=== PATIENT | female | born 1950 | race Caucasian/White ===

== ENCOUNTER → 2016-09-10 | Outpatient (CLI) | payer OTHER ==
[~2016-09-10] MED LIST: AMB5 PO; AMR2 PO; ARM1 PO; ATEN25TA PO; EFFSR75 PO; FRS/40 PO; GABA-113 PO; GLC500 PO; GLIM4TAB2 PO; LEVO150T PO; LISI-461 PO; MULT-506 PO; OSCD250 PO; POTA10CA28 PO; SIMV40TA2 PO
[2016-09-10 15:27] LABS: BASO % 0.2 %; BASO ABS # 0.02 K/uL (0-0.2); COMPLETE YES; EOS % 1.9 %; HEMATOCRIT 40.4 % (37-47); IG% 0.1 %; LYMPH % 19.5 %; LYMPH ABS # 1.64 K/uL (1.2-3.4); MEAN CORPUSCULAR HEMOGLOBIN 31.6 pg (25-34); MEAN CORPUSCULAR HGB CONC 35.1 g/dl (32-36); MEAN PLATELET VOLUME 8.9 fL (7.4-10.4); NEUT % 70.3 %; PLATELET COUNT 193 K/uL (130-400); RED BLOOD COUNT 4.49 M/uL (4.2-5.4); WHITE BLOOD COUNT 8.41 K/uL (4.8-10.8)
== END | disposition home or self-care (01) ==
LOC: C.LABSPEC 15:06
PROVIDERS: ATTEND Internal Medicine
DX: M11.872 Other specified crystal arthropathies, left ankle and foot (principal)

== ENCOUNTER → 2016-10-14 | Outpatient (CLI) | payer OTHER ==
[2016-10-14 14:45] LABS: BASO % 0.3 %; BASO ABS # 0.02 K/uL (0-0.2); COMPLETE YES; EOS % 2.2 %; HEMATOCRIT 41.4 % (37-47); IG% 0.5 %; LYMPH % 26.9 %; LYMPH ABS # 2.12 K/uL (1.2-3.4); MEAN CELL VOLUME 91.8 fL (80-100); MEAN CORPUSCULAR HEMOGLOBIN 31.5 pg (25-34); MEAN CORPUSCULAR HGB CONC 34.3 g/dl (32-36); MEAN PLATELET VOLUME 8.7 fL (7.4-10.4); MONO % 6.8 %; NEUT % 63.3 %; PLATELET COUNT 190 K/uL (130-400); RED BLOOD COUNT 4.51 M/uL (4.2-5.4); WHITE BLOOD COUNT 7.89 K/uL (4.8-10.8)
[2016-10-14 14:52] LABS: ALT/SGPT 26 U/L (12-78); AST/SGOT 15 U/L (15-37); BLOOD UREA NITROGEN 15 mg/dl (7-18); BUN/CREATININE RATIO 19.9 (10-20); CALCIUM 8.8 mg/dl (8.5-10.1); CARBON DIOXIDE 31 mmol/L (21-32); CHLORIDE 102 mmol/L (98-107); CHOLESTEROL 157 mg/dl (0-200); CREATININE 0.76 mg/dl (0.60-1.20); GLUCOSE 128 mg/dl (70-99); POTASSIUM 4.4 mmol/L (3.5-5.1); SODIUM 140 mmol/L (136-145)
[2016-10-14 15:00] LABS: ESTIMATED AVERAGE GLUCOSE 166 mg/dl; HA1C FLAG Normal (Normal)
[2016-10-14 15:03] LABS: ALB/GLOB RATIO 0.9 (0.9-2); ALKALINE PHOSPHATASE 60 U/L (45-117); CHOLESTEROL/HDL RATIO 2.7; HDL CHOLESTEROL 59 mg/dl; THYROID STIMULATING HORMONE 0.043 uIu/ml (0.300-4.500); TRIGLYCERIDES 160 mg/dl (0-150); VERY LOW DENSITY LIPOPROT CALC 32 mg/dl
[2016-10-14 15:20] LABS: THYROXINE (T4) 15.3 mcg/dl (4.5-10.9)
[2016-10-14 15:21] LABS: T3 TOTAL 1.08 ng/ml (0.60-1.81)
[2016-10-14 15:24] LABS: RATIO 8.9 mcg/mg (0-30.0)
== END | disposition home or self-care (01) ==
LOC: C.LABSPEC 14:33
PROVIDERS: ATTEND Internal Medicine
DX: M19.90 Unspecified osteoarthritis, unspecified site (principal); E03.9 Hypothyroidism, unspecified; I10 Essential (primary) hypertension; E11.9 Type 2 diabetes mellitus without complications; E78.5 Hyperlipidemia, unspecified; E55.9 Vitamin D deficiency, unspecified

== ENCOUNTER → 2016-10-22 | Outpatient (CLI) | payer OTHER ==
[~2016-10-22] MED LIST changes: +GADAVIST IV PRN
--- NOTE | 2016-10-22 15:31 | DIAGNOSTIC IMAGING REPORT ---
MRI OF THE BRAIN COMBO CLINICAL HISTORY: Meningioma. COMPARISON STUDY: CT of the brain dated 12/23/2014 and 02/10/2009. TECHNIQUE: MRI of the brain was performed utilizing various T1 and T2-weighted sequences in the axial, sagittal, and coronal planes. Contrast-enhanced sequences were acquired following the administration of 11 cc of Gadavist. FINDINGS: Brain parenchyma: There is a well-circumscribed homogeneously enhancing mass lesion centered in the right cavernous sinus measuring 3.0 x 3.9 x 2.7 cm. This extends along the greater wing of the right sphenoid and encases the right internal carotid artery. This also extends into the right sphenoid sinus. The appearance is typical for a meningioma, and this has likely not significantly changed from 12/23/2014 although direct comparison is difficult due to differences in modality. This mass approaches the right aspect of the optic chiasm and slightly deviates the pituitary infundibulum to the left. No additional enhancing lesions are identified. There is minimal patchy subcortical and periventricular microangiopathic disease. There is minimal surrounding edema within the medial right temporal lobe segment mass effect. No hemorrhage is seen. There is no restricted diffusion to suggest acute ischemia. No extra-axial fluid collection is seen. The cerebellar tonsils are normal in configuration. Ventricles, sulci, and cisterns: Normal in configuration. Pituitary and sella: Partially empty sella is incidentally noted. Intracranial vasculature: Normal flow voids are maintained at the skull base. Orbits: The bony orbits are grossly intact. Orbital contents are normal in appearance noting bilateral ocular lens implants. Sinuses and mastoids: There are large bilateral mastoid effusions. Nodular soft tissue is present within the right sphenoid sinus. The remaining paranasal sinuses are clear. Calvarium: Unremarkable. Cervical cord: Partially visualized cervical spinal cord is normal in morphology and signal intensity. IMPRESSION: 1. There is a well-circumscribed and homogeneously enhancing mass lesion centered in the right cavernous sinus as detailed above. This encases the right internal carotid artery and causes mild mass effect on the right temporal lobe. This lesion is typical in appearance for a large meningioma, and this is likely similar in appearance to the 12/23/2014 CT scan; however, direct comparison is difficult due to differences in modality. 2. No additional enhancing mass lesion is identified. 3. There is no hemorrhage, midline shift, or evidence of acute ischemia. Electronically signed by: Donell Mortensen M.D. 10/22/2016 3:30 PM Dictated Date/Time: 10/22/2016 2:24 PM
== END | disposition home or self-care (01) ==
LOC: C.MRI 11:59
PROVIDERS: ATTEND Internal Medicine
DX: C70.9 Malignant neoplasm of meninges, unspecified (principal)

== ENCOUNTER → 2017-03-29 | Outpatient (CLI) | payer OTHER ==
[~2017-03-29] MED LIST changes: -GADAVIST IV PRN
[2017-03-29 17:06] LABS: BASO % 0.5 %; BASO ABS # 0.03 K/uL (0-0.2); COMPLETE YES; EOS % 5.9 %; IG% 0.3 %; LYMPH % 27.7 %; LYMPH ABS # 1.82 K/uL (1.2-3.4); MEAN CELL VOLUME 94.7 fL (80-100); MEAN CORPUSCULAR HEMOGLOBIN 31.9 pg (25-34); MEAN CORPUSCULAR HGB CONC 33.7 g/dl (32-36); MONO % 8.2 %; NEUT % 57.4 %; PLATELET COUNT 208 K/uL (130-400); RED BLOOD COUNT 4.54 M/uL (4.2-5.4); WHITE BLOOD COUNT 6.57 K/uL (4.8-10.8)
[2017-03-29 17:17] LABS: BLOOD UREA NITROGEN 12 mg/dl (7-18); BUN/CREATININE RATIO 13.5 (10-20); CALCIUM 8.8 mg/dl (8.5-10.1); CARBON DIOXIDE 28 mmol/L (21-32); CHLORIDE 102 mmol/L (98-107); CREATININE 0.87 mg/dl (0.60-1.20); GLUCOSE 171 mg/dl (70-99); POTASSIUM 4.1 mmol/L (3.5-5.1); SODIUM 137 mmol/L (136-145)
[2017-03-29 17:29] LABS: CHOLESTEROL 136 mg/dl (0-200); CHOLESTEROL/HDL RATIO 2.9; HDL CHOLESTEROL 47 mg/dl; LDL CHOLESTEROL CALCULATED 53 mg/dl; THYROID STIMULATING HORMONE 0.692 uIu/ml (0.300-4.500); TRIGLYCERIDES 178 mg/dl (0-150); VERY LOW DENSITY LIPOPROT CALC 36 mg/dl
[2017-03-30 06:24] LABS: ESTIMATED AVERAGE GLUCOSE 163 mg/dl; HA1C FLAG Normal (Normal)
== END | disposition home or self-care (01) ==
LOC: C.LABSPEC 16:23
PROVIDERS: ATTEND Internal Medicine
DX: M19.90 Unspecified osteoarthritis, unspecified site (principal); I10 Essential (primary) hypertension; E78.5 Hyperlipidemia, unspecified; E03.9 Hypothyroidism, unspecified

== ENCOUNTER → 2017-08-02 | Outpatient (CLI) | payer OTHER ==
[2017-08-02 15:21] LABS: HEMOGLOBIN A1C 8.6 % (4.5-5.6)
[2017-08-02 17:01] LABS: BLOOD UREA NITROGEN 15 mg/dl (7-18); CALCIUM 8.8 mg/dl (8.5-10.1); CARBON DIOXIDE 32 mmol/L (21-32); CHOLESTEROL 162 mg/dl (0-200); CREATININE 0.82 mg/dl (0.60-1.20); GLUCOSE 152 mg/dl (70-99); SODIUM 137 mmol/L (136-145)
[2017-08-02 17:06] LABS: LDL CHOLESTEROL (DIRECT) 92 mg/dl
== END | disposition home or self-care (01) ==
LOC: C.LABSPEC 14:48
PROVIDERS: ATTEND Internal Medicine
DX: I10 Essential (primary) hypertension (principal); E78.5 Hyperlipidemia, unspecified; E11.9 Type 2 diabetes mellitus without complications

== ENCOUNTER → 2017-12-01 | Outpatient (CLI) | payer OTHER ==
[2017-12-01 17:13] LABS: BLOOD UREA NITROGEN 12 mg/dl (7-18); CALCIUM 8.8 mg/dl (8.5-10.1); CARBON DIOXIDE 28 mmol/L (21-32); CREATININE 0.88 mg/dl (0.60-1.20); GLUCOSE 212 mg/dl (70-99); POTASSIUM 4.2 mmol/L (3.5-5.1); SODIUM 137 mmol/L (136-145)
[2017-12-01 17:16] LABS: ALKALINE PHOSPHATASE 62 U/L (45-117); ALT/SGPT 32 U/L (12-78); AST/SGOT 36 U/L (15-37); CHOLESTEROL 218 mg/dl (0-200); LDL CHOLESTEROL (DIRECT) 156 mg/dl; TOTAL PROTEIN 7.7 gm/dl (6.4-8.2)
[2017-12-02 06:57] LABS: HEMOGLOBIN A1C 8.9 % (4.5-5.6)
== END | disposition home or self-care (01) ==
LOC: C.LABSPEC 16:37
PROVIDERS: ATTEND Internal Medicine
DX: E11.65 Type 2 diabetes mellitus with hyperglycemia (principal); I10 Essential (primary) hypertension; E66.01 Morbid (severe) obesity due to excess calories; E03.9 Hypothyroidism, unspecified

== ENCOUNTER 2019-05-02 16:30 | Inpatient (IN) ==
[~2019-05-02 16:30] MED LIST changes: -AMB5 PO; -AMR2 PO; -ARM1 PO; -ATEN25TA PO; +ATROPINE SULFATE 0.1 MG/ML 10ML SYR IV ONE; -EFFSR75 PO; -FRS/40 PO; -GABA-113 PO; -GLC500 PO; -GLIM4TAB2 PO; -LEVO150T PO; -LISI-461 PO; -MULT-506 PO; -OSCD250 PO; -POTA10CA28 PO; -SIMV40TA2 PO
[2019-05-02] MEDS ORDERED: ATROPINE SO4 1 MG/ML 1ML VIAL ONE (17:17)
[2019-05-02] MEDS ORDERED: DOPamine 400MG / 250ML D5W IV ONE (17:17)
[2019-05-02 17:19] LABS: Basophils # (auto) 0.01 K/uL (0-0.2); Basophils % (auto) 0.1 %; Eosinophils # (auto) 0.05 K/uL (0-0.5); Eosinophils % (auto) 0.6 %; Hematocrit (blood only) 40.1 % (37-47); Hemoglobin 13.8 g/dL (12.0-16.0); Immature Granulocytes # (auto) 0.02 K/uL (0.00-0.02); Immature Granulocytes % (auto) 0.2 %; Lymphocytes # (auto) 1.24 K/uL (1.2-3.4); Lymphocytes % (auto) 13.9 %; Mean Corpuscular Hemoglobin 33.1 pg (25-34); Mean Corpuscular Hgb Conc 34.4 g/dL (32-36); Mean Corpuscular Volume 96.2 fL (80-100); Mean Platelet Volume 9.1 fL (7.4-10.4); Monocytes # (auto) 0.49 K/uL (0.11-0.59); Monocytes % (auto) 5.5 %; Neutrophils # (auto) 7.09 K/uL (1.4-6.5); Neutrophils % (auto) 79.7 %; Platelet Count 198 K/uL (130-400); RDW Coefficient of Variation 13.4 % (11.5-14.5); Red Blood Count 4.17 M/uL (4.2-5.4)
[2019-05-02 17:24] LABS: iSTAT Creatinine 0.9 mg/dl (0.6-1.3); iSTAT Hemoglobin 13.3 g/dl (12.0-16.0); iSTAT Ionized Calcium 0.97 mmol/l (1.12-1.32)
[2019-05-02] MEDS ORDERED: RAPID SEQUENCE INDUCTION BAG ONE (17:25)
--- NOTE | 2019-05-02 17:30 | XRay Report ---
XR chest 1V portable CLINICAL HISTORY: 68 years-old Female presenting with Chest Pain. TECHNIQUE: Portable semiupright AP view of the chest was obtained. Pulmonary vascular prominence. COMPARISON: 12/23/2014. FINDINGS: Atherosclerosis of the aortic arch. Cardiac silhouette enlarged. Pulmonary vascular prominence. No fo cornelio opacity. No large effusion or pneumothorax. Osseous structures normal. . External leads project o ernst the right upper quadrant and thorax. IMPRESSION: 1. Cardiomegaly with mild volume overload. No advanced congestive change. No. Pulmonary edema. Electronically signed by: Garry Guillen M.D. 05/02/2019 5:29 PM
[2019-05-02] MEDS ORDERED: CALCIUM GLUCONATE 10% 10 ML VIAL IV ONE (17:32)
[2019-05-02] MEDS ORDERED: HEPARIN (PORCINE) 1000 UNIT/ML 10 ML (CATH LAB USE ONLY) ONE (17:34)
[2019-05-02] MEDS ORDERED: NiCARDipine HCL INJ 2.5 MG/ML 10 ML AMP ONE (17:34)
[2019-05-02] MEDS ORDERED: MIDAZOLAM HCL 1 MG/ML 2ML VIAL ONE (17:34)
[2019-05-02] MEDS ORDERED: fentaNYL citrate 100 MCG/2 ML VIAL ONE (17:34)
[2019-05-02] MEDS ORDERED: NITROGLYCERIN/D5W 100MCG/ML 20ML SYR ONE (17:35)
[2019-05-02 17:37] LABS: BUN Creatinine Ratio 15.3 (10-20); Blood Urea Nitrogen 15 mg/dl (7-18); Calcium 8.7 mg/dl (8.5-10.1); Carbon Dioxide 25 mmol/L (21-32); Chloride 104 mmol/L (98-107); Creatinine Clr Calc Pharmacy 62.2 ml/min; Est GFR (African American) 68.7; Est GFR (Non-African American) 59.3; Glucose 236 mg/dl (70-99); Lipase 106 U/L (73-393); Magnesium 1.6 mg/dl (1.8-2.4); Potassium 4.7 mmol/L (3.5-5.1); Sodium 138 mmol/L (136-145)
[2019-05-02] MEDS ORDERED: ONDANSETRON INJ 2 MG/ML 2 ML VIAL ONE (17:39)
[2019-05-02 17:41] LABS: Troponin I < 0.015 ng/ml (0-0.045)
[2019-05-02] MEDS ORDERED: ICU PROTOCOL FOR HYPERGLYCEMIA PRN ×2 (17:52→20:34)
--- NOTE | 2019-05-02 18:38 | Pre Anesthesia Assessment ---
Date of Service May 02, 2019 Pre Sedation Assessment Vital Signs Temp Pulse Pulse Resp BP BP Pulse Ox 05/02/19 17:20 32 L 22 133/52 L 95 05/02/19 16:44 97.3 F L 31 L 22 119/50 L 93 Cardiovascular RRR, no murmur, no edema Respiratory normal respiratory effort, lungs clear to auscultation Pre-Sedation Airway Assessment Smoking Status: Never smoker Hx Sleep Apnea: No Hx Difficult Intubation: No Short, Thick Neck: No Thyromental Distance: < 3.5 Finger Breadths Oral Cavity: + WNL Mallampati Class: III ASA: ASA3 Procedure Planning Contraindications for Sedation: none Current Medications Reviewed: Yes Notes The planned sedation has been discussed with the patient. Informed Consent was obtained. I have identified the patient, determined the appropriateness of sedation and have assessed the patient immediately prior to the procedure. All medicine(s) and interventions are by my order.
--- NOTE | 2019-05-02 18:38 | Post Anesthesia Assessment ---
Date of Service May 02, 2019 Post Sedation Assessment Vital Signs Temp Pulse Pulse Resp BP BP Pulse Ox 05/02/19 17:20 32 L 22 133/52 L 95 05/02/19 16:44 97.3 F L 31 L 22 119/50 L 93 Recovery Score Activity: Moves 4 extremities Respiration: Deep Breath/Cough Circulation: +/-20% PreAnes Value Consciousness: Fully Awake Oxygen Saturation: O2 needed for >90% Discharge Sedation Level of Care: Fast Track Phase II Post Sedation Plan On clinical assessment, the patient appears to have tolerated the sedation without complications. Patient is recovering as anticipated. Patient will continue to be monitored by nursing and may be discharged when sedation discharge criteria are met per below protocol. Upon Completions of procedure and additional 15 minutes continue every 5 minute vital signs and the P.A.R. score; then discharge to a Phase I or Fast Track to Phase II per the following guidelines: * Discharge Patient to appropriate Phase II area if PAR is 8 or greater or return to pre- procedure baseline. The post - procedure orders will be as directed. * If PAR score is less than 8 or not return to pre-procedure baseline then patient will follow Phase I monitoring till PAR is reached for Phase II. The Phase I may be done in procedure room or may call to secure a Phase I area. * If naloxone or flumazenil are used for reversal, hold in Phase I for continued monitoring from when last reversal dose was given for a minimum of 60 minutes or longer pending the nurse and/or physician discretion of patient condition before discharge to Phase II. Please call the Sedation Physician to re-evaluate and complete post-note for discharge to Phase II area. Do NOT discharge from procedure sedation or Phase 1 until post- sedation evaluation note is complete by procedure /sedation MD Sedation Discharge Instructions to be given to the patient at discharge to home.
--- NOTE | 2019-05-02 18:47 | Cardiac Catheterization ---
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 Cardiac Status Clinical evaluation leading to the procedure CAD Presenation: Sx unlikely to be ischemic Anginal Classification: No Symptoms Heart Failure: No Cardiogenic Shock within 24 Hours: No Cardiac Arrest within 24 Hours: No Imaging Studies Past 6 Months: No Stress Studies Past 6 Months: No Diagnostic Physicians Name: Boris Lantigua MD Status: Urgent Closure Device Percutaneous Entry Location: RT internal jugular Closure Device: None-Manual Hold Recommendations: Medical Therapy and/or Counseling and Management Recommendatons (EP evaluation tomorrow for permanent pacemaker) Intraprocedure Events Significant Disection: No Perforation: No Cardiac Cath Procedure Full Procedure Date May 02, 2019 Pre-Procedure Diagnosis Pre-Procedure Diagnosis: Cardiothoracic Symptom (Complete heart block) AUC Score AUC Score: 7 Post-Procedure Diagnosis Post-Procedure Diagnosis: Cardiothoracic Finding (Complete heart block) Procedure(s) Performed Procedure(s) Performed: Temporary Pacemaker and Procedure (Right radial arterial line) Lcsw Boris Lantigua MD Online Facilitator(s) Omar Estimated Blood Loss Estimated Blood Loss: 5 Medication(s) Medication(s): Fentanyl and Versed Summary of Findings Indication: Complete heart block with hemdynamic instability Procedure: - Moderate sedation and local anesthesia with lidocaine - Right IJ access with 6Fr sheath under ultrasound guidance. - 6Fr temporary pacing wire navigated into RV under fluoroscopy - Appropriate pacing confirmed down to output <1 mA - Right radial artery 20ga arterial line placed. - Dopamine weaned off - Final pacemaker settings: VVI 60bpm, output 5 mA Summary: 1. Successful placement of temporary transvenous pacemaker via right internal jugular vein. 2. Successful placement of right radial A-line. Recommendations: - EP evaluation for permanent pacemaker tomorrow. Hemodynamics Rest Ao:: 133/64/87 Final Ao: -- LV: -- Recommendations Recommendations: Medical Therapy and/or Counseling and Management Recommendatons (EP evaluation tomorrow for permanent pacemaker) Specimens Specimens: None Radiation Exposure (mGy) 35 Contrast (mls) -- Fluids (cc crystalloids) Fluids (cc crystalloids): 54 Drains Drains: none Anesthesia moderate Procedural Complication(s) None Disposition ICU I attest to the content of the Intraoperative Record and any orders documented therein. Any exceptions are noted below.
[2019-05-02] MEDS ORDERED: DOCUSATE SODIUM 100 MG CAP PO PRN (19:58)
--- NOTE | 2019-05-02 20:14 | Critical Care Consultation ---
Date of Consultation May 02, 2019 Assessment & Plan (1) Admitted to intensive care unit: Reason Critically Ill: 68-year-old female with idioventricular rhythm progressing to complete heart block requiring emergent placement of RIGHT-sided internal jugular transvenous pacemaker requiring close hemodynamic monitoring status post intervention. NEURO - * CAM ICU: NEGATIVE * Depression: Continue home medications CARDIAC/VASCULAR - * Complete heart block: * Currently with capture utilizing transvenous pacemaker. * Monitor closely for any dislodgment or changes in rhythm. * Further evaluation with possible need for permanent pacemaker placement. * Agree with assessment of Lyme study. * Monitor on telemetry. RESPIRATORY - * Saturating well on room air. GI/NUTRITION - * N.p.o. after midnight with possible planned procedure tomorrow. RENAL/LYTES - * No significant electrolyte derangements. - * No concerns at this time. ENDO - * DMII * BSGs per unit protocol. ISS --> gtt per unit policy. * Hypothyroidism: * Will check TSH/Free T4 levels, however w/ the absence of other worrisome s/s, would be unlikely contributor. HEME - * Stable H&H ID - * No concerns for infection at this time. LINES/IV ACCESS - * PIVs x2 * RIGHT IJ Transvenous Pacemaker DVT PROPHYLAXIS - * Per cardiology * SCDs I have personally spent 35 minutes of critical care time in the direct management of this patient. This is a life/limb threatening event. This includes time spent evaluating patient, direct bedside care, chart review, placing orders, interpretation of diagnostic studies, discussion with consultants, patient, and family members, as well as other required patient management activities. This time is exclusive of all separately billable procedures, and teaching time and separate from and in addition to any other critical care service time. Thank you for allowing us to participate in the care of this patient. Please refer to my attending physician's documentation for any further recommendations. (2) Heart block AV complete: (3) Diabetes: (4) Hypertension: (5) Hypercholesteremia: (6) Breast cancer: (7) Benign brain tumor: (8) Hypothyroid: (9) Depression: Supervising Physician Co-Signing Physician Notes I have reviewed the documentation of Angie Foreman we discussed the patient via telephone. Agree with documentation. History of Present Illness Attending Physician: Shantell Yoder DO History of Present Illness Patient is a 68-year-old female with a significant past medical history of hypertension, hyperlipidemia, breast cancer, and benign brain tumor who presented to the emergency department earlier today with lightheadedness, fatigue, and feeling "off". She woke up today and reported feeling the symptoms. She presented to her orthopedic appointment and had cortisone injections in the bilateral knees. After this, she had worsening lightheadedness and diaphoresis. She was brought immediately to the emergency department where she was found to have a heart rate in the 30s. She was started on a dopamine drip and subsequently taken to the catheterization lab where she underwent successful placement of RIGHT internal jugular transvenous pacer placement. Procedure was uneventful. She was transferred to the ICU for continued management. Upon evaluation in the ICU, the patient is awake, alert, and oriented. She reports feeling much better at this time. She endorses no further lightheadedness, dizziness, or diaphoresis. Prior to the event, she denies any chest pain, palpitations, or pleuritic pain. Currently, she offers no complaints at this time. Allergies Allergy/AdvReac Type Severity Reaction Status Date / Time No Known Allergies Allergy NKA Verified 12/23/14 23:07 Home Medications Home Medications Medication Instructions Recorded Confirmed Type furosemide 40 mg PO DAILY 05/02/19 05/02/19 History gabapentin 300 mg PO TID 05/02/19 05/03/19 History glimepiride 2 mg PO QPM 05/02/19 05/02/19 History glimepiride 4 mg PO QAM 05/02/19 05/02/19 History levothyroxine 150 mcg PO DAILY 05/02/19 05/02/19 History lisinopril 10 mg PO DAILY 05/02/19 05/02/19 History metformin 1,000 mg PO QPM 05/02/19 05/02/19 History metformin 500 mg PO QAM 05/02/19 05/02/19 History potassium chloride 10 meq PO BID 05/02/19 05/02/19 History simvastatin 40 mg PO HS 05/02/19 05/02/19 History venlafaxine 75 mg PO DAILY 05/02/19 05/02/19 History zolpidem 10 mg PO HS 05/02/19 05/02/19 History nystatin 5 ml PO ACHS 7 Days #150 ml 05/04/19 Rx Patient History Medical History Diabetes (Acute) Hypertension (Chronic) Hypercholesteremia (Chronic) Breast cancer (Resolved) s/p lumpectomy Benign brain tumor (Chronic) meningioma Hypothyroid Surgical History History of cholecystectomy (Resolved) History of carpal tunnel surgery History of dilation and curettage History of lumpectomy History of parathyroid surgery Family History Father Pacemaker Social History Preferred Language: [place] Communication Ability: Effective Technician Automatic Required: No Beliefs That Will Affect Care: None marital status: Current Living Situation: Spouse Feels Safe at Home: Yes Smoking Status: Never smoker Second Hand Exposure: No ; Hx Alcohol Use: No Hx Substance Use: No Review of Systems Review of Systems: A complete 10 point review of systems was reviewed with the patient with pertinent positives and negatives as per history of present illness. All else were negative. Physical Exam Physical Exam: VITAL SIGNS - Vital signs and nursing notes were reviewed. GENERAL - 68-year-old female appearing her stated age who is in no acute distress. Communicates well with provider and answers questions appropriately. HEAD - NC/AT. EYES - PERRL with EOMI bilaterally. Sclera anicteric. Palpebral conjunctiva pink and moist with no injection noted. EARS - No deformities of external structures noted on gross examination bilaterally. NOSE - Midline and without cyanosis. No epistaxis or purulent drainage noted. MOUTH/OROPHARYNX - Without perioral cyanosis. Buccal mucosa pink and moist. NECK - Neck with FROM. Supple to palpation. RIGHT IJ transvenous pacer in place. Dressing clean, dry, and intact. LUNGS - Chest wall symmetric without accessory muscle use, intercostals retractions, or central cyanosis. Normal vesicular breath sounds CTA B/L. No wheezes, rales, or rhonchi appreciated. CARDIAC - RRR with S1/S2. No murmur, rubs, or gallops appreciated. No reproducible tenderness to palpation appreciated over the anterior chest wall. ABDOMEN - Abdominal contour obese without pulsations or visible masses. BS normoactive all four quadrants. No tenderness, palpable masses, hepatosplenomegaly, or ascites noted. EXTREMITIES - No clubbing or peripheral cyanosis. No pretibial edema present. +3/5 radial and dorsalis pedis pulses palpated throughout. +5/5 strength noted in UE/LE bilaterally. NEUROLOGIC - Cranial nerves II through XII grossly intact. Sensory intact to light touch throughout. PSYCH - A&Ox3 and cooperates fully with examiner. Pt is very pleasant and interacts well with examiner. Results & Data Vital Signs (Past 12 Hours) Vital Signs Temp Pulse Pulse Resp BP BP Pulse Ox 05/02/19 19:50 84 31 H 92 05/02/19 19:40 86 18 92 05/02/19 19:30 86 18 91 05/02/19 19:20 86 23 92 05/02/19 19:10 89 94 05/02/19 19:00 36.8 C 87 95 05/02/19 18:50 87 93 05/02/19 17:20 32 L 22 133/52 L 95 05/02/19 16:44 36.3 C L 31 L 22 119/50 L 93 PG Care Time/CCT Total # of Minutes Spent Total Time Spent with Patient: Total time spent is greater than 50% in coordination of care (as documented) at patient's floor/unit and/or counseling patient: Critical Care Time: Yes Total Critical Care Time: 35 (1) Diabetes Diabetes mellitus complication status: without complication Diabetes mellitus skilled nursing insulin use: without health information systems technician use Diabetes mellitus type: type 2 Qualified Code(s): E11.9 - Type 2 diabetes mellitus without complications (2) Depression Active/Remission status: remission status unspecified Depression Type: major depressive disorder Major depression recurrence: recurrent Qualified Code(s): F33.9 - Major depressive disorder, recurrent, unspecified (3) Hypothyroid Hypothyroidism type: unspecified Qualified Code(s): E03.9 - Hypothyroidism, unspecified (4) Hypertension Hypertension type: essential hypertension Qualified Code(s): I10 - Essential (primary) hypertension
--- NOTE | 2019-05-02 20:19 | Emergency Department Note ---
Entered by Sabiha Sánchez acting as a scribe for Oscar Bush MD ED Provider Note CHIEF COMPLAINT: [] HISTORY OF PRESENT ILLNESS: The patient is a [] year old [] who presents to the Emergency Room with complaints of [] Pt denies LOC, headache, fevers, chills, diaphoresis, visual changes, neck pain, chest pain, breathing difficulties, nausea, vomiting, abdominal pain, back pain, melena, hematochezia, urinary symptoms, numbness, weakness, lymphadenopathy, rash, or other complaints. REVIEW OF SYSTEMS: See HPI for pertinent positives and negatives. A total of ten systems were revi ewed and were otherwise negative. PMHx/PSHx: [] SOCIAL HISTORY: Patient lives at home. PHYSICAL EXAM: GENERAL: Awake, alert, well-appearing, in no distress HENT: Normocephalic, atraumatic. Oropharynx unremarkable. EYES: PERRL. Normal conjunctiva. Sclera non-icteric. NECK: Inspection normal. Non-tender. Supple. No nuchal rigidity. FROM. No masses. RESPIRATORY: Clear to auscultation. No wheezes. No rales. Normal respiratory effort. CARDIAC: Normal rate. Normal rhythm. No murmurs. No rubs. Extremities warm and well perfused. Pulses equal. No JVD. GI: Soft, non-distended. No tenderness to palpation. No rebound or guarding. No masses. RECTAL: Deferred. MUSCULOSKELETAL: Atraumatic. Chest examination reveals no tenderness. The back is symmetrical on inspection without obvious abnormality. There is no CVA tenderness to palpation. No joint edema. LOWER EXTREMITIES: Calves are equal size bilaterally and non-tender. No edema. No discoloration. NEURO: Normal sensorium. No sensory or motor deficits noted. SKIN: No rash or jaundice noted. EMERGENCY DEPARTMENT COURSE: 1649: Past medical records reviewed. The patient was evaluated in room B12B, and a complete history and physical examination were performed. MEDICAL DECISION MAKING: [] IMPRESSION: [] PLAN: [] The scribe's documentation has been prepared under my direction and personally reviewed by me in its entirety. I confirm that the note above accurately reflects all work, treatment, procedures, and medical decision making performed by me. Past Med/Surg History Medical History Diabetes (Acute) Hypertension (Chronic) Hypercholesteremia (Chronic) Breast cancer (Resolved) Benign brain tumor (Chronic) Surgical History History of cholecystectomy (Resolved) Discharge Plan Visit Data Chief Complaint: Shortness of Breath/Dyspnea Stated Complaint: HARD BREATHING ED Provider: Oscar Bush Prescriptions Prescriptions: No Action Anastrozole (Arimidex *) 1 MG tablet 1 mg PO DAILY Qty: 0 RF: 0 Calcium/Vitamin D (Os-[place] 250 With D *) tablet 0.5 tab PO BID Qty: 0 RF: 0 Glimepiride (Amaryl *) 4 MG tablet 2 mg PO QPM Qty: 0 RF: 0 Lisinopril (Zestril) 10 MG tablet 10 mg PO QPM Qty: 0 RF: 0 Metformin HCL (Glucophage *) 1,000 MG tablet 1,000 mg PO dinner time Qty: 0 RF: 0 Multivitamin tablet 1 tab PO DAILY Qty: 0 RF: 0 Simvastatin (Zocor) 40 MG tablet 40 mg PO QPM Qty: 0 RF: 0 Gabapentin (Neurontin) 300 MG capsule 300 mg PO TID Qty: 0 RF: 0 Furosemide (Lasix) 40 MG tablet 40 mg PO DAILY Qty: 0 RF: 0 Metformin HCL (Glucophage *) 1,000 MG tablet 500 mg PO AM Qty: 0 RF: 0 Potassium Chloride (Micro-K Ext Rel) 10 MEQ CONTR REL CAP 10 meq PO BID Qty: 0 RF: 0 Venlafaxine Ext Rel (Effexor Extended Rel *) 75 MG CONTR REL CAP 75 mg PO DAILY Qty: 0 RF: 0 Zolpidem Tartrate (Ambien *) 5 MG tablet 10 mg PO HS Qty: 0 RF: 0 GLIMEPIRIDE 4 MG tablet 4 mg PO QAM Qty: 0 RF: 0 LEVOTHYROXINE SODIUM (SYNTHROID) 150 MCG tablet 150 mcg PO DAILY Qty: 0 RF: 0 ATENOLOL (TENORMIN) 25 MG tablet 0.5 tab PO DAILY 30 Days Qty: 30 RF: 5
--- NOTE | 2019-05-02 20:41 | History & Physical Report ---
Date of Service May 02, 2019 Assessment & Plan (1) Heart block AV complete: Patient presented in what appears to be AV disassociation, complete heart block with rate in the 30's variable blood pressure requiring Atropine and Dopamine infusion. S/p placement of temporary pacemaker by Dr. Lantigua. Presently seems to be in NSR without pacer assistance. Blood pressure is stable. Patient is asymptomatic. Uncertain etiology. Patient is on Atenolol 12.5mg at home. She has thyroid disease. No known tick exposure. Her father had a pacemaker placed in his late 60's, uncertain of the details. -Admit to MICU -Temporary pacer in place - VVI, rate of 60, 5mA -Hold Atenolol -Check TSH -Check Lyme serology -Optimize electrolytes - will replete Mg with 2gm, repeat level in AM. Repeat ionized calcium level in AM and replete if still low after Mg supplementation. -NPO after midnight tonight -Plan for permanent pacemaker placement in AM Present on Admission?: Yes (2) Hypertension: Blood pressure presently stable at 138/60 -Holding Atenolol for now -Hold Lisinopril for now, may resume tomorrow -Continue to monitor Present on Admission?: Yes (3) Hypercholesteremia: Chronic. Stable -Continue Simvastatin Present on Admission?: Yes (4) Diabetes: DMII fairly well controlled on oral agents, Metformin and Glimepiride. AIC = 7.7 in October 2018 -Hold Metformin and Glimepiride while inpatient -ICU insulin protocol -Continue Gabapentin -Repeat AIC -CC diet tonight, NPO after midnight Present on Admission?: Yes (5) Hypothyroid: Chronic. -Check TSH -Continue Synthroid Present on Admission?: Yes (6) Depression: Chronic. Stable -Continue Venlafaxine F/E/N - Heplock. Monitor electrolytes and replete as needed. Mg x 2 gm, repeat Mg and Ca levels in AM, continue Zolpidem as needed for insomnia Ppx - SCDs Code - Full per discussion with patient Disposition - MICU History of Present Illness Chief Complaint: SOB, diaphoresis Primary Care Provider: Hubert Cobos MD Ivett Chan is a pleasant 68yo C female with history of HTN, HLP, DM and Hypothyroidism presenting with symptomatic bradycardia, found to be in complete heart block. Patient states that around 13:00 today she began to feel "loopy" with slight shortness of breath, dizziness and diaphoresis. She was able to go to her appointment for her knee injection. Symptoms persisted through the afternoon so the patient came to the ER. Upon arrival she was found to be in complete heart block, rate of 31 bpm, variable blood pressures. Dr. Lantigua from Cardiology was consulted and the patient was taken for placement of a temporary pacemaker. Patient was administered 1mg of atropine and was started on a dopamine infusion which has since been discontinued. She had a temporary pacemaker placed through right internal jugular as well as placement of a right arterial line. Settings of VVI, 60bpm, 5mA. Procedure was well tolerated with no complications identified. The patient was transferred to the MICU for overnight, plans for permanent pacemaker placement in AM. Patient with no complaints at present. Denies ever having CP, palpitations, or syncope. Denies abdominal pain, nausea, vomiting, diarrhea or constipation. No additional complaints at this time. Appears to be in NSR at 86 bpm. No additional complaints at this time. Allergies Allergy/AdvReac Type Severity Reaction Status Date / Time No Known Allergies Allergy NKA Verified 12/23/14 23:07 Home Medications Home Medications Medication Instructions Recorded Confirmed Type atenolol 12.5 mg PO DAILY 05/02/19 05/02/19 History furosemide 40 mg PO DAILY 05/02/19 05/02/19 History gabapentin 300 mg PO UD 05/02/19 05/02/19 History glimepiride 2 mg PO QPM 05/02/19 05/02/19 History glimepiride 4 mg PO QAM 05/02/19 05/02/19 History levothyroxine 150 mcg PO DAILY 05/02/19 05/02/19 History lisinopril 10 mg PO DAILY 05/02/19 05/02/19 History metformin 1,000 mg PO QPM 05/02/19 05/02/19 History metformin 500 mg PO QAM 05/02/19 05/02/19 History potassium chloride 10 meq PO BID 05/02/19 05/02/19 History simvastatin 40 mg PO HS 05/02/19 05/02/19 History venlafaxine 75 mg PO DAILY 05/02/19 05/02/19 History zolpidem 10 mg PO HS 05/02/19 05/02/19 History Past Med/Surg History Medical History Diabetes (Acute) Hypertension (Chronic) Hypercholesteremia (Chronic) Breast cancer (Resolved) s/p lumpectomy Benign brain tumor (Chronic) meningioma Hypothyroid Surgical History History of cholecystectomy (Resolved) History of carpal tunnel surgery History of dilation and curettage History of lumpectomy History of parathyroid surgery Family History Father Pacemaker Social History Preferred Language: Malay Communication Ability: Effective 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 Beliefs That Will Affect Care: None Current Living Situation: Spouse Other Information That Helps Us Care for You: No Feels Safe at Home: Yes Safety Concerns: Feels Safe At This Time Smoking Status: Never smoker Do You Dip or Chew Tobacco: No ; Second Hand Exposure: No ; Tobacco Cessation Education Requested by Patient: No Hx Alcohol Use: No Hx Substance Use: No Review of Systems Review of Systems: All systems reviewed & are unremarkable except as noted in HPI & below Physical Exam Physical Exam: General: patient resting comfortably, NAD, non-toxic in appearance, AA&O x 4 Skin: warm, dry, intact, no rashes or lesions HEENT: NC/AT, PERRL, EOMI, anicteric sclera, conjunctiva without injection, external ear normal to inspection and nontender, nares patent, moist mucus membranes, dentition intact, no oropharyngeal lesions, neck supple, trachea midline, no LAD, no thyromegaly, no JVD, right IJ in place with pacer wire present. No bleeding, dressing intact Heart: +S1/S2, regular, no m/r/g Lungs: equal air entry bilaterally, no rales/rhonchi/wheezes Abd: +BS, soft, NT/ND, no masses/organomegaly/ascites Ext: warm, 2+ pulses in UE/LE bilaterally, no clubbing/cyanosis or edema, right radial arterial line in place, no bleeding/hematoma, dressing intact Neuro: nonfocal, patient AA&O x 4, speech intact, no facial droop, moving all extremities on command with equal strength 5/5 Results & Data Vital Signs (Past 12 Hours) Vital Signs Temp Pulse Pulse Resp BP BP Pulse Ox 05/02/19 19:50 84 31 H 92 10/09/19 19:40 86 18 92 05/02/19 19:30 86 18 91 05/02/19 19:20 86 23 92 05/02/19 19:10 89 94 05/02/19 19:00 36.8 C 87 95 05/02/19 18:50 87 93 05/02/19 17:20 32 L 22 133/52 L 95 05/02/19 16:44 36.3 C L 31 L 22 119/50 L 93 Laboratory Results Lab Results 05/02/19 05/02/19 05/02/19 Range/Units 17:10 17:10 17:10 WBC 8.90 (4.8-10.8) K/uL RBC 4.17 L (4.2-5.4) M/uL Hgb 13.8 (12.0-16.0) g/dL POC Hgb 13.3 (12.0-16.0) g/dl Hct 40.1 (37-47) % POC Hct 39 (37-47) % MCV 96.2 (80-100) fL MCH 33.1 (25-34) pg MCHC 34.4 (32-36) g/dL RDW Std Deviation 47.0 H (36.4-46.3) fL RDW Coeff of Edy 13.4 (11.5-14.5) % Plt Count 198 (130-400) K/uL MPV 9.1 (7.4-10.4) fL Immature Gran % (Auto) 0.2 % Neut % (Auto) 79.7 % Lymph % (Auto) 13.9 % [place] % (Auto) 5.5 % Eos % (Auto) 0.6 % Baso % (Auto) 0.1 % Immature Gran # (Auto) 0.02 (0.00-0.02) K/uL Neut # (Auto) 7.09 H (1.4-6.5) K/uL Lymph # (Auto) 1.24 (1.2-3.4) K/uL [place] # (Auto) 0.49 (0.11-0.59) K/uL Eos # (Auto) 0.05 (0-0.5) K/uL Baso # (Auto) 0.01 (0-0.2) K/uL POC Sodium 138 (135-144) mEq/L Sodium 138 (136-145) mmol/L POC Potassium 5.0 (3.3-5.0) mEq/L Potassium 4.7 (3.5-5.1) mmol/L POC Chloride 101 (101-112) mEq/L Chloride 104 (98-107) mmol/L Carbon Dioxide 25 (21-32) mmol/L POC Total CO2 29 (24-31) mEq/l Anion Gap 9.0 (3-11) POC Anion Gap 15.0 L (16-25) mmol/L POC BUN 17 (7-18) mg/dl BUN 15 (7-18) mg/dl Creatinine 0.98 (0.6-1.2) mg/dl POC Creatinine 0.9 (0.6-1.3) mg/dl Est Cr Clr Drug Dosing 62.2 ml/min Est GFR ( Amer) 68.7 Est GFR (Non-Af Amer) 59.3 BUN/Creatinine Ratio 15.3 (10-20) Glucose 236 H (70-99) mg/dl POC Glucose (70-99) POC Glucose (other) 245 H (70-99) mg/dl Calcium 8.7 (8.5-10.1) mg/dl POC Ioniz Calcium Berna 0.97 L (1.12-1.32) mmol/l Magnesium 1.6 L (1.8-2.4) mg/dl POC Troponin I (0-0.045) ng/ml Troponin I < 0.015 (0-0.045) ng/ml Lipase 106 (73-393) U/L 05/02/19 05/02/19 Range/Units 17:16 17:37 WBC (4.8-10.8) K/uL RBC (4.2-5.4) M/uL Hgb (12.0-16.0) g/dL POC Hgb (12.0-16.0) g/dl Hct (37-47) % POC Hct (37-47) % MCV (80-100) fL MCH (25-34) pg MCHC (32-36) g/dL RDW Std Deviation (36.4-46.3) fL RDW Coeff of Edy (11.5-14.5) % Plt Count (130-400) K/uL MPV (7.4-10.4) fL Immature Gran % (Auto) % Neut % (Auto) % Lymph % (Auto) % [place] % (Auto) % Eos % (Auto) % Baso % (Auto) % Immature Gran # (Auto) (0.00-0.02) K/uL Neut # (Auto) (1.4-6.5) K/uL Lymph # (Auto) (1.2-3.4) K/uL [place] # (Auto) (0.11-0.59) K/uL Eos # (Auto) (0-0.5) K/uL Baso # (Auto) (0-0.2) K/uL POC Sodium (135-144) mEq/L Sodium (136-145) mmol/L POC Potassium (3.3-5.0) mEq/L Potassium (3.5-5.1) mmol/L POC Chloride (101-112) mEq/L Chloride (98-107) mmol/L Carbon Dioxide (21-32) mmol/L POC Total CO2 (24-31) mEq/l Anion Gap (3-11) POC Anion Gap (16-25) mmol/L POC BUN (7-18) mg/dl BUN (7-18) mg/dl Creatinine (0.6-1.2) mg/dl POC Creatinine (0.6-1.3) mg/dl Est Cr Clr Drug Dosing ml/min Est GFR ( Amer) Est GFR (Non-Af Amer) BUN/Creatinine Ratio (10-20) Glucose (70-99) mg/dl POC Glucose 222 H (70-99) POC Glucose (other) (70-99) mg/dl Calcium (8.5-10.1) mg/dl POC Ioniz Calcium Berna (1.12-1.32) mmol/l Magnesium (1.8-2.4) mg/dl POC Troponin I < 0.03 (0-0.045) ng/ml Troponin I (0-0.045) ng/ml Lipase (73-393) U/L Diagnostic Findings XR chest 1V portable CLINICAL HISTORY: 68 years-old Female presenting with Chest Pain. TECHNIQUE: Portable semiupright AP view of the chest was obtained. Pulmonary vascular prominence. COMPARISON: 12/23/2014. FINDINGS: Atherosclerosis of the aortic arch. Cardiac silhouette enlarged. Pulmonary vascular prominence. No focal opacity. No large effusion or pneumothorax. Osseous structures normal. . External leads project over the right upper quadrant and thorax. IMPRESSION: 1. Cardiomegaly with mild volume overload. No advanced congestive change. No. Pulmonary edema. Electronically signed by: Garry Guillen M.D. 05/02/2019 5:29 PM Dictated: 05/02/19 172 Transcribed: 05/02/191725 ECG Additional Comments: The study reveals complete heart block, rate of 30bpm, KTJ=285, YPn=637, no acute ischemic changes Code Status & VTE Plan Code Status FULL CODE VTE Prophylaxis Plan VTE Prophylaxis will be ordered: Yes Critical Care Time Critical Care Time: Yes Total Critical Care Time: 40 PG Care Time/CCT Total # of Minutes Spent Total Time Spent with Patient: Total time spent is greater than 50% in coordination of care (as documented) at patient's floor/unit and/or counseling patient: Critical Care Time: Yes Total Critical Care Time: 40 (1) Hypertension Hypertension type: essential hypertension Qualified Code(s): I10 - Essential (primary) hypertension (2) Diabetes Diabetes mellitus type: type 2 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
[2019-05-02] MEDS ORDERED: GLIMEPIRIDE 2 MG TAB PO SCH (21:00)
[2019-05-02] MEDS: MAGNESIUM SULFATE / D5W 1 GM/100 ML BAG IV SCH ×2 (21:27→22:34)
[2019-05-02] MEDS: SIMVASTATIN 40 MG TAB PO SCH (21:28)
--- NOTE | 2019-05-02 22:26 | Emergency Department Note ---
Entered by Cara Toledo acting as a scribe for History of Present Illness General Chief complaint: Shortness of Breath/Dyspnea Stated complaint: HARD BREATHING Time Seen by Provider: 05/02/19 17:03 Source: patient History of Present Illness Provider complaint: nausea Onset (ago): hour(s) 3 Pain Consistency: + other (episode) Quality: + other (nausea) Associated symptoms: + diaphoresis, + shortness of breath (mild) and + other (dizzy, "loopy", diarrhea, never seen healthcare insurance sales agent); no chest pain and no syncope Treatments prior to arrival: none The patient is a 68 year old female who presents to the ED with complaints of an episode of nausea that started 3 hours ago. The patient states that she felt fine this morning, until she got to her appointment to get bilateral knee shots. The patient stated that she became nauseated, dizzy and loopy just before her shots, but decided to get the shots anyway. The patient states that her doctor recommended her to come to the ED but she went home instead. The patient states that when she got home, she started having diarrhea and diaphoresis. The patient states that she decided to come to the ED after this. The patient states that she is mildly short of breath. The patient denies chest pain and feelings of syncope. The patient notes that she has never seen a healthcare insurance sales agent. The patient denies taking any medication prior to arrival. Home Medications Home Medications Medication Instructions Recorded Confirmed Type atenolol 12.5 mg PO DAILY 05/02/19 05/02/19 History furosemide 40 mg PO DAILY 05/02/19 05/02/19 History gabapentin 300 mg PO UD 05/02/19 05/02/19 History glimepiride 2 mg PO QPM 05/02/19 05/02/19 History glimepiride 4 mg PO QAM 05/02/19 05/02/19 History levothyroxine 150 mcg PO DAILY 05/02/19 05/02/19 History lisinopril 10 mg PO DAILY 05/02/19 05/02/19 History metformin 1,000 mg PO QPM 05/02/19 05/02/19 History metformin 500 mg PO QAM 05/02/19 05/02/19 History potassium chloride 10 meq PO BID 05/02/19 05/02/19 History simvastatin 40 mg PO HS 05/02/19 05/02/19 History venlafaxine 75 mg PO DAILY 05/02/19 05/02/19 History zolpidem 10 mg PO HS 05/02/19 05/02/19 History Allergies Allergy/AdvReac Type Severity Reaction Status Date / Time No Known Allergies Allergy NKA Verified 12/23/14 23:07 Past Med/Surg History Medical History Diabetes (Acute) Hypertension (Chronic) Hypercholesteremia (Chronic) Breast cancer (Resolved) s/p lumpectomy Benign brain tumor (Chronic) meningioma Hypothyroid Surgical History History of cholecystectomy (Resolved) History of carpal tunnel surgery History of dilation and curettage History of lumpectomy History of parathyroid surgery Family History Father Pacemaker Social History Preferred Language: Persian Communication Ability: Effective 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 and A total of 10 systems reviewed and were otherwise negative Physical Exam Vital Signs Vital Signs - 24 hr 05/02/19 16:44 05/02/19 17:14 05/02/19 17:20 Temperature 36.3 C L Temperature Source Oral Sepsis Recent Fever Within 48 Hours No Sepsis New/Unexplained Change in Mental Status No Sepsis Action Taken by Nursing No Action Required Oxygen Flow Rate - Titration Pulse Oximetry Post Tiitration Pulse Rate 31 L Pulse Rate [Apical] 32 L Respiratory Rate 22 22 Respiratory Effort / Characteristics Non-Labored Spontaneous Respiratory Depth Normal Respiratory Pattern Regular Blood Pressure 119/50 L Blood Pressure [Right Calf] 133/52 L Blood Pressure Mean 73 Blood Pressure Mean [Right Calf] 79 Blood Pressure Position Sitting Pulse Oximetry 93 95 Oxygen Delivery Method Room Air Nasal Cannula Oxygen Flow Rate 4 Fraction of Inspired Oxygen 05/02/19 17:27 05/02/19 17:45 Temperature Temperature Source Sepsis Recent Fever Within 48 Hours Sepsis New/Unexplained Change in Mental Status Sepsis Action Taken by Nursing Oxygen Flow Rate - Titration 3 Pulse Oximetry Post Tiitration 92 Pulse Rate Pulse Rate [Apical] Respiratory Rate Respiratory Effort / Characteristics Respiratory Depth Respiratory Pattern Blood Pressure Blood Pressure [Right Calf] Blood Pressure Mean Blood Pressure Mean [Right Calf] Blood Pressure Position Pulse Oximetry Oxygen Delivery Method Room Air Nasal Cannula Nasal Cannula Oxygen Flow Rate 4 Fraction of Inspired Oxygen 89 GENERAL: Distressed. Vomiting. EYES: Conjunctivae and EOM are normal. Pupils are equal, round, and reactive to light. Right eye exhibits no discharge. Left eye exhibits no discharge. No scleral icterus. NECK: Supple. CV: Bradycardic rate, regular rhythm, normal heart sounds and intact distal pulses. 1+ bilateral lower extremity pitting edema. Palpable radial pulses bue. PULM/CHEST: Effort normal and breath sounds normal. No respiratory distress. No stridor. She has no wheezes. She has no rales. Chest Wall: She exhibits no tenderness. ABD: The abdomen is soft. Nontender. MUSC/SKEL: Normal range of motion. There is no peripheral edema, tenderness or deformity. LYMPH: No cervical adenopathy. NEURO: Motor and sensation grossly intact. SKIN: Skin is warm and dry. She is not diaphoretic. PSYCH: She has a normal mood and affect. Her behavior is normal. Judgment and thought content normal. Course 165: Past medical records reviewed. The patient was evaluated in room B12. On the quality assurance monitor final it appeared that the patient was in a bradycardic rhythm. Patient was moved to the resuscitation bay and B1. EKG was performed which showed a complete heart block. Repeat EKG showed complete heart block. Blood pressure was very difficult to obtain. Automatic readings were unobtainable. A manual blood pressure was 92 over palpation. I discussed the patient's case with Dr. Lantigua and he recommends calling out a heart alert so the patient can be evaluated for a temporary pacemaker. Pads were applied to the patient's anterior chest. He recommends giving atropine and dopamine. 1724: S/P atropine 0.5 mg IV push and dopamine 5 mcg/min, patient's manual blood pressure is 112/palp and her automated blood pressure is 153/52 on right lower extremity. Given she is responding to the medications we will be holding off on transcutaneous pacing as of now. Patient continues to maintain her mental status well and reports no chest pain or difficulty breathing. 1729: Dr. Lantigua is at bedside evaluating patient. 1731: The patient's ISTAT shows potassium of 5. We are giving the patient Calcium gluconate 1 g IV push. 1748: Dr. Lantigua- Cardiology, [facility] will evaluate take the patient for a transvenous pacemaker to be placed. Consultations Consultation #1: I discussed the patient's case with Dr. Lantigua and he recommends calling out a heart alert. He recommends giving atropine and dopamine . Time: 17:13 Consultation #2: Dr. Lantigua- Cardiology, [facility] will evaluate the patient for further management. Time: 17:48 Administered Medications Magnesium Sulfate/Dextrose (Magnesium Sulfate / D5w) 1 gm in 100 mls @ 100 mls/hr IV Q1H SUNITHA Stop: 05/02/19 22:29 Last Admin: 05/02/19 21:27 Dose: 100 mls/hr Documented by: [id number] Simvastatin (Zocor) 40 mg PO HS SUNITHA Stop: 06/01/19 20:59 Last Admin: 05/02/19 21:28 Dose: 40 mg Documented by: [id number] Discontinued Medications Atropine Sulfate (Atropine Sulfate 1mg/Ml) Confirm Administered Dose 1 mg .ROUTE .STK-MED ONE Stop: 05/02/19 17:18 Last Admin: 05/02/19 17:18 Dose: 0.5 mg Documented by: [id number] Calcium Gluconate (Calcium Gluconate 10%) Confirm Administered Dose 1,000 mg IV .STK-MED ONE Stop: 05/02/19 17:33 Last Admin: 05/02/19 17:36 Dose: 1,000 mg Documented by: [id number] Dopamine HCl/Dextrose (Dopamine / D5w) Confirm Administered Dose 400 mg IV .STK- MED ONE Stop: 05/02/19 17:18 Last Admin: 05/02/19 17:22 Dose: 5 mcg.per.kg Documented by: [id number] Fentanyl Citrate (Fentanyl Citrate) Confirm Administered Dose 100 mcg .ROUTE .STK-MED ONE Stop: 05/02/19 17:35 Last Increment: 05/02/19 18:32 Dose: 25 mcg Documented by: [id number] Heparin Sodium (Porcine) (Heparin Iv Bolus (Handle Lathe Operator Use Only)) Confirm Administered Dose 10,000 units .ROUTE .STK-MED ONE Stop: 05/02/19 17:35 Last Admin: 05/02/19 19:11 Dose: Not Given Documented by: [id number] Heparin Sodium/Sodium Chloride (Heparin/Nss 1000 Unit/500ml Flush Bag) Confirm Administered Dose 3,000 units IV .STK-MED ONE Stop: 05/02/19 17:36 Last Admin: 05/02/19 19:11 Dose: Not Given Documented by: [id number] Midazolam HCl (Versed) Confirm Administered Dose 2 mg .ROUTE .STK-MED ONE Stop: 05/02/19 17:35 Last Increment: 05/02/19 18:32 Dose: 1 mg Documented by: [id number] Miscellaneous () Confirm Administered Dose 1 ea .ROUTE .STK-MED ONE Stop: 05/02/19 17:26 Last Admin: 05/02/19 18:00 Dose: Not Given Documented by: [id number] Nicardipine HCl (Cardene) Confirm Administered Dose 25 mg .ROUTE .STK-MED ONE Stop: 05/02/19 17:35 Last Admin: 05/02/19 19:11 Dose: Not Given Documented by: [id number] Nitroglycerin/Dextrose (Nitroglycerin/D5w 100 Mcg/Ml 20ml Syringe) Confirm A dministered Dose 2,000 mcg .ROUTE .STK-MED ONE Stop: 05/02/19 17:36 Last Admin: 05/02/19 19:11 Dose: Not Given Documented by: [id number] Ondansetron HCl (Zofran) Confirm Administered Dose 4 mg .ROUTE .STK-MED ONE Stop: 05/02/19 17:40 Last Admin: 05/02/19 17:42 Dose: 4 mg Documented by: [id number] Medical Decision Making Medical Records Attestation: I reviewed the patient's medical records. Home Medications Current Medication List: was personally reviewed by ok Laboratory Data Attestation: I reviewed the patient's lab results. Result diagrams: 05/02/19 17:10 05/02/19 17:10 Lab Results 05/02/19 05/02/19 05/02/19 Range/Units 17:10 17:10 17:10 WBC 8.90 (4.8-10.8) K/uL RBC 4.17 L (4.2-5.4) M/uL Hgb 13.8 (12.0-16.0) g/dL POC Hgb 13.3 (12.0-16.0) g/dl Hct 40.1 (37-47) % POC Hct 39 (37-47) % MCV 96.2 (80-100) fL MCH 33.1 (25-34) pg MCHC 34.4 (32-36) g/dL RDW Std Deviation 47.0 H (36.4-46.3) fL RDW Coeff of Edy 13.4 (11.5-14.5) % Plt Count 198 (130-400) K/uL MPV 9.1 (7.4-10.4) fL Immature Gran % (Auto) 0.2 % Neut % (Auto) 79.7 % Lymph % (Auto) 13.9 % Butts % (Auto) 5.5 % Eos % (Auto) 0.6 % Baso % (Auto) 0.1 % Immature Gran # (Auto) 0.02 (0.00-0.02) K/uL Neut # (Auto) 7.09 H (1.4-6.5) K/uL Lymph # (Auto) 1.24 (1.2-3.4) K/uL Butts # (Auto) 0.49 (0.11-0.59) K/uL Eos # (Auto) 0.05 (0-0.5) K/uL Baso # (Auto) 0.01 (0-0.2) K/uL POC Sodium 138 (135-144) mEq/L Sodium 138 (136-145) mmol/L POC Potassium 5.0 (3.3-5.0) mEq/L Potassium 4.7 (3.5-5.1) mmol/L POC Chloride 101 (101-112) mEq/L Chloride 104 (98-107) mmol/L Carbon Dioxide 25 (21-32) mmol/L POC Total CO2 29 (24-31) mEq/l Anion Gap 9.0 (3-11) POC Anion Gap 15.0 L (16-25) mmol/L POC BUN 17 (7-18) mg/dl BUN 15 (7-18) mg/dl Creatinine 0.98 (0.6-1.2) mg/dl POC Creatinine 0.9 (0.6-1.3) mg/dl Est Cr Clr Drug Dosing 62.2 ml/min Est GFR ( Amer) 68.7 Est GFR (Non-Af Amer) 59.3 BUN/Creatinine Ratio 15.3 (10-20) Glucose 236 H (70-99) mg/dl POC Glucose (70-99) POC Glucose (other) 245 H (70-99) mg/dl Calcium 8.7 (8.5-10.1) mg/dl POC Ioniz Calcium Berna 0.97 L (1.12-1.32) mmol/l Magnesium 1.6 L (1.8-2.4) mg/dl POC Troponin I (0-0.045) ng/ml Troponin I < 0.015 (0-0.045) ng/ml Lipase 106 (73-393) U/L 05/02/19 05/02/19 Range/Units 17:16 17:37 WBC (4.8-10.8) K/uL RBC (4.2-5.4) M/uL Hgb (12.0-16.0) g/dL POC Hgb (12.0-16.0) g/dl Hct (37-47) % POC Hct (37-47) % MCV (80-100) fL MCH (25-34) pg MCHC (32-36) g/dL RDW Std Deviation (36.4-46.3) fL RDW Coeff of Edy (11.5-14.5) % Plt Count (130-400) K/uL MPV (7.4-10.4) fL Immature Gran % (Auto) % Neut % (Auto) % Lymph % (Auto) % Butts % (Auto) % Eos % (Auto) % Baso % (Auto) % Immature Gran # (Auto) (0.00-0.02) K/uL Neut # (Auto) (1.4-6.5) K/uL Lymph # (Auto) (1.2-3.4) K/uL Butts # (Auto) (0.11-0.59) K/uL Eos # (Auto) (0-0.5) K/uL Baso # (Auto) (0-0.2) K/uL POC Sodium (135-144) mEq/L Sodium (136-145) mmol/L POC Potassium (3.3-5.0) mEq/L Potassium (3.5-5.1) mmol/L POC Chloride (101-112) mEq/L Chloride (98-107) mmol/L Carbon Dioxide (21-32) mmol/L POC Total CO2 (24-31) mEq/l Anion Gap (3-11) POC Anion Gap (16-25) mmol/L POC BUN (7-18) mg/dl BUN (7-18) mg/dl Creatinine (0.6-1.2) mg/dl POC Creatinine (0.6-1.3) mg/dl Est Cr Clr Drug Dosing ml/min Est GFR ( Amer) Est GFR (Non-Af Amer) BUN/Creatinine Ratio (10-20) Glucose (70-99) mg/dl POC Glucose 222 H (70-99) POC Glucose (other) (70-99) mg/dl Calcium (8.5-10.1) mg/dl POC Ioniz Calcium Berna (1.12-1.32) mmol/l Magnesium (1.8-2.4) mg/dl POC Troponin I < 0.03 (0-0.045) ng/ml Troponin I (0-0.045) ng/ml Lipase (73-393) U/L Imaging Data Radiologist's Impression: Radiology results as stated below per my review and the radiologist's interpretation: XR chest 1V portable CLINICAL HISTORY: 68 years-old Female presenting with Chest Pain. TECHNIQUE: Portable semiupright AP view of the chest was obtained. Pulmonary vascular prominence. COMPARISON: 12/23/2014. FINDINGS: Atherosclerosis of the aortic arch. Cardiac silhouette enlarged. Pulmonary vascular prominence. No focal opacity. No large effusion or pneumothorax. Osseous structures normal. . External leads project over the right upper quadrant and thorax. IMPRESSION: 1. Cardiomegaly with mild volume overload. No advanced congestive change. No. Pulmonary edema. Electronically signed by: Garry Guillen M.D. 05/02/2019 5:29 PM ECG Data Attestation: I personally reviewed and interpreted this ECG as follows: Indication: bradycardia Rate (beats per minute): 30 Rhythm: other (N/A) Findings: + other (QRS, QTC within normal limits) and + complete heart block; no ST depression and no ST elevation Additional Comments: SECOND EKG Rate: 30 Rhythm: N/A Findings: Complete heart block, QRS 126, QTC 513, no ST elevation, no ST depression Blood Pressure Blood Pressure Findings: Low blood pressure Blood Pressure Disposition: further management by hospitalist MANDI Narrative [id number]: Past medical records reviewed. The patient was evaluated in room B12. On the quality assurance monitor final it appeared that the patient was in a bradycardic rhythm. Patient was moved to the resuscitation bay and B1. EKG was performed which showed a complete heart block. Repeat EKG showed complete heart block. Blood pressure was very difficult to obtain. Automatic readings were unobtainable. A manual blood pressure was 92 over palpation. I discussed the patient's case with Dr. Lantigua and he recommends calling out a heart alert so the patient can be evaluated for a temporary pacemaker. Pads were applied to the patient's anterior chest. He recommends giving atropine and dopamine. 1724: S/P atropine 0.5 mg IV push and dopamine 5 mcg/min, patient's manual blood pressure is 112/palp and her automated blood pressure is 153/52 on right lower extremity. Given she is responding to the medications we will be holding off on transcutaneous pacing as of now. Patient continues to maintain her mental status well and reports no chest pain or difficulty breathing. 1729: Dr. Lantigua is at bedside evaluating patient. 1731: The patient's ISTAT shows potassium of 5. We are giving the patient Calcium gluconate 1 g IV push. 1748: Dr. Lantigua- Cardiology, [facility] [place] will evaluate take the patient for a transvenous pacemaker to be placed. Impression & Plan Heart block AV complete Critical Care Time Critical Care Time: Yes Total Critical Care Time: 50 I have personally spent 50 minutes of critical care time in the direct management of this patient. This includes bedside care, interpretation of di agnostic studies, and testing, discussion with consultants, patient, and family members, and other required patient management activities. This 50 minutes is in excess of all separately billable procedures. Discharge Plan Visit Data *Final* Discharge Date/Time: 05/02/19 17:45 Chief Complaint: Shortness of Breath/Dyspnea Stated Complaint: HARD BREATHING ED Provider: Ruben Shaw Discharge Problem: Heart block AV complete Patient Disposition: Admitted As Inpatient Discharge Instructions Interventions: ED Discharge Assessment Last Done: 05/02/19 17:45 The scribe's documentation has been prepared under my direction and personally reviewed by me in its entirety. I confirm that the note above accurately reflects all work, treatment, procedures, and medical decision making performed by me.
[2019-05-02] MEDS: ZOLPIDEM TARTRATE 10 MG TAB PO SCH (22:34)
[2019-05-03 04:37] LABS: Basophils # (auto) 0.02 K/uL (0-0.2); Basophils % (auto) 0.2 %; Eosinophils # (auto) 0.01 K/uL (0-0.5); Eosinophils % (auto) 0.1 %; Hematocrit (blood only) 35.9 % (37-47); Hemoglobin 12.4 g/dL (12.0-16.0); Immature Granulocytes # (auto) 0.03 K/uL (0.00-0.02); Immature Granulocytes % (auto) 0.4 %; Lymphocytes # (auto) 1.11 K/uL (1.2-3.4); Lymphocytes % (auto) 13.3 %; Mean Corpuscular Hemoglobin 32.5 pg (25-34); Mean Corpuscular Hgb Conc 34.5 g/dL (32-36); Mean Corpuscular Volume 94.2 fL (80-100); Mean Platelet Volume 8.8 fL (7.4-10.4); Monocytes # (auto) 0.41 K/uL (0.11-0.59); Monocytes % (auto) 4.9 %; Neutrophils # (auto) 6.76 K/uL (1.4-6.5); Neutrophils % (auto) 81.1 %; Platelet Count 177 K/uL (130-400); RDW Coefficient of Variation 13.2 % (11.5-14.5); RDW Standard Deviation 45.2 fL (36.4-46.3); Red Blood Count 3.81 M/uL (4.2-5.4); White Blood Count 8.34 K/uL (4.8-10.8)
[2019-05-03 05:01] LABS: Calcium 8.4 mg/dl (8.5-10.1); Creatinine Clr Calc Pharmacy 84.1 ml/min; Est GFR (African American) 98.1; Est GFR (Non-African American) 84.6; Potassium 4.3 mmol/L (3.5-5.1)
[2019-05-03 05:12] LABS: Phosphorus 4.1 mg/dl (2.5-4.9); T4 Free Thyroxine 1.13 ng/dl (0.8-1.6); Thyroid Stimulating Hormone 0.175 uIu/ml (0.300-4.500)
[2019-05-03 05:28] LABS: Lyme Ab IgM w/WB Rflx Negative (Negative)
[2019-05-03 05:29] LABS: Lyme Ab IgG w/WB Rflx Negative (Negative)
[2019-05-03 06:00] LABS: Estimated Average Glucose 146 mg/dl; Hemoglobin A1C 6.7 % (4.5-5.6)
[2019-05-03] MEDS: LEVOTHYROXINE SODIUM 150 MCG TABLET PO SCH (06:03)
[2019-05-03] MEDS ORDERED: ICU MODERATE HYPERGLYCEMIA PROTOCOL ONE (06:31)
[2019-05-03] MEDS ORDERED: DEXTROSE 50% 50 ML SYRINGE IV PRN (06:45)
[2019-05-03] MEDS ORDERED: GLUCOSE 40% GEL 15 GM TUBE PO PRN (06:45)
[2019-05-03] MEDS ORDERED: GLUCAGON FOR INJ 1 MG VIAL SQ PRN (06:45)
[2019-05-03] MEDS ORDERED: INSULIN GLARGINE SOLOSTAR 100 UNITS/ML 3 ML PEN SC ONE (06:45)
[2019-05-03] MEDS ORDERED: CARBOHYDRATES FOR HYPOGLYCEMIA PO PRN (06:45)
[2019-05-03] MEDS ORDERED: GLUCOSE 10 TABS/TUBE PO PRN (06:45)
[2019-05-03] MEDS ORDERED: PHARMACY GLYCEMIC MGMT CONSULT PRN (07:24)
[2019-05-03] MEDS: INSULIN ASPART 100 UNITS/ML 3 ML PEN SC SCH ×3 (07:44→20:30)
--- NOTE | 2019-05-03 07:55 | Critical Care Progress Note ---
Date of Service May 03, 2019 Assessment & Plan (1) Admitted to intensive care unit: Reason Critically Ill: 68-year-old female with idioventricular rhythm progressing to complete heart block requiring emergent placement of RIGHT-sided internal jugular transvenous pacemaker requiring close hemodynamic monitoring status post intervention. Plan for perm pacemaker today. NEURO - CAM ICU: NEGATIVE Depression: Continue home medications CARDIAC/VASCULAR - Complete heart block: Currently with capture utilizing transvenous pacemaker. Monitor closely for any dislodgment or changes in rhythm. Plan for permanent pacemaker placement today in OR. Lyme studies pending Monitor on telemetry. RESPIRATORY - Saturating well on room air. GI/NUTRITION - N.p.o. for planned procedure today RENAL/LYTES - No significant electrolyte derangements. - No concerns at this time. ENDO - DMII- BSGs per unit protocol. ISS --> gtt per unit policy. Hypothyroidism- TSH low .175/Free T4 WNL 1.13, however w/ the absence of other worrisome s/s, would be unlikely contributor. HEME - Stable H&H ID - No concerns for infection at this time. LINES/IV ACCESS -PIVs x2, RIGHT IJ Transvenous Pacemaker DVT PROPHYLAXIS -Will defer to cardiology, SCDs FULL CODE DISPO: Stable for downgrade out of ICU s/p pacemaker insertion. Supervising Physician Co-Signing Physician Notes Dr. Hernadez was resident physician during care of patient. I separately evaluated patient for cano portions of the history and the exam. I was present during the critical portion of medical decision making, and I discussed the case with the resident. I generally agree with the findings and plan. Patient was discussed in multidisciplinary rounds. Patient has temporary pacemaker placed, going for formal pacemaker today, at that time she would be stable for downgrade out of the ICU. Lyme negative. Subjective 68 yo F found in bed this AM in NAD. No reported overnight events. Ok to proceed with pacemaker sx today. No other acute concerns or complaints. Review of Systems Review of Systems: All systems reviewed & are unremarkable except as noted in HPI & below Physical Exam Constitutional: + obese Eyes: PERRL, conjunctivae normal, anicteric sclerae ENMT: external ear and nose normal, oropharynx normal Neck: temporary R IJ pacer Incision C/D/I Respiratory: normal respiratory effort, lungs clear to auscultation Cardiovascular: RRR, no murmur, no edema Gastrointestinal (Abdomen): normal bowel sounds, soft, nontender, no hepatosplenomegaly Skin: no rashes, warm and dry Psychiatric: A+Ox3, euthymic affect Results & Data Vital Signs (Past 12 Hours) Vital Signs Temp Pulse Pulse Resp BP BP Pulse Ox 05/03/19 06:00 68 22 120/51 L 96 05/03/19 05:00 69 19 115/50 L 97 05/03/19 04:30 68 23 91 05/03/19 04:00 36.9 C 70 14 90 05/03/19 03:30 69 16 93 05/03/19 03:17 69 17 119/59 L 94 05/03/19 03:00 70 16 94 05/03/19 02:50 72 16 95 05/03/19 02:00 72 24 92 05/03/19 01:30 74 16 95 05/03/19 01:00 72 17 95 05/03/19 00:30 76 23 88 L 05/03/19 00:00 76 17 89 L 05/02/19 23:50 75 05/02/19 23:32 36.9 C 76 20 111/63 90 05/02/19 23:30 76 18 90 05/02/19 23:00 77 32 H 91 05/02/19 22:30 78 21 91 05/02/19 22:10 79 22 90 05/02/19 22:00 80 21 91 05/02/19 21:50 80 21 91 05/02/19 21:41 82 23 132/64 91 05/02/19 21:40 81 14 92 05/02/19 21:30 80 21 91 05/02/19 21:20 83 22 91 05/02/19 21:00 84 24 92 05/02/19 20:30 83 22 92 05/02/19 20:00 84 24 92 Laboratory Results Laboratory Results - last 24 hr 05/02/19 05/02/19 05/02/19 17:10 17:10 17:10 WBC 8.90 RBC 4.17 L Hgb 13.8 POC Hgb 13.3 Hct 40.1 POC Hct 39 MCV 96.2 MCH 33.1 MCHC 34.4 RDW Std Deviation 47.0 H RDW Coeff of Edy 13.4 Plt Count 198 MPV 9.1 Immature Gran % (Auto) 0.2 Neut % (Auto) 79.7 Lymph % (Auto) 13.9 Park % (Auto) 5.5 Eos % (Auto) 0.6 Baso % (Auto) 0.1 Immature Gran # (Auto) 0.02 Neut # (Auto) 7.09 H Lymph # (Auto) 1.24 Park # (Auto) 0.49 Eos # (Auto) 0.05 Baso # (Auto) 0.01 POC Sodium 138 Sodium 138 POC Potassium 5.0 Potassium 4.7 POC Chloride 101 Chloride 104 Carbon Dioxide 25 POC Total CO2 29 Anion Gap 9.0 POC Anion Gap 15.0 L POC BUN 17 BUN 15 Creatinine 0.98 POC Creatinine 0.9 Est Cr Clr Drug Dosing 62.2 Est GFR ( Amer) 68.7 Est GFR (Non-Af Amer) 59.3 BUN/Creatinine Ratio 15.3 Glucose 236 H POC Glucose POC Glucose (other) 245 H Estimat Average Glucose Hemoglobin A1c Calcium 8.7 POC Ioniz Calcium Berna 0.97 L Ionized Calcium Phosphorus Magnesium 1.6 L POC Troponin I Troponin I < 0.015 Lipase 106 TSH Free T4 Nasal Screen MRSA (PCR) Lyme Disease IgG Ab Lyme Disease IgM Ab Hepatitis C Ab Screen 05/02/19 05/02/19 05/02/19 17:16 17:37 19:00 WBC RBC Hgb POC Hgb Hct POC Hct MCV MCH MCHC RDW Std Deviation RDW Coeff of Edy Plt Count MPV Immature Gran % (Auto) Neut % (Auto) Lymph % (Auto) Park % (Auto) Eos % (Auto) Baso % (Auto) Immature Gran # (Auto) Neut # (Auto) Lymph # (Auto) Park # (Auto) Eos # (Auto) Baso # (Auto) POC Sodium Sodium POC Potassium Potassium POC Chloride Chloride Carbon Dioxide POC Total CO2 Anion Gap POC Anion Gap POC BUN BUN Creatinine POC Creatinine Est Cr Clr Drug Dosing Est GFR ( Amer) Est GFR (Non-Af Amer) BUN/Creatinine Ratio Glucose POC Glucose 222 H POC Glucose (other) Estimat Average Glucose Hemoglobin A1c Calcium POC Ioniz Calcium Berna Ionized Calcium Phosphorus Magnesium POC Troponin I < 0.03 Troponin I Lipase TSH Free T4 Nasal Screen MRSA (PCR) Negative Lyme Disease IgG Ab Lyme Disease IgM Ab Hepatitis C Ab Screen 05/02/19 05/03/19 05/03/19 20:29 03:52 03:52 WBC 8.34 RBC 3.81 L Hgb 12.4 POC Hgb Hct 35.9 L POC Hct MCV 94.2 MCH 32.5 MCHC 34.5 RDW Std Deviation 45.2 RDW Coeff of Edy 13.2 Plt Count 177 MPV 8.8 Immature Gran % (Auto) 0.4 Neut % (Auto) 81.1 Lymph % (Auto) 13.3 Park % (Auto) 4.9 Eos % (Auto) 0.1 Baso % (Auto) 0.2 Immature Gran # (Auto) 0.03 H Neut # (Auto) 6.76 H Lymph # (Auto) 1.11 L Park # (Auto) 0.41 Eos # (Auto) 0.01 Baso # (Auto) 0.02 POC Sodium Sodium POC Potassium Potassium POC Chloride Chloride Carbon Dioxide POC Total CO2 Anion Gap POC Anion Gap POC BUN BUN Creatinine POC Creatinine Est Cr Clr Drug Dosing Est GFR ( Amer) Est GFR (Non-Af Amer) BUN/Creatinine Ratio Glucose POC Glucose 183 H POC Glucose (other) Estimat Average Glucose 146 Hemoglobin A1c 6.7 H Calcium POC Ioniz Calcium Berna Ionized Calcium Phosphorus Magnesium POC Troponin I Troponin I Lipase TSH Free T4 Nasal Screen MRSA (PCR) Lyme Disease IgG Ab Lyme Disease IgM Ab Hepatitis C Ab Screen 05/03/19 05/03/19 05/03/19 03:52 03:52 03:52 WBC RBC Hgb POC Hgb Hct POC Hct MCV MCH MCHC RDW Std Deviation RDW Coeff of Edy Plt Count MPV Immature Gran % (Auto) Neut % (Auto) Lymph % (Auto) Park % (Auto) Eos % (Auto) Baso % (Auto) Immature Gran # (Auto) Neut # (Auto) Lymph # (Auto) Park # (Auto) Eos # (Auto) Baso # (Auto) POC Sodium Sodium 138 POC Potassium Potassium 4.3 POC Chloride Chloride 103 Carbon Dioxide 29 POC Total CO2 Anion Gap 6.0 POC Anion Gap POC BUN BUN 17 Creatinine 0.73 POC Creatinine Est Cr Clr Drug Dosing 84.1 Est GFR ( Amer) 98.1 Est GFR (Non-Af Amer) 84.6 BUN/Creatinine Ratio 23.0 H Glucose 154 H POC Glucose POC Glucose (other) Estimat Average Glucose Hemoglobin A1c Calcium 8.4 L POC Ioniz Calcium Berna Ionized Calcium Phosphorus 4.1 Magnesium 2.0 POC Troponin I Troponin I Lipase TSH 0.175 L Free T4 1.13 Nasal Screen MRSA (PCR) Lyme Disease IgG Ab Negative Lyme Disease IgM Ab Negative Hepatitis C Ab Screen Neg 05/03/19 05/03/19 03:52 06:04 WBC RBC Hgb POC Hgb Hct POC Hct MCV MCH MCHC RDW Std Deviation RDW Coeff of Edy Plt Count MPV Immature Gran % (Auto) Neut % (Auto) Lymph % (Auto) Park % (Auto) Eos % (Auto) Baso % (Auto) Immature Gran # (Auto) Neut # (Auto) Lymph # (Auto) Park # (Auto) Eos # (Auto) Baso # (Auto) POC Sodium Sodium POC Potassium Potassium POC Chloride Chloride Carbon Dioxide POC Total CO2 Anion Gap POC Anion Gap POC BUN BUN Creatinine POC Creatinine Est Cr Clr Drug Dosing Est GFR ( Amer) Est GFR (Non-Af Amer) BUN/Creatinine Ratio Glucose POC Glucose 162 H POC Glucose (other) Estimat Average Glucose Hemoglobin A1c Calcium POC Ioniz Calcium Berna Ionized Calcium 1.08 L Phosphorus Magnesium POC Troponin I Troponin I Lipase TSH Free T4 Nasal Screen MRSA (PCR) Lyme Disease IgG Ab Lyme Disease IgM Ab Hepatitis C Ab Screen Medications Administered Current Inpatient Medications Acetaminophen (Tylenol) 650 mg PO Q4H PRN PRN Reason: Mild pain (rating 1,2,3) Stop: 06/02/19 11:19 Dextrose (Dextrose 50%) 25 - 50 ml IV UD PRN; Protocol PRN Reason: Hypoglycemia Protocol Stop: 06/02/19 06:44 Docusate Sodium (Colace) 100 mg PO BID PRN PRN Reason: Constipation Stop: 06/01/19 19:57 Gabapentin (Neurontin) 300 mg PO TID [facility] Stop: 06/02/19 08:59 Last Admin: 05/03/19 09:29 Dose: 300 mg Documented by: Glucagon (Glucagen) 1 mg SQ UD PRN; Protocol PRN Reason: Hypoglycemia Protocol Stop: 06/02/19 06:44 Glucose (Glucose 40%) 15 - 30 gm PO UD PRN; Protocol PRN Reason: Hypoglycemia Protocol Stop: 06/02/19 06:44 Glucose (Dex4 Glucose) 4 - 8 tabs PO UD PRN; Protocol PRN Reason: Hypoglycemia Protocol Stop: 06/02/19 06:44 Cefazolin Sodium (Ancef 1000mg) 1,000 mg in 7.5 mls @ 2.5 mls/min IV Q8H [facility]; Protocol Stop: 05/04/19 18:29 Insulin Aspart (Novolog Flexpen) 0 units SC Q6 [facility] Stop: 06/02/19 06:44 Last Admin: 05/03/19 07:44 Dose: Not Given Documented by: Insulin Glargine (Lantus Solostar Pen) 20 units SC BID [facility] Stop: 06/03/19 08:59 Levothyroxine Sodium (Synthroid) 150 mcg PO DAILYBB [facility] Stop: 06/02/19 06:29 Last Admin: 05/03/19 06:03 Dose: 150 mcg Documented by: Miscellaneous (Carbohydrates For Hypoglycemia) 15 - 30 gm PO UD PRN PRN Reason: Hypoglycemia Treatment Stop: 06/02/19 06:44 Miscellaneous Information (Consult Glycemic Management Pharmacy) 1 ea N/A UD PRN PRN Reason: Consult Stop: 06/02/19 07:23 Oxycodone HCl (Roxicodone Immediate Rel) 5 mg PO Q6 PRN PRN Reason: Pain Stop: 05/17/19 11:19 Simvastatin (Zocor) 40 mg PO HS [facility] Stop: 06/01/19 20:59 Last Admin: 05/02/19 21:28 Dose: 40 mg Documented by: Venlafaxine HCl (Effexor Extended Release) 75 mg PO DAILY [facility] Stop: 06/02/19 08:59 Last Admin: 05/03/19 08:47 Dose: 75 mg Documented by: Zolpidem Tartrate (Ambien) 10 mg PO HS [facility] Stop: 06/01/19 20:59 Last Admin: 05/02/19 22:34 Dose: 10 mg Documented by: PG Care Time/CCT Total # of Minutes Spent Total Time Spent with Patient: Total time spent is greater than 50% in coordination of care (as documented) at patient's floor/unit and/or counseling patient: Resident Activity Tracking Resident Involvement: Resident Care Provided Care Provided: Adult Hospital Medicine
[2019-05-03] MEDS: VENLAFAXINE HCL XR 75 MG CAPXR PO SCH (08:47)
[2019-05-03] MEDS ORDERED: PERFLUTREN LIPID MICROSPHERE (DEFINITY) IV ONE (08:47)
[2019-05-03] MEDS ORDERED: INSULIN GLARGINE SOLOSTAR 100 UNITS/ML 3 ML PEN SC SCH (09:00)
[2019-05-03] MEDS: GABAPENTIN 300 MG CAP PO SCH ×3 (09:29→20:29)
--- NOTE | 2019-05-03 09:50 | Pre Anesthesia Assessment ---
Date of Service May 03, 2019 Pre Sedation Assessment Vital Signs Temp Pulse Pulse Resp BP BP BP 05/03/19 09:00 69 68 16 05/03/19 08:45 69 19 05/03/19 08:30 68 20 05/03/19 08:15 67 18 05/03/19 08:00 37.0 C 67 68 26 H 120/55 L 05/03/19 07:45 68 18 05/03/19 07:30 70 17 05/03/19 07:15 70 18 05/03/19 07:00 67 23 05/03/19 06:00 68 22 120/51 L 05/03/19 05:00 69 19 115/50 L 05/03/19 04:30 68 23 05/03/19 04:00 36.9 C 70 14 05/03/19 03:30 69 16 05/03/19 03:17 69 17 119/59 L 05/03/19 03:00 70 16 05/03/19 02:50 72 16 05/03/19 02:00 72 24 05/03/19 01:30 74 16 05/03/19 01:00 72 17 05/03/19 00:30 76 23 05/03/19 00:00 76 17 05/02/19 23:50 75 05/02/19 23:32 36.9 C 76 20 111/63 05/02/19 23:30 76 18 05/02/19 23:00 77 32 H 05/02/19 22:30 78 21 05/02/19 22:10 79 22 05/02/19 22:00 80 21 05/02/19 21:50 80 21 05/02/19 21:41 82 23 132/64 05/02/19 21:40 81 14 05/02/19 21:30 80 21 05/02/19 21:20 83 22 05/02/19 21:00 84 24 05/02/19 20:30 83 22 05/02/19 20:00 84 24 05/02/19 19:50 84 31 H 05/02/19 19:40 86 18 05/02/19 19:30 36.7 C 86 95 H 18 138/60 05/02/19 19:20 86 23 05/02/19 19:10 89 05/02/19 19:00 36.8 C 87 05/02/19 18:50 87 05/02/19 17:20 32 L 22 133/52 L 05/02/19 16:44 36.3 C L 31 L 22 119/50 L Pulse Ox 05/03/19 09:00 95 05/03/19 08:45 95 05/03/19 08:30 95 05/03/19 08:15 95 05/03/19 08:00 94 05/03/19 07:45 95 05/03/19 07:30 95 05/03/19 07:15 95 05/03/19 07:00 95 05/03/19 06:00 96 05/03/19 05:00 97 05/03/19 04:30 91 05/03/19 04:00 90 05/03/19 03:30 93 05/03/19 03:17 94 05/03/19 03:00 94 05/03/19 02:50 95 05/03/19 02:00 92 05/03/19 01:30 95 05/03/19 01:00 95 05/03/19 00:30 88 L 05/03/19 00:00 89 L 05/02/19 23:50 05/02/19 23:32 90 05/02/19 23:30 90 05/02/19 23:00 91 05/02/19 22:30 91 05/02/19 22:10 90 05/02/19 22:00 91 05/02/19 21:50 91 05/02/19 21:41 91 05/02/19 21:40 92 05/02/19 21:30 91 05/02/19 21:20 91 05/02/19 21:00 92 05/02/19 20:30 92 05/02/19 20:00 92 05/02/19 19:50 92 05/02/19 19:40 92 05/02/19 19:30 91 05/02/19 19:20 92 05/02/19 19:10 94 05/02/19 19:00 95 05/02/19 18:50 93 05/02/19 17:20 95 05/02/19 16:44 93 Cardiovascular + regular rate Respiratory + respiratory effort normal Pre-Sedation Airway Assessment Smoking Status: Never smoker Hx Sleep Apnea: No Hx Difficult Intubation: No Short, Thick Neck: No Thyromental Distance: < 3.5 Finger Breadths Oral Cavity: + WNL Mallampati Class: III ASA: ASA3 Procedure Planning Contraindications for Sedation: none Current Medications Reviewed: Yes Notes The planned sedation has been discussed with the patient. Informed Consent was obtained. I have identified the patient, determined the appropriateness of sedation and have assessed the patient immediately prior to the procedure. All medicine(s) and interventions are by my order.
[2019-05-03] MEDS ORDERED: LIDOCAINE HCL 1% 20 ML VIAL ONE (09:54)
[2019-05-03] MEDS ORDERED: BUPIVACAINE 0.25% 30 ML VIAL ONE (09:54)
[2019-05-03] MEDS ORDERED: BACITRACIN INJ 50,000 UNIT VIAL ONE (09:54)
[2019-05-03] MEDS ORDERED: CEFAZOLIN 250 MG/ML 1 GM VIAL ONE (09:56)
[2019-05-03] MEDS ORDERED: MIDAZOLAM HCL 5 MG/ML 1 ML VIAL ONE (09:56)
[2019-05-03] MEDS ORDERED: fentaNYL citrate 100 MCG/2 ML VIAL ONE (09:56)
--- NOTE | 2019-05-03 10:13 | Cardiology Consultation ---
Date of Consultation May 03, 2019 Assessment & Plan (1) Heart block AV complete: The patient presented with complete heart block. Her baseline EKG also revealed a right bundle branch block. This was suggest an element of occult conduction system disease more likely to be infra-Hisian then related to the AV node. Curiously, her conduction returned shortly after placement of her transvenous pacemaker. She is not appear to have been exposed to Lyme disease. She is on a very low-dose of beta-benjamín which is unlikely to cause the conduction disturbances noted. She is not appear to have any other proximate cause for this difficulty and it is likely related to progressive conduction disease. Despite being a diabetic and having other risk factors for coronary disease, she has preserved LV systolic function and there was no objective evidence of ischemia involved in yesterday's events. In the absence of a reversible cause I did suggest implantation of a permanent pacemaker. I did describe the risks benefits and alternatives. Unfortunately, this likely represents some instability in her conduction system and with the absence of a pacemaker she is likely have recurrent symptoms. She was agreeable will plan on proceeding today. (2) Valvular heart disease: She has mild aortic insufficiency. This can be monitored over time. Preserved LV systolic function and chamber dimensions. History of Present Illness Reason for Consultation: Heart block Requesting Physician: Joseline Attending Physician: Tuan Trevizo History of Present Illness The patient is a 60-year-old woman without a known history of cardiac disease who presented to the [facility] with symptoms of profound dizziness and weakness. Patient states the symptoms started fairly acutely around 1:00 p.m. yesterday. She presented to have her knees injected at her orthopedic surgeon's office and began experience the aforementioned symptoms. These symptoms were not necessarily positional. She was also notably short of breath and had an element of exercise intolerance. She stated she felt weird in did have some difficulty characterizing this further. She did not endorse symptoms of presyncope. She has no symptoms of chest discomfort. She is not aware of palpitations. Upon presentation to our [facility] she was discovered to have bradycardia and evidence of complete heart block. Due to her symptoms and some hemodynamic instability she did undergo implantation of a temporary transvenous pacemaker. This morning she is feeling better. She states that her breathing is fine. She is no longer dizzy. She has no sense of palpitation or chest pain. In general she is a sedentary individual who is limited primarily by orthopedic disease. However, she is able ambulate around large department stores and go to appointments without other symptoms such as exertional dyspnea or any symptoms of chest discomfort. She does not endorse common symptoms of dizziness or lightheadedness. She cannot recall ever having another syncopal episode. Allergies Allergy/AdvReac Type Severity Reaction Status Date / Time No Known Allergies Allergy NKA Verified 12/23/14 23:07 Home Medications Home Medications Medication Instructions Recorded Confirmed Type atenolol 12.5 mg PO DAILY 05/02/19 05/02/19 History furosemide 40 mg PO DAILY 05/02/19 05/02/19 History gabapentin 300 mg PO TID 05/02/19 05/03/19 History glimepiride 2 mg PO QPM 05/02/19 05/02/19 History glimepiride 4 mg PO QAM 05/02/19 05/02/19 History levothyroxine 150 mcg PO DAILY 05/02/19 05/02/19 History lisinopril 10 mg PO DAILY 05/02/19 05/02/19 History metformin 1,000 mg PO QPM 05/02/19 05/02/19 History metformin 500 mg PO QAM 05/02/19 05/02/19 History potassium chloride 10 meq PO BID 05/02/19 05/02/19 History simvastatin 40 mg PO HS 05/02/19 05/02/19 History venlafaxine 75 mg PO DAILY 05/02/19 05/02/19 History zolpidem 10 mg PO HS 05/02/19 05/02/19 History Patient History Medical History Diabetes (Acute) Hypertension (Chronic) Hypercholesteremia (Chronic) Breast cancer (Resolved) s/p lumpectomy Benign brain tumor (Chronic) meningioma Hypothyroid Surgical History History of cholecystectomy (Resolved) History of carpal tunnel surgery History of dilation and curettage History of lumpectomy History of parathyroid surgery Family History Father Pacemaker Social History Preferred Language: [place] Communication Ability: Effective Oxyacetylene Welder Required: No Beliefs That Will Affect Care: None Current Living Situation: Spouse Other Information That Helps Us Care for You: No Feels Safe at Home: Yes Safety Concerns: Feels Safe At This Time Smoking Status: Never smoker Do You Dip or Chew Tobacco: No ; Second Hand Exposure: No ; Tobacco Cessation Education Requested by Patient: No Hx Alcohol Use: No Hx Substance Use: No Review of Systems Review of Systems: All systems reviewed & are unremarkable except as noted in HPI & below No recent constitutional symptoms such as fevers or chills. No upper respiratory illnesses. No unusual rashes. Some continued discomfort in her back and knees. She does sleep in a recliner due to back discomfort. She has not endorse orthopnea or paroxysmal nocturnal dyspnea. She denies any swelling in her lower extremities. Physical Exam Physical Exam: She is alert and oriented x3. Mood affect appear normal. She answered all questions appropriately. HEENT: Sclerae are anicteric. Pupils are equal and reactive to light and accommodation. Extraocular movements were intact. Neuro: Cranial nerves intact Neck: Examination of the submandibular region did not reveal any significant lymphadenopathy. Carotids are palpable bilaterally and free of bruits on auscultation. There was no evidence of jugular venous distention. The thyroid was not enlarged. Transvenous pacemaker placed in the right internal jugular vein. Lungs: Lungs are clear to auscultation bilaterally. There are no rales wheezes or rhonchi. She has normal respiratory effort without use of accessory muscles. There is normal pulmonary excursion. Cardiac: The rhythm was regular. S1 and S2 were normal. There are no murmurs on examination. The PMI was not markedly displaced on palpation. Abdomen: The abdomen was soft and nontender. Extremities: Patient has bilateral radial pulses that are equal in intensity. There is no evidence cyanosis or clubbing. There was no evidence of significant peripheral edema bilaterally. Skin: There are no rashes noted on examination today. Results & Data Vital Signs (Past 12 Hours) Vital Signs Temp Pulse Pulse Resp BP BP Pulse Ox 05/03/19 09:00 69 68 16 95 05/03/19 08:45 69 19 95 05/03/19 08:30 68 20 95 05/03/19 08:15 67 18 95 05/03/19 08:00 37.0 C 67 68 26 H 120/55 L 94 05/03/19 07:45 68 18 95 05/03/19 07:30 70 17 95 05/03/19 07:15 70 18 95 05/03/19 07:00 67 23 95 05/03/19 06:00 68 22 120/51 L 96 05/03/19 05:00 69 19 115/50 L 97 05/03/19 04:30 68 23 91 05/03/19 04:00 36.9 C 70 14 90 05/03/19 03:30 69 16 93 05/03/19 03:17 69 17 119/59 L 94 05/03/19 03:00 70 16 94 05/03/19 02:50 72 16 95 05/03/19 02:00 72 24 92 05/03/19 01:30 74 16 95 05/03/19 01:00 72 17 95 05/03/19 00:30 76 23 88 L 05/03/19 00:00 76 17 89 L 05/02/19 23:50 75 05/02/19 23:32 36.9 C 76 20 111/63 90 05/02/19 23:30 76 18 90 05/02/19 23:00 77 32 H 91 05/02/19 22:30 78 21 91 05/02/19 22:10 79 22 90 Laboratory Results Abnormal Lab Results 05/02/19 05/02/19 05/02/19 17:10 17:10 17:10 WBC 8.90 RBC 4.17 L Hgb 13.8 POC Hgb 13.3 Hct 40.1 POC Hct 39 MCV 96.2 MCH 33.1 MCHC 34.4 RDW Std Deviation 47.0 H RDW Coeff of Edy 13.4 Plt Count 198 MPV 9.1 Immature Gran % (Auto) 0.2 Neut % (Auto) 79.7 Lymph % (Auto) 13.9 Cotton % (Auto) 5.5 Eos % (Auto) 0.6 Baso % (Auto) 0.1 Immature Gran # (Auto) 0.02 Neut # (Auto) 7.09 H Lymph # (Auto) 1.24 Cotton # (Auto) 0.49 Eos # (Auto) 0.05 Baso # (Auto) 0.01 POC Sodium 138 Sodium 138 POC Potassium 5.0 Potassium 4.7 POC Chloride 101 Chloride 104 Carbon Dioxide 25 POC Total CO2 29 Anion Gap 9.0 POC Anion Gap 15.0 L POC BUN 17 BUN 15 Creatinine 0.98 POC Creatinine 0.9 Est Cr Clr Drug Dosing 62.2 Est GFR ( Amer) 68.7 Est GFR (Non-Af Amer) 59.3 BUN/Creatinine Ratio 15.3 Glucose 236 H POC Glucose POC Glucose (other) 245 H Estimat Average Glucose Hemoglobin A1c Calcium 8.7 POC Ioniz Calcium Berna 0.97 L Ionized Calcium Phosphorus Magnesium 1.6 L POC Troponin I Troponin I < 0.015 Lipase 106 TSH Free T4 Nasal Screen MRSA (PCR) Lyme Disease IgG Ab Lyme Disease IgM Ab Hepatitis C Ab Screen 05/02/19 05/02/19 05/02/19 17:16 17:37 19:00 WBC RBC Hgb POC Hgb Hct POC Hct MCV MCH MCHC RDW Std Deviation RDW Coeff of Edy Plt Count MPV Immature Gran % (Auto) Neut % (Auto) Lymph % (Auto) Cotton % (Auto) Eos % (Auto) Baso % (Auto) Immature Gran # (Auto) Neut # (Auto) Lymph # (Auto) Cotton # (Auto) Eos # (Auto) Baso # (Auto) POC Sodium Sodium POC Potassium Potassium POC Chloride Chloride Carbon Dioxide POC Total CO2 Anion Gap POC Anion Gap POC BUN BUN Creatinine POC Creatinine Est Cr Clr Drug Dosing Est GFR ( Amer) Est GFR (Non-Af Amer) BUN/Creatinine Ratio Glucose POC Glucose 222 H POC Glucose (other) Estimat Average Glucose Hemoglobin A1c Calcium POC Ioniz Calcium Berna Ionized Calcium Phosphorus Magnesium POC Troponin I < 0.03 Troponin I Lipase TSH Free T4 Nasal Screen MRSA (PCR) Negative Lyme Disease IgG Ab Lyme Disease IgM Ab Hepatitis C Ab Screen 05/02/19 05/03/19 05/03/19 20:29 03:52 03:52 WBC 8.34 RBC 3.81 L Hgb 12.4 POC Hgb Hct 35.9 L POC Hct MCV 94.2 MCH 32.5 MCHC 34.5 RDW Std Deviation 45.2 RDW Coeff of Edy 13.2 Plt Count 177 MPV 8.8 Immature Gran % (Auto) 0.4 Neut % (Auto) 81.1 Lymph % (Auto) 13.3 Cotton % (Auto) 4.9 Eos % (Auto) 0.1 Baso % (Auto) 0.2 Immature Gran # (Auto) 0.03 H Neut # (Auto) 6.76 H Lymph # (Auto) 1.11 L Cotton # (Auto) 0.41 Eos # (Auto) 0.01 Baso # (Auto) 0.02 POC Sodium Sodium POC Potassium Potassium POC Chloride Chloride Carbon Dioxide POC Total CO2 Anion Gap POC Anion Gap POC BUN BUN Creatinine POC Creatinine Est Cr Clr Drug Dosing Est GFR ( Amer) Est GFR (Non-Af Amer) BUN/Creatinine Ratio Glucose POC Glucose 183 H POC Glucose (other) Estimat Average Glucose 146 Hemoglobin A1c 6.7 H Calcium POC Ioniz Calcium Berna Ionized Calcium Phosphorus Magnesium POC Troponin I Troponin I Lipase TSH Free T4 Nasal Screen MRSA (PCR) Lyme Disease IgG Ab Lyme Disease IgM Ab Hepatitis C Ab Screen 05/03/19 05/03/19 05/03/19 03:52 03:52 03:52 WBC RBC Hgb POC Hgb Hct POC Hct MCV MCH MCHC RDW Std Deviation RDW Coeff of Edy Plt Count MPV Immature Gran % (Auto) Neut % (Auto) Lymph % (Auto) Cotton % (Auto) Eos % (Auto) Baso % (Auto) Immature Gran # (Auto) Neut # (Auto) Lymph # (Auto) Cotton # (Auto) Eos # (Auto) Baso # (Auto) POC Sodium Sodium 138 POC Potassium Potassium 4.3 POC Chloride Chloride 103 Carbon Dioxide 29 POC Total CO2 Anion Gap 6.0 POC Anion Gap POC BUN BUN 17 Creatinine 0.73 POC Creatinine Est Cr Clr Drug Dosing 84.1 Est GFR ( Amer) 98.1 Est GFR (Non-Af Amer) 84.6 BUN/Creatinine Ratio 23.0 H Glucose 154 H POC Glucose POC Glucose (other) Estimat Average Glucose Hemoglobin A1c Calcium 8.4 L POC Ioniz Calcium Berna Ionized Calcium Phosphorus 4.1 Magnesium 2.0 POC Troponin I Troponin I Lipase TSH 0.175 L Free T4 1.13 Nasal Screen MRSA (PCR) Lyme Disease IgG Ab Negative Lyme Disease IgM Ab Negative Hepatitis C Ab Screen Neg 05/03/19 05/03/19 03:52 06:04 WBC RBC Hgb POC Hgb Hct POC Hct MCV MCH MCHC RDW Std Deviation RDW Coeff of Edy Plt Count MPV Immature Gran % (Auto) Neut % (Auto) Lymph % (Auto) Cotton % (Auto) Eos % (Auto) Baso % (Auto) Immature Gran # (Auto) Neut # (Auto) Lymph # (Auto) Cotton # (Auto) Eos # (Auto) Baso # (Auto) POC Sodium Sodium POC Potassium Potassium POC Chloride Chloride Carbon Dioxide POC Total CO2 Anion Gap POC Anion Gap POC BUN BUN Creatinine POC Creatinine Est Cr Clr Drug Dosing Est GFR ( Amer) Est GFR (Non-Af Amer) BUN/Creatinine Ratio Glucose POC Glucose 162 H POC Glucose (other) Estimat Average Glucose Hemoglobin A1c Calcium POC Ioniz Calcium Berna Ionized Calcium 1.08 L Phosphorus Magnesium POC Troponin I Troponin I Lipase TSH Free T4 Nasal Screen MRSA (PCR) Lyme Disease IgG Ab Lyme Disease IgM Ab Hepatitis C Ab Screen Diagnostic Findings Chest x-ray obtained at the time of admission not really significant cardiopulmonary disease. Echocardiogram performed today revealed preserved LV systolic function with mild aortic regurgitation. Stage I diastolic dysfunction ECG Additional Comments: EKG obtained at time admission revealed normal sinus rhythm with complete heart block and right bundle branch block PG Care Time/CCT Total # of Minutes Spent Total Time Spent with Patient: Total time spent is greater than 50% in coordination of care (as documented) at patient's floor/unit and/or counseling patient:
[2019-05-03] MEDS ORDERED: ACETAMINOPHEN 325 MG TAB PO PRN (11:20)
[2019-05-03] MEDS ORDERED: OXYCODONE HCL IR 5 MG TAB (IMMEDIATE RELEASE) PO PRN (11:20)
--- NOTE | 2019-05-03 11:20 | Procedure Note ---
Procedure Note Date of Service May 03, 2019 Note Procedure performed: Implantation of dual-chamber permanent pacemaker Staff drive in waiter/waitress: Boris Rodriguez MD Indication: The patient is a 60-year-old woman who presented to our facility with complete heart block and symptomatic bradycardia. She is advised to consider undergoing a permanent pacemaker due to symptomatic nonreversible AV node dysfunction. A dual-chamber device was selected she is currently in sinus rhythm and wished to maintain AV synchrony. Procedure in detail: The patient was informed of the risks benefits and alternatives to the intended procedure and she wished to proceed. She was taken to the electrophysiology suite in a fasting state. A preoperative antibiotic had been administered. The patient was monitored electrocardiographically throughout today's procedure and conscious sedation was administered per protocol. The left upper pectoral area is prepped and draped in usual sterile fashion. This area was anesthetized using subcutaneous administration of a xylocaine solution. An incision was made at this site and carried down to the prepectoralis fascia using sharp dissection. Electrocautery was also employed for dissection as well as for hemostasis. A device pocket was fashioned tissues above the pectoralis muscle. Subsequent to this maneuver the left axillary vein was accessed using modified Seldinger technique. Sheaths were placed over guidewires at this site and used to fa cilitate passage of the pacing leads to the respective chambers under fluoroscopic guidance. This included right atrial and right ventricular leads. Adequate sensing and threshold parameters were obtained prior to Active fixation of the leads to the endocardial surface. The proximal portion leads were then sutured the prepectoral fascia using nonabsorbable suture. The device pocket was irrigated with antibiotic solution. The leads were then attached to the device. The device and leads were then placed in the pocket and pocket was closed in 3 layers of absorbable suture. Steri-Strips and sterile dressing were applied. The device was tested noninvasively prior to conclusion the procedure. The patient tolerated procedure well there no immediate complications. Equipment used: New pulse generator: Model [employer]. Model number: [id number] serial number [id number] Right atrial lead: Model [employer]. Model number: 5076 serial number [id number] Right ventricular lead: Model [employer]. Model number: [id number] serial number [id number] Measured data: Right atrial lead: P waves measure 3.4 mV. Pacing threshold 0.5 V 0.4 ms with a pacing impedance of 437 ohms Right ventricular lead: R waves measured 6 mV. Pacing threshold 0.5 V 0.4 ms with a pacing impedance of 684 ohms Impression: Successful implantation of dual-chamber permanent pacemaker Coding
--- NOTE | 2019-05-03 11:23 | Post Anesthesia Assessment ---
Date of Service May 03, 2019 Post Sedation Assessment Vital Signs Temp Pulse Pulse Resp BP BP BP 05/03/19 10:00 71 18 05/03/19 09:45 66 17 05/03/19 09:30 66 25 H 05/03/19 09:15 67 25 H 05/03/19 09:00 69 68 16 05/03/19 08:45 69 19 05/03/19 08:30 68 20 05/03/19 08:15 67 18 05/03/19 08:00 37.0 C 67 68 26 H 120/55 L 05/03/19 07:45 68 18 05/03/19 07:30 70 17 05/03/19 07:15 70 18 05/03/19 07:00 67 23 05/03/19 06:00 68 22 120/51 L 05/03/19 05:00 69 19 115/50 L 05/03/19 04:30 68 23 05/03/19 04:00 36.9 C 70 14 05/03/19 03:30 69 16 05/03/19 03:17 69 17 119/59 L 05/03/19 03:00 70 16 05/03/19 02:50 72 16 05/03/19 02:00 72 24 05/03/19 01:30 74 16 05/03/19 01:00 72 17 05/03/19 00:30 76 23 05/03/19 00:00 76 17 05/02/19 23:50 75 05/02/19 23:32 36.9 C 76 20 111/63 05/02/19 23:30 76 18 05/02/19 23:00 77 32 H 05/02/19 22:30 78 21 05/02/19 22:10 79 22 05/02/19 22:00 80 21 05/02/19 21:50 80 21 05/02/19 21:41 82 23 132/64 05/02/19 21:40 81 14 05/02/19 21:30 80 21 05/02/19 21:20 83 22 05/02/19 21:00 84 24 05/02/19 20:30 83 22 05/02/19 20:00 84 24 05/02/19 19:50 84 31 H 05/02/19 19:40 86 18 05/02/19 19:30 36.7 C 86 95 H 18 138/60 05/02/19 19:20 86 23 05/02/19 19:10 89 05/02/19 19:00 36.8 C 87 05/02/19 18:50 87 05/02/19 17:20 32 L 22 133/52 L 05/02/19 16:44 36.3 C L 31 L 22 119/50 L Pulse Ox 05/03/19 10:00 96 05/03/19 09:45 95 05/03/19 09:30 95 05/03/19 09:15 95 05/03/19 09:00 95 05/03/19 08:45 95 05/03/19 08:30 95 05/03/19 08:15 95 05/03/19 08:00 94 05/03/19 07:45 95 05/03/19 07:30 95 05/03/19 07:15 95 05/03/19 07:00 95 05/03/19 06:00 96 05/03/19 05:00 97 05/03/19 04:30 91 05/03/19 04:00 90 05/03/19 03:30 93 05/03/19 03:17 94 05/03/19 03:00 94 05/03/19 02:50 95 05/03/19 02:00 92 05/03/19 01:30 95 05/03/19 01:00 95 05/03/19 00:30 88 L 05/03/19 00:00 89 L 05/02/19 23:50 05/02/19 23:32 90 05/02/19 23:30 90 05/02/19 23:00 91 05/02/19 22:30 91 05/02/19 22:10 90 05/02/19 22:00 91 05/02/19 21:50 91 05/02/19 21:41 91 05/02/19 21:40 92 05/02/19 21:30 91 05/02/19 21:20 91 05/02/19 21:00 92 05/02/19 20:30 92 05/02/19 20:00 92 05/02/19 19:50 92 05/02/19 19:40 92 05/02/19 19:30 91 05/02/19 19:20 92 05/02/19 19:10 94 05/02/19 19:00 95 05/02/19 18:50 93 05/02/19 17:20 95 05/02/19 16:44 93 Recovery Score Activity: Moves 4 extremities Respiration: Deep Breath/Cough Circulation: +/-20% PreAnes Value Consciousness: Fully Awake Oxygen Saturation: > 92% On Room Air Post Sedation Plan On clinical assessment, the patient appears to have tolerated the sedation without complications. Patient is recovering as anticipated. Patient will continue to be monitored by nursing and may be discharged when sedation discharge criteria are met per below protocol. Upon Completions of procedure and additional 15 minutes continue every 5 minute vital signs and the P.A.R. score; then discharge to a Phase I or Fast Track to Phase II per the following guidelines: * Discharge Patient to appropriate Phase II area if PAR is 8 or greater or return to pre- procedure baseline. The post - procedure orders will be as directed. * If PAR score is less than 8 or not return to pre-procedure baseline then patient will follow Phase I monitoring till PAR is reached for Phase II. The Phase I may be done in procedure room or may call to secure a Phase I area. * If naloxone or flumazenil are used for reversal, hold in Phase I for continued monitoring from when last reversal dose was given for a minimum of 60 minutes or longer pending the nurse and/or physician discretion of patient condition before discharge to Phase II. Please call the Sedation Physician to re-evaluate and complete post-note for discharge to Phase II area. Do NOT discharge from procedure sedation or Phase 1 until post- sedation evaluation note is complete by procedure /sedation MD Sedation Discharge Instructions to be given to the patient at discharge to home.
--- NOTE | 2019-05-03 15:47 | Pharmacy Report ---
Pharmacy Glycemic Short Note 2 - Date of Service May 03, 2019 - Glycemic Short BSG Results (Last 24 hours): 05/02/19 05/02/19 05/02/19 17:10 17:10 17:16 Glucose 236 H POC Glucose 222 H POC Glucose (other) 245 H 05/02/19 05/03/19 05/03/19 20:29 03:52 06:04 Glucose 154 H POC Glucose 183 H 162 H POC Glucose (other) 05/03/19 11:52 Glucose POC Glucose 130 H POC Glucose (other) OUTPATIENT ANTIDIABETIC REGIMEN: * Glimepiride 4mg AM + 2mg PM * Metformin 500mg AM + 1000mg PM * A1c = 6.7% 05/03/19 ASSESSMENT: * Type 2 diabetic admitted w/ symptomatic bradycardia found to have CHB * Pt was given Lantus + Novolog per ICU protocol, weight-based dose using "moderate stress" level. She received the full 24 hr dose of Lantus this AM * Will continue the Novolog CF and CR as ordered * Will need to watch for falling BSGs this afternoon if NPO status maintained post-op. Will resume Lantus tomorrow AM in split dose PLAN FOR INPATIENT GLYCEMIC CONTROL: * Hold outpatient oral diabetes medications (metformin + glimepiride) * Basal insulin * Lantus 15 units SQ BID * Bolus insulin * NovoLog per scale ACHS or Q6hrs while NPO * Goal Range: Low 110 mg/dL - High 140 mg/dL * Correction Factor: 20 mg/dL/unit * Nutritional / Prandial insulin per carb ratio of 1 unit per 7 grams CHO consumed PLAN FOR DISCHARGE: * given A1c result less than 7%, would recommend continuing outpt regimen on discharge
[2019-05-03] MEDS ORDERED: INSULIN ASPART 100 UNITS/ML 3 ML PEN SC ONE (18:00)
[2019-05-03] MEDS: CEFAZOLIN 2000MG 2,000 MG/15 ML SYR IV SCH (18:06)
--- NOTE | 2019-05-03 19:45 | Hospitalist Progress Note ---
Date of Service May 03, 2019 Assessment & Plan (1) Heart block AV complete: s/p permanent pacemaker placement today by Dr Rodriguez. no apparent immediate post-op complications. NSR on monitor during my visit. cxr in AM per Dr Rodriguez. left arm precautions. ok to d/c ICU statu -- move to telemetry unit. Lymes noted to be negative. echo with preserved EF. TSH largely normal. (ie - no severe hypothyroidism) (2) Hypertension: Multiple meds on hold. BPs stable w/o such. Likely resume meds tomorrow. (3) Hypercholesteremia: Continue Simvastatin (4) Diabetes: Hold Metformin and Glimepiride while inpatient Pharmacy glycemic team managing Control adequate (5) Hypothyroid: TSH minimally depressed but would not change dose for now cont synthroid repeat TSH as outpt in 4-6 weeks to ensure stability (6) Depression: Chronic. Stable Continue Venlafaxine (7) Morbid obesity with BMI of 50.0-59.9, adult: BMI 50 (8) Chronic low back pain: cont gabapentin ok to mobilize and get OOB to chair tonight PT eval in am to ensure stable from physical standpoint to d/c home family updated d/c ICU status -- move to tele Subjective saw patient in ICU before transfer to [facility] tele. resting comfortably. numerous family at bedside. only complaint is back pain- this is chronic for "years"- takes gabapentin for such. NO CHANGE in the location, character or intensity of her chronic pain. no cp, no dyspnea. usually does not use O2 at home. had pacer placed today - since returning to ICU she has been in NSR w/o pacing. temporary pacer has been d/c and a-line also has been removed. Review of Systems Constitutional: no fatigue and no anorexia Respiratory: no cough and no dyspnea Cardiovascular: no chest pain Gastrointestinal: no abdominal pain Physical Exam Constitutional: + morbidly obese; no acute distress and no altered mental status ENMT: external ear and nose normal, oropharynx normal Respiratory: normal respiratory effort, lungs clear to auscultation Cardiovascular: Rate/Rhythm: regular rate and regular rhythm Heart Sounds: normal S1 and normal S2; no murmur Vessels: posterior tibial pulses present and dorsalis pedis pulses present; no JVD Extremities: no edema Chest (Breasts): Additional Comments: pacer site left upper chest clean; dressing intact Gastrointestinal (Abdomen): normal bowel sounds, soft, nontender, no hepatosplenomegaly Psychiatric: A+Ox3, euthymic affect Results & Data Vital Signs (Past 12 Hours) Vital Signs Temp Pulse Pulse Resp BP Pulse Ox 05/03/19 18:04 74 05/03/19 17:00 75 20 97 05/03/19 16:00 73 21 98 05/03/19 15:40 73 18 96 05/03/19 15:30 72 14 98 05/03/19 15:20 69 15 97 05/03/19 15:10 72 21 96 05/03/19 15:00 70 23 97 05/03/19 14:50 70 16 97 05/03/19 14:40 72 19 94 05/03/19 14:30 71 16 95 05/03/19 14:20 75 22 95 05/03/19 14:10 74 17 96 05/03/19 14:00 70 16 97 05/03/19 13:50 68 16 96 05/03/19 13:40 69 15 97 05/03/19 13:30 70 14 96 05/03/19 13:20 72 23 96 05/03/19 13:10 67 17 95 05/03/19 13:00 67 14 97 05/03/19 12:50 66 13 97 05/03/19 12:40 65 17 96 05/03/19 12:30 66 17 97 05/03/19 12:00 36.9 C 05/03/19 11:20 36.9 C 05/03/19 10:00 71 18 96 05/03/19 09:45 66 17 95 05/03/19 09:30 66 25 H 95 05/03/19 09:15 67 25 H 95 05/03/19 09:00 69 68 16 95 05/03/19 08:45 69 19 95 05/03/19 08:30 68 20 95 05/03/19 08:15 67 18 95 05/03/19 08:00 37.0 C 67 68 26 H 120/55 L 94 05/03/19 07:45 68 18 95 Laboratory Results Laboratory Results - last 24 hr 05/02/19 05/02/19 05/03/19 19:00 20:29 03:52 WBC RBC Hgb Hct MCV MCH MCHC RDW Std Deviation RDW Coeff of Edy Plt Count MPV Immature Gran % (Auto) Neut % (Auto) Lymph % (Auto) [place] % (Auto) Eos % (Auto) Baso % (Auto) Immature Gran # (Auto) Neut # (Auto) Lymph # (Auto) [place] # (Auto) Eos # (Auto) Baso # (Auto) Sodium Potassium Chloride Carbon Dioxide Anion Gap BUN Creatinine Est Cr Clr Drug Dosing Est GFR ( Amer) Est GFR (Non-Af Amer) BUN/Creatinine Ratio Glucose POC Glucose 183 H Estimat Average Glucose 146 Hemoglobin A1c 6.7 H Calcium Ionized Calcium Phosphorus Magnesium TSH Free T4 Nasal Screen MRSA (PCR) Negative Lyme Disease IgG Ab Lyme Disease IgM Ab Hepatitis C Ab Screen 05/03/19 05/03/19 05/03/19 03:52 03:52 03:52 WBC 8.34 RBC 3.81 L Hgb 12.4 Hct 35.9 L MCV 94.2 MCH 32.5 MCHC 34.5 RDW Std Deviation 45.2 RDW Coeff of Edy 13.2 Plt Count 177 MPV 8.8 Immature Gran % (Auto) 0.4 Neut % (Auto) 81.1 Lymph % (Auto) 13.3 [place] % (Auto) 4.9 Eos % (Auto) 0.1 Baso % (Auto) 0.2 Immature Gran # (Auto) 0.03 H Neut # (Auto) 6.76 H Lymph # (Auto) 1.11 L [place] # (Auto) 0.41 Eos # (Auto) 0.01 Baso # (Auto) 0.02 Sodium 138 Potassium 4.3 Chloride 103 Carbon Dioxide 29 Anion Gap 6.0 BUN 17 Creatinine 0.73 Est Cr Clr Drug Dosing 84.1 Est GFR ( Amer) 98.1 Est GFR (Non-Af Amer) 84.6 BUN/Creatinine Ratio 23.0 H Glucose 154 H POC Glucose Estimat Average Glucose Hemoglobin A1c Calcium 8.4 L Ionized Calcium Phosphorus 4.1 Magnesium 2.0 TSH 0.175 L Free T4 1.13 Nasal Screen MRSA (PCR) Lyme Disease IgG Ab Negative Lyme Disease IgM Ab Negative Hepatitis C Ab Screen 05/03/19 05/03/19 05/03/19 03:52 03:52 06:04 WBC RBC Hgb Hct MCV MCH MCHC RDW Std Deviation RDW Coeff of Edy Plt Count MPV Immature Gran % (Auto) Neut % (Auto) Lymph % (Auto) [place] % (Auto) Eos % (Auto) Baso % (Auto) Immature Gran # (Auto) Neut # (Auto) Lymph # (Auto) [place] # (Auto) Eos # (Auto) Baso # (Auto) Sodium Potassium Chloride Carbon Dioxide Anion Gap BUN Creatinine Est Cr Clr Drug Dosing Est GFR ( Amer) Est GFR (Non-Af Amer) BUN/Creatinine Ratio Glucose POC Glucose 162 H Estimat Average Glucose Hemoglobin A1c Calcium Ionized Calcium 1.08 L Phosphorus Magnesium TSH Free T4 Nasal Screen MRSA (PCR) Lyme Disease IgG Ab Lyme Disease IgM Ab Hepatitis C Ab Screen Neg 05/03/19 05/03/19 05/03/19 11:52 17:03 17:46 WBC RBC Hgb Hct MCV MCH MCHC RDW Std Deviation RDW Coeff of Edy Plt Count MPV Immature Gran % (Auto) Neut % (Auto) Lymph % (Auto) [place] % (Auto) Eos % (Auto) Baso % (Auto) Immature Gran # (Auto) Neut # (Auto) Lymph # (Auto) [place] # (Auto) Eos # (Auto) Baso # (Auto) Sodium Potassium Chloride Carbon Dioxide Anion Gap BUN Creatinine Est Cr Clr Drug Dosing Est GFR ( Amer) Est GFR (Non-Af Amer) BUN/Creatinine Ratio Glucose POC Glucose 130 H 127 H 162 H Estimat Average Glucose Hemoglobin A1c Calcium Ionized Calcium Phosphorus Magnesium TSH Free T4 Nasal Screen MRSA (PCR) Lyme Disease IgG Ab Lyme Disease IgM Ab Hepatitis C Ab Screen PG Care Time/CCT Total # of Minutes Spent Total Time Spent with Patient: Total time spent is greater than 50% in coordination of care (as documented) at patient's floor/unit and/or counseling patient: (1) Diabetes Diabetes mellitus complication status: without complication 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: without penitentiary use Diabetes mellitus type: type 2 Qualified Code(s): E11.9 - Type 2 diabetes mellitus without complications (2) Depression Active/Remission status: remission status unspecified Depression Type: major depressive disorder Major depression recurrence: recurrent Qualified Code(s): F33.9 - Major depressive disorder, recurrent, unspecified (3) Hypothyroid Hypothyroidism type: unspecified Qualified Code(s): E03.9 - Hypothyroidism, unspecified (4) Hypertension Hypertension type: essential hypertension Qualified Code(s): I10 - Essential (primary) hypertension (5) Chronic low back pain Back pain laterality: unspecified Sciatica presence: unspecified whether sciatica present Qualified Code(s): M54.5 - Low back pain; G89.29 - Other chronic pain
[2019-05-03] MEDS: SIMVASTATIN 40 MG TAB PO SCH (20:29)
[2019-05-03] MEDS: ZOLPIDEM TARTRATE 10 MG TAB PO SCH (22:47)
[2019-05-04] MEDS: CEFAZOLIN 2000MG 2,000 MG/15 ML SYR IV SCH ×2 (03:22→10:32)
[2019-05-04] MEDS: LEVOTHYROXINE SODIUM 150 MCG TABLET PO SCH (06:17)
--- NOTE | 2019-05-04 07:43 | XRay Report ---
XR chest 2V PA/lateral CLINICAL HISTORY: 68 years-old Female presenting with EXACT TIME ORDERED Evaluate for pneumothorax an iwona cannon TECHNIQUE: PA and lateral views of the chest were obtained. COMPARISON: 05/02/2019. FINDINGS: Interval placement of a left subclavian pacer with leads to the right atrium and right ventricular ap ex. Atherosclerosis of the aortic arch. Cardiac silhouette mildly enlarged. Decreased pulmonary vascu lar prominence. Lungs are mildly hyperinflated though the appearance may be due to slight exaggeratio n of normal thoracic kyphosis. No focal opacity. No pleural effusion or pneumothorax. Degenerative ch anges of the thoracic spine. Upper abdomen normal. IMPRESSION: 1. Appropriately positioned left subclavian 2-lead pacer. No pneumothorax. Electronically signed by: Garry Guillen M.D. 05/04/2019 7:41 AM
[2019-05-04] MEDS: VENLAFAXINE HCL XR 75 MG CAPXR PO SCH (08:46)
[2019-05-04] MEDS: GABAPENTIN 300 MG CAP PO SCH (08:47)
[2019-05-04] MEDS: INSULIN ASPART 100 UNITS/ML 3 ML PEN SC SCH ×2 (08:49→11:54)
[2019-05-04] MEDS ORDERED: INSULIN GLARGINE SOLOSTAR 100 UNITS/ML 3 ML PEN SC SCH ×2 (09:00)
--- NOTE | 2019-05-04 10:24 | Cardiology Progress Note ---
Date of Service May 04, 2019 Assessment & Plan (1) Heart block AV complete: The etiology of her heart block was unclear. Likely related to age related degeneration. She underwent successful implantation of a dual-chamber permanent pacemaker yesterday. No evident complication. She can certainly be discharged home from our standpoint. She should keep the wound dry and a Steri- Strip intact for period of 1 week. She has refrain from lifting left arm above the shoulder behind the neck for 6 weeks. I will arrange for her to have follow-up in our clinic next week for wound evaluation. (2) Valvular heart disease: She has mild aortic insufficiency. This can be monitored over time. Preserved LV systolic function and chamber dimensions. Subjective This morning patient clearly feeling well. She does report some moderate discomfort at the device implant site in left upper pectoral area. No other complaints. Review of Systems Review of Systems: Per HPI Physical Exam Physical Exam: Examination the device implant site reveals only mild ecchymosis. No drainage. No hematoma. Erythema associated with the adhesive. Results & Data Vital Signs (Past 12 Hours) Vital Signs Temp Pulse Resp BP Pulse Ox 05/04/19 09:42 70 05/04/19 07:08 36.6 C 68 20 130/75 92 05/04/19 03:50 36.7 C 75 22 151/82 H 96 05/04/19 00:00 71 Laboratory Results Abnormal Lab Results 05/03/19 05/03/19 05/03/19 11:52 17:03 17:46 POC Glucose 130 H 127 H 162 H 05/03/19 05/04/19 20:37 07:48 POC Glucose 84 152 H Diagnostic Findings Chest x-ray demonstrates good lead position without evidence of pneumothorax I performed a complete device interrogation which reveals good sensing threshold parameters on both leads. Normal device function.
[2019-05-04 10:25] LABS: BUN Creatinine Ratio 23.4 (10-20); Calcium 8.6 mg/dl (8.5-10.1); Creatinine Clr Calc Pharmacy 69.6 ml/min; Est GFR (African American) 79.3; Est GFR (Non-African American) 68.5; Potassium 3.9 mmol/L (3.5-5.1)
--- NOTE | 2019-05-04 11:54 | Discharge Summary ---
Date of Service date of admission - May 02, 2019 date of discharge - May 04, 2019 Admission HPI Per Admitting Provider Ivett Chan is a pleasant 68yo C female with history of HTN, Hyperlipidemia, DM, chronic low back pain, morbid obesity, and Hypothyroidism presenting with symptomatic bradycardia. At time of ER presentation was found to be in complete heart block. Patient states that around 13:00 today she began to feel "loopy" with slight shortness of breath, dizziness and diaphoresis. She was able to go to her appointment for her knee injection. Symptoms persisted through the afternoon so the patient came to the ER. Upon arrival she was found to be in complete heart block, rate of 31 bpm, variable blood pressures. Dr. Lantigua from Cardiology was consulted and the patient was taken for placement of a temporary pacemaker. Patient was administered 1mg of atropine and was started on a dopamine infusion which has since been discontinued. She had a temporary pacemaker placed through right internal jugular as well as placement of a right arterial line. Settings of VVI, 60bpm, 5mA. Procedure was well tolerated with no complications identified. The patient was transferred to the MICU for overnight, plans for permanent pacemaker placement in AM. Patient with no complaints at present. Denies ever having CP, palpitations, or syncope. Denies abdominal pain, nausea, vomiting, diarrhea or constipation. No additional complaints at this time. Appears to be in NSR at 86 bpm. No additional complaints at this time. Principal Diagnosis complete heart block s/p permanent pacemaker placement Discharge Exam Constitutional + morbidly obese; no acute distress and no altered mental status ENMT Mouth: + tongue abnormality (?thrush) Respiratory normal respiratory effort, lungs clear to auscultation Cardiovascular Rate/Rhythm: regular rate and regular rhythm Heart Sounds: normal S1 and normal S2; no murmur Vessels: posterior tibial pulses present and dorsalis pedis pulses present; no JVD Extremities: no edema Chest (Breasts) Additional Comments: pacemaker site clean upper chest Gastrointestinal (Abdomen) normal bowel sounds, soft, nontender, no hepatosplenomegaly Musculoskeletal Spine: + lumbar spinal tenderness and + paraspinal tenderness Psychiatric A+Ox3, euthymic affect Discharge Data Allergies Allergy/AdvReac Type Severity Reaction Status Date / Time No Known Allergies Allergy NKA Verified 12/23/14 23:07 Consultations 1. critical care 2. [facility] Cardiology - Boris Lantigua MD / Boris Rodriguez MD 3. PT Procedures Performed Operation Date: 05/02/19 17:30 Actual Procedures p Temporary Transcutaneous Pacing - Boris Lantigua MD s Central Venous Cath Placement - Boris Lantigua MD s Fluoro Central Venous Access - Boris Lantigua MD s Ultrasound Vascular Access - Boris Lantigua MD Operation Date: 05/03/19 10:00 Actual Procedures p Permanent Pacemaker placement with A/V Leads (Dual) - Boris Rodriguez MD Arterial line, right wrist Ordered Studies echocardiogram: * normal EF * normal valve function * grade 1 diastolic dysfunction Hospital Course (1) Heart block AV complete: Dr Boris Lantigua from cardiology emergently placed a temporary pacemaker for her complete AV block at time of admission. Following such she was admitted to the ICU. She then underwent permanent pacemaker placement by Dr Boris Rodriguez on the following hospital day. There were no apparent post-op complications. Post-op cxr was normal. Lymes was noted to be negative. Echo with preserved EF. TSH largely normal. (ie - no severe hypothyroidism) Pacemaker was checked on day of discharge and was functioning normally. She will have a pacemaker check within 1 week of discharge. Discharge instructions were given regarding incision care, restrictions of activity, etc. (2) Hypertension: Meds were temporarily held in the presence of her AV block. These were resumed at discharge with the exception of her beta benjamín. (3) Hypercholesteremia: Continue Simvastatin (4) Diabetes: Metformin and Glimepiride were held while inpatient Pharmacy glycemic team managed her DM Control was quite adequate She will resume her normal PO meds at discharge (5) Hypothyroid: TSH minimally depressed but would not change dose for now cont synthroid repeat TSH as outpt in 4-6 weeks to ensure stability (6) Depression: Chronic. Stable Continue Venlafaxine (7) Morbid obesity with BMI of 50.0-59.9, adult: BMI 50 (8) Chronic low back pain: cont gabapentin in light of her previous breast cancer history I recommended she d/w her PCP about possibly obtaining additional imaging to ensure no new pathology within the back (9) Candidiasis of mouth and esophagus: nystatin QID x 7 days Total Time Total Time Spent Total Time Spent (In Minutes): 35 Total Time Includes: Examination of the Patient, Discharge Planning, Medication Reconciliation and Communication With Other Providers Discharge Plan Discharge Items Patient Disposition: Home - Self-Care Reason For Visit: COMPLETE HEART BLOCK Discharge Diagnosis: complete heart block with placement of permanent pacemaker Goals: 1. improve dizziness 2. treat the heart block 3. place pacemaker Activity: Per Instructions section Non-emergency contact: Primary Care Provider and Bushel Worker Call non-emergency contact if: you have any medication questions, your symptoms worsen, your pain is not controlled, your pain is worsening, you have a fever, your wound has increased redness, your wound has increased drainage and your wound pain has increased Follow-up/Referrals: Daren Rodriguez MD [Physician] - (see Dr Rodriguez within 1 week for pacer check ) Hubert Cobos MD [Primary Care Provider] - 05/09/19 11:30 am (An appointment has been made at your PCP's office on your behalf. Please call the office with any questions or concerns. ) Diet: Carb Consistent or DM2 and Heart Healthy Addtl Attending Provider Instructions: You were admitted with a diagnosis of complete heart block. You needed a temporary pacemaker and then ultimately a permanent pacemaker was implanted by Dr Boris Rodriguez. The device was checked on 05/04/19 and is working well. The incision is clean and acceptable. Lyme disease testing was normal while hospitalized (this was checked to rule out lyme disease as advanced lyme's can cause heart block). 1. ACTIVITY RECOMMENDATIONS following your pacemaker placement: * Do not raise your LEFT arm over your head, behind your neck, or behind your back for 6 weeks. SPECIAL CARE INSTRUCTIONS: * If bleeding occurs, apply direct pressure to area for 5 minutes. * Call your doctor if you have severe pain, fever, drainage or bleeding at site. * Keep dressing on and dry for 48 hours then remove. * Keep any scheduled doctor's appointment. * Implant Card - hand held device with website information given. SKIN IRRITATION: * You may experience some redness and/or swelling in the area where radiation was administered. If any skin irritation occurs, please contact your family physician. Steri Strips: * Please leave steri strips intact. Do not remove. * OK to shower, but do NOT let the pacemaker site get wet at any time. Keep covered, clean and dry during showers. NO TUB BATHS/immersion or swimming until cleared by Dr Rodriguez. 2. Other recommendations - * your TSH (thyroid level) was slightly off when checked this admission. Continue your same dose of thyroid medication but please have Dr Vasiliy Galan repeat the level in 4-6 weeks. * have Dr Vasiliy Galan perhaps recheck some x-rays or CAT scans of your back since your back troubles continue; it has been many years since your last set of x- rays/MRIs/etc * hold your atenolol for now but resume all prior medications * nystatin swish and spit 5cc before meals and at bedtime for 7 days Follow-up - see separate section Return to [facility] if - * your pacemaker incision is red, draining fluid, painful, etc * you have fevers over 100.5 degrees * you have shortness of breath or chest pain * any other concerns Pending Studies at Discharge: No Stand-Alone Forms: My [facility] Medications and DC Order Prescriptions: New nystatin 100,000 unit/mL suspension 5 ml PO ACHS 7 Days Qty: 150 RF: 0 Continued furosemide 40 mg tablet 40 mg PO DAILY RF: 0 potassium chloride 10 mEq capsule, extended release 10 meq PO BID RF: 0 venlafaxine 75 mg capsule,extended release 24hr 75 mg PO DAILY RF: 0 simvastatin 40 mg tablet 40 mg PO HS RF: 0 metformin 1,000 mg tablet 500 mg PO QAM RF: 0 metformin 1,000 mg tablet 1,000 mg PO QPM RF: 0 lisinopril 10 mg tablet 10 mg PO DAILY RF: 0 glimepiride 4 mg tablet 4 mg PO QAM RF: 0 glimepiride 4 mg tablet 2 mg PO QPM RF: 0 levothyroxine 150 mcg tablet 150 mcg PO DAILY RF: 0 gabapentin 300 mg capsule 300 mg PO TID RF: 0 zolpidem 10 mg tablet 10 mg PO HS RF: 0 Discontinued atenolol 25 mg tablet 12.5 mg PO DAILY RF: 0 Discharge Orders: Discharge Order (Routine); Ordered 05/04/19 Ordered By: Tuan Trevizo Admission Data Admit Date/Time: 05/02/19 17:52 Attending Provider: Tuan Trevizo Admit Provider: Daren Lantigua Primary Care Provider: Hubert Cobos Other Providers: Davian Hinton Other Interventions: Discharge Summary Assessment (RN) Last Done: 05/04/19 12:40 DC Date/Time DO NOT enter until pt leaves facility: 05/04/19 13:05
== END 2019-05-04 13:05 | disposition home or self-care (01) | DRG 243 ==
LOC: ED 16:30 → 1E 17:45 → OR 17:45 → 1E 17:52 → SUATTDRO 17:52 → 2S 05-03 18:04
PROC: CLB.TTP (2019-05-02 17:30)

== ENCOUNTER 2021-06-15 10:37 | Inpatient (IN) ==
--- NOTE | 2021-06-15 10:53 | Emergency Department Note ---
Impression & Plan Acute renal failure, Acute alteration in mental status, Acute hyperkalemia, Weakness, Pulmonary edema, Falls frequently ED Provider Note NAME: RENETTA MYOER AGE: 70 SEX: F : 1950 ARRIVES VIA: Ambulance INFORMANT: Patient, the patient's family members ED PROVIDER(S): Elver Conde DO CHIEF COMPLAINT: Fever HPI: The patient is a 70-year-old female who presented to the emergency department by ambulance for an evaluation of altered mental status. The patient has been experiencing febrile symptoms over the course the last week plus. She has been noted to have decreased mental status decreased p.o. intake and his gen eralized weakness. She presented by ambulance. Her daughter is a nurse and is very concerned because her mother's breathing status has slowly worsened especially over the last 48 hours. She was found to have significant hypoxia in the 70s prior to arrival. She was also noted to have abnormal lung sounds. She was placed on submental oxygen with only minimal improvement of her symptoms. She has no reported nausea or vomiting. She has had no abdominal pain. She denies having any back pain or chest pain. She has had easy bruising on her skin as well as her daughter is noticed that her skin is pale compared to baseline. She was not seen by her primary care physician recently for the sym ptoms. She received an IV fluid bolus prior to arrival. ROS: See above HPI for pertinent positives & negatives. A total of 10 systems reviewed and were otherwise negative. PAST MEDICAL HISTORY: See Below PAST SURGICAL HISTORY: See Below FAMILY HISTORY: See Below SOCIAL HISTORY: See Below HOME MEDICATIONS: See Below ALLERGIES: See Below VITALS: See Below PHYSICAL EXAMINATION: GENERAL: The patient is awake to verbal commands. She is slow to answer questions. He does follow commands appropriately. EYES: The conjunctivae are clear. The pupils are round and reactive. EARS, NOSE, MOUTH AND THROAT: The nose is without any evidence of any deformity. Mucous membranes are dry. NECK: The neck is nontender and supple. RESPIRATORY: Diminished breath sounds are noted throughout. There were rales at both lung cisse. There is no significant tachypnea or conversational dyspnea. CARDIOVASCULAR: Regular rate and rhythm noted to auscultation. Systolic murmur was suggested. GASTROINTESTINAL: The abdomen is soft. Abdomen is nontender. MUSCULOSKELETAL/EXTREMITIES: There is no evidence of gross deformity full range of motion is noted in the hips and shoulders. SKIN: Skin is warm and dry. Pedal edema was noted bilaterally. There was areas of bruising over both upper and lower extremities. NEUROLOGIC: Patient is awake to verbal commands. She appears to be oriented to person place as well as situation. She recognizes her family members. MEDICAL DECISION MAKING: The patient is a 70-year-old female who presented to the emergency department for an evaluation of generalized weakness difficulty breathing and frequent falls. The patient's had a change in her mental status and her medical condition has been worsening slowly over the course the last few months. She was seen after a fall. She had radiographic studies and laboratory studies as well. I discussed the patient's laboratory and radiographic studies with her today. She received multiple small fluid boluses in the emergency department. She had signs of pulmonary edema on chest x-ray but this could be secondary to renal failure. Her potassium was high but she had no EKG changes. This could also be because the patient has a pacemaker. I discussed the patient's laboratory and radiographic studies with her and her family. She was also treated with antibiotics. She is Covid tested positive however this could be coincidental because she does not have any specific Covid symptoms at this time. This is difficult to ascertain as her mental status is not at baseline. I discussed her condition with the on-call [facility] hospitalist. They have agreed to evaluate the patient in the emergency department for further management and disposition. The patient's mental status did not change significantly. On radiographic studies she was found to have the possibility of diffuse metastatic disease. This would be a new diagnosis. The family was made aware. Triage Nursing notes reviewed. Prior medical records reviewed Vital Signs: reviewed and remarkable for hypotension. Differential diagnosis: Reactive airway disease, pneumonia, pneumothorax, COPD, CHF, infections, cardiac ischemia, pulmonary embolism, musculoskeletal, gastrointestinal, as well as other pathologies. ER treatment provided: See below Diagnostics interpreted by me: ECG: EKG was obtained in the emergency department. My interpretation is ventric ular paced rhythm at 86 bpm. [place] atrial beats were noted. There were no pra[place] beats noted with the ventricle. This was compared to a tracing from May 022018. Paced rhythm has replaced complete heart block. Cardiac Monitoring: An order was placed for continuous cardiac monitoring. The monitor shows a rate of 81 bpm with paced rhythm. Laboratory studies: As stated above and show below. Imaging studies: See below Consultation(s): I discussed this case with Dr. Hameed who is on-call for the [facility] hospitalist group. 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 Beliefs That Will Affect Care: None marital status: Current Living Situation: Spouse Feels Safe at Home: Yes Assistive Devices: Oxygen - Continuous Allergies Allergies Allergy/AdvReac Type Severity Reaction Status Date / Time No Known Drug Allergies Allergy Verified 09/23/20 11:42 meloxicam [From Mobic] AdvReac Confusion, Verified 06/15/21 14:04 fevers, sweats Home Meds Home Medications Medication Instructions Recorded Confirmed furosemide 40 mg tablet 40 mg PO DAILY 05/02/19 06/15/21 gabapentin 300 mg capsule 300 mg PO TID 05/02/19 06/15/21 glimepiride 4 mg tablet 4 mg PO QAM 05/02/19 06/15/21 levothyroxine 150 mcg tablet 150 mcg PO DAILY 05/02/19 06/15/21 lisinopril 10 mg tablet 10 mg PO DAILY 05/02/19 06/15/21 metformin 1,000 mg tablet 1,000 mg PO QPM 05/02/19 06/15/21 potassium chloride 10 mEq 10 meq PO BID 05/02/19 06/15/21 capsule,extended release simvastatin 40 mg tablet 40 mg PO HS 05/02/19 06/15/21 venlafaxine 75 mg capsule,extended 75 mg PO DAILY 05/02/19 06/15/21 release 24 hr zolpidem 10 mg tablet 10 mg PO HS 05/02/19 06/15/21 Previous Rx's Medication Instructions Recorded celecoxib 200 mg capsule (Celebrex) 200 mg PO DAILY PRN #10 cap 10/21/20 Results & Data (ED) Vital Signs Vital Signs - 24 hr 06/15/21 10:44 06/15/21 10:47 06/15/21 11:27 Temperature 37.7 C H Temperature Source Oral Pulse Rate 84 81 Pulse Rate [Apical] Pulse Rhythm Regular Regular Pulse Rhythm [Apical] Pulse Strength Normal Pulse Strength [Apical] Respiratory Rate 28 H 28 H Respiratory Effort / Characteristics Non-Labored Spontaneous Non-Labored Spontaneous Respiratory Depth Shallow Respiratory Pattern Tachypnea Blood Pressure 99/54 L Blood Pressure [Left Arm] Blood Pressure Mean 69 Blood Pressure Mean [Left Arm] Blood Pressure Position Sitting Blood Pressure Position [Left Arm] Pulse Oximetry 96 96 99 Oxygen Delivery Method Nasal Cannula Nasal Cannula Nasal Cannula Oxygen Flow Rate 2 2 2 Sepsis Recent Fever Within 48 Hours Yes Sepsis New/Unexplained Change in Mental Status Yes Sepsis Action Taken by Nursing Physician Notified 06/15/21 12:31 06/15/21 12:54 06/15/21 13:00 Temperature 37.7 C H Temperature Source Oral Pulse Rate Pulse Rate [Apical] 81 81 80 Pulse Rhythm Pulse Rhythm [Apical] Regular Regular Regular Pulse Strength Pulse Strength [Apical] Normal Normal Normal Respiratory Rate 28 H 28 H 26 H Respiratory Effort / Characteristics Non-Labored Spontaneous Non-Labored Spontaneous Non-Labored Spontaneous Respiratory Depth Normal Normal Normal Respiratory Pattern Regular Tachypnea Tachypnea Blood Pressure Blood Pressure [Left Arm] 101/48 L 100/48 L 104/49 L Blood Pressure Mean Blood Pressure Mean [Left Arm] 65 65 67 Blood Pressure Position Blood Pressure Position [Left Arm] Lying Lying Lying Pulse Oximetry 94 93 100 Oxygen Delivery Method Nasal Cannula Nasal Cannula Nasal Cannula Oxygen Flow Rate 2.5 2.5 2.5 Sepsis Recent Fever Within 48 Hours Sepsis New/Unexplained Change in Mental Status Sepsis Action Taken by Nursing 06/15/21 13:15 06/15/21 13:30 06/15/21 13:55 Temperature Temperature Source Pulse Rate Pulse Rate [Apical] 80 Pulse Rhythm Pulse Rhythm [Apical] Regular Pulse Strength Pulse Strength [Apical] Normal Respiratory Rate 26 H 24 Respiratory Effort / Characteristics Non-Labored Spontaneous Non-Labored Spontaneous Respiratory Depth Normal Respiratory Pattern Tachypnea Blood Pressure Blood Pressure [Left Arm] 100/50 L Blood Pressure Mean Blood Pressure Mean [Left Arm] 66 Blood Pressure Position Blood Pressure Position [Left Arm] Lying Pulse Oximetry 99 96 95 Oxygen Delivery Method Nasal Cannula Nasal Cannula Nasal Cannula Oxygen Flow Rate 2.5 2.5 2.5 Sepsis Recent Fever Within 48 Hours Sepsis New/Unexplained Change in Mental Status Sepsis Action Taken by Nursing 06/15/21 13:58 Temperature 37.3 C Temperature Source Oral Pulse Rate Pulse Rate [Apical] 81 Pulse Rhythm Pulse Rhythm [Apical] Regular Pulse Strength Pulse Strength [Apical] Normal Respiratory Rate 26 H Respiratory Effort / Characteristics Non-Labored Spontaneous Respiratory Depth Normal Respiratory Pattern Regular Blood Pressure Blood Pressure [Left Arm] 101/48 L Blood Pressure Mean Blood Pressure Mean [Left Arm] 65 Blood Pressure Position Blood Pressure Position [Left Arm] Sitting Pulse Oximetry 95 Oxygen Delivery Method Nasal Cannula Oxygen Flow Rate 2.5 Sepsis Recent Fever Within 48 Hours Sepsis New/Unexplained Change in Mental Status Sepsis Action Taken by [facility] Medications Current Medication List: was personally reviewed by me Laboratory Data Attestation: I reviewed the patient's lab results. Result diagrams: 06/15/21 11:10 06/15/21 11:10 Lab Results 06/15/21 06/15/21 06/15/21 Range/Units 10:56 11:10 11:10 WBC 4.26 L (4.8-10.8) K/uL RBC 3.32 L (4.2-5.4) M/uL Hgb 10.8 L (12.0-16.0) g/dL Hct 33.4 L (37-47) % MCV 100.6 H (80-100) fL MCH 32.5 (25-34) pg MCHC 32.3 (32-36) g/dL RDW Std Deviation 50.7 H (36.4-46.3) fL RDW Coeff of Edy 13.6 (11.5-14.5) % Plt Count 175 (130-400) K/uL MPV 8.8 (7.4-10.4) fL Immature Gran % (Auto) 0.2 % Neut % (Auto) 50.2 % Lymph % (Auto) 27.2 % [place] % (Auto) 21.4 % Eos % (Auto) 0.5 % Baso % (Auto) 0.5 % Neut # (Auto) 2.14 (1.4-6.5) K/uL Lymph # (Auto) 1.16 L (1.2-3.4) K/uL [place] # (Auto) 0.91 H (0.11-0.59) K/uL Eos # (Auto) 0.02 (0-0.5) K/uL Baso # (Auto) 0.02 (0-0.2) K/uL Immature Gran # (Auto) 0.01 (0.00-0.02) K/uL PT 11.8 (9.0-12.0) Seconds INR 1.2 H (0.9-1.1) APTT 30.0 (21.0-31.0) Seconds PTT Ratio 1.1 VBG pH (7.36-7.41) VBG pCO2 (38-50) mmHg VBG pO2 mmHg VBG HCO3 mmol/L VBG O2 Saturation % VBG Base Excess mEq/L Barometric Pressure mm/Hg Sodium (136-145) mmol/L Potassium (3.5-5.1) mmol/L Chloride (98-107) mmol/L Carbon Dioxide (21-32) mmol/L Anion Gap (3-11) BUN (7-18) mg/dl Creatinine (0.6-1.2) mg/dl Est Cr Clr Drug Dosing ml/min Est GFR ( Amer) ml/min Est GFR (Non-Af Amer) ml/min BUN/Creatinine Ratio (10-20) Glucose (70-99) mg/dl Lactate (0.4-2.0) mmol/L Calcium (8.5-10.1) mg/dl Magnesium (1.8-2.4) mg/dl Total Bilirubin (0.2-1) mg/dl AST (15-37) U/L ALT (12-78) U/L Alkaline Phosphatase (45-117) U/L Total Creatine Kinase (26-192) U/L CK-MB (CK-2) (0.5-3.6) ng/ml CK/CKMB % Calc Troponin I (0-0.045) ng/ml NT-Pro-B Natriuret Pep (0-900) pg/ml Total Protein (6.4-8.2) gm/dl Albumin (3.4-5.0) gm/dl Globulin (2.5-4.0) gm/dl Albumin/Globulin Ratio (0.9-2) Procalcitonin (0-0.5) ng/ml Urine Color Yellow Urine Appearance Clear (Clear) Urine pH 5.0 (4.5-7.5) Ur Specific [place] 1.016 (1.000-1.030) Urine Protein 1+ H (Negative) Urine Glucose (UA) Negative (Negative) Urine Ketones Negative (Negative) Urine Blood Negative (Negative) Urine Nitrite Negative (Negative) Urine Bilirubin Negative (Negative) Urine Urobilinogen Negative (Negative) Ur Leukocyte Esterase Negative (Negative) Urine WBC (Auto) 1-5 (0-5) /hpf Urine RBC (Auto) 5-10 H (0-4) /hpf U Hyaline Cast (Auto) 1-5 (0-5) /lpf U Epithel Cells (Auto) 10-20 H (0-5) /lpf Urine Bacteria (Auto) 1+ H (Negative) SARS-CoV-2 (PCR) (Negative) 06/15/21 06/15/21 06/15/21 Range/Units 11:10 11:10 11:10 WBC (4.8-10.8) K/uL RBC (4.2-5.4) M/uL Hgb (12.0-16.0) g/dL Hct (37-47) % MCV (80-100) fL MCH (25-34) pg MCHC (32-36) g/dL RDW Std Deviation (36.4-46.3) fL RDW Coeff of Edy (11.5-14.5) % Plt Count (130-400) K/uL MPV (7.4-10.4) fL Immature Gran % (Auto) % Neut % (Auto) % Lymph % (Auto) % [place] % (Auto) % Eos % (Auto) % Baso % (Auto) % Neut # (Auto) (1.4-6.5) K/uL Lymph # (Auto) (1.2-3.4) K/uL [place] # (Auto) (0.11-0.59) K/uL Eos # (Auto) (0-0.5) K/uL Baso # (Auto) (0-0.2) K/uL Immature Gran # (Auto) (0.00-0.02) K/uL PT (9.0-12.0) Seconds INR (0.9-1.1) APTT (21.0-31.0) Seconds PTT Ratio VBG pH (7.36-7.41) VBG pCO2 (38-50) mmHg VBG pO2 mmHg VBG HCO3 mmol/L VBG O2 Saturation % VBG Base Excess mEq/L Barometric Pressure mm/Hg Sodium 131 L (136-145) mmol/L Potassium 6.5 H* (3.5-5.1) mmol/L Chloride 101 (98-107) mmol/L Carbon Dioxide 23 (21-32) mmol/L Anion Gap 7.0 (3-11) BUN 54 H (7-18) mg/dl Creatinine 3.29 H (0.6-1.2) mg/dl Est Cr Clr Drug Dosing 17.0 ml/min Est GFR ( Amer) 15.7 ml/min Est GFR (Non-Af Amer) 13.5 ml/min BUN/Creatinine Ratio 16.5 (10-20) Glucose 105 H (70-99) mg/dl Lactate 1.6 (0.4-2.0) mmol/L Calcium 9.7 (8.5-10.1) mg/dl Magnesium 2.6 H (1.8-2.4) mg/dl Total Bilirubin 0.4 (0.2-1) mg/dl AST 159 H (15-37) U/L ALT 54 (12-78) U/L Alkaline Phosphatase 116 (45-117) U/L Total Creatine Kinase (26-192) U/L CK-MB (CK-2) (0.5-3.6) ng/ml CK/CKMB % Calc Troponin I < 0.015 (0-0.045) ng/ml NT-Pro-B Natriuret Pep 547 (0-900) pg/ml Total Protein 7.8 (6.4-8.2) gm/dl Albumin 3.3 L (3.4-5.0) gm/dl Globulin 4.5 H (2.5-4.0) gm/dl Albumin/Globulin Ratio 0.7 L (0.9-2) Procalcitonin 0.58 H (0-0.5) ng/ml Urine Color Urine Appearance (Clear) Urine pH (4.5-7.5) Ur Specific [place] (1.000-1.030) Urine Protein (Negative) Urine Glucose (UA) (Negative) Urine Ketones (Negative) Urine Blood (Negative) Urine Nitrite (Negative) Urine Bilirubin (Negative) Urine Urobilinogen (Negative) Ur Leukocyte Esterase (Negative) Urine WBC (Auto) (0-5) /hpf Urine RBC (Auto) (0-4) /hpf U Hyaline Cast (Auto) (0-5) /lpf U Epithel Cells (Auto) (0-5) /lpf Urine Bacteria (Auto) (Negative) SARS-CoV-2 (PCR) (Negative) 06/15/21 06/15/21 06/15/21 Range/Units 11:10 11:12 11:57 WBC (4.8-10.8) K/uL RBC (4.2-5.4) M/uL Hgb (12.0-16.0) g/dL Hct (37-47) % MCV (80-100) fL MCH (25-34) pg MCHC (32-36) g/dL RDW Std Deviation (36.4-46.3) fL RDW Coeff of Edy (11.5-14.5) % Plt Count (130-400) K/uL MPV (7.4-10.4) fL Immature Gran % (Auto) % Neut % (Auto) % Lymph % (Auto) % [place] % (Auto) % Eos % (Auto) % Baso % (Auto) % Neut # (Auto) (1.4-6.5) K/uL Lymph # (Auto) (1.2-3.4) K/uL [place] # (Auto) (0.11-0.59) K/uL Eos # (Auto) (0-0.5) K/uL Baso # (Auto) (0-0.2) K/uL Immature Gran # (Auto) (0.00-0.02) K/uL PT (9.0-12.0) Seconds INR (0.9-1.1) APTT (21.0-31.0) Seconds PTT Ratio VBG pH 7.32 L (7.36-7.41) VBG pCO2 45 (38-50) mmHg VBG pO2 37 mmHg VBG HCO3 23 mmol/L VBG O2 Saturation 65.0 % VBG Base Excess -3.2 mEq/L Barometric Pressure 729.3 mm/Hg Sodium (136-145) mmol/L Potassium (3.5-5.1) mmol/L Chloride (98-107) mmol/L Carbon Dioxide (21-32) mmol/L Anion Gap (3-11) BUN (7-18) mg/dl Creatinine (0.6-1.2) mg/dl Est Cr Clr Drug Dosing ml/min Est GFR ( Amer) ml/min Est GFR (Non-Af Amer) ml/min BUN/Creatinine Ratio (10-20) Glucose (70-99) mg/dl Lactate (0.4-2.0) mmol/L Calcium (8.5-10.1) mg/dl Magnesium (1.8-2.4) mg/dl Total Bilirubin (0.2-1) mg/dl AST (15-37) U/L ALT (12-78) U/L Alkaline Phosphatase (45-117) U/L Total Creatine Kinase 83 (26-192) U/L CK-MB (CK-2) < 1.0 (0.5-3.6) ng/ml CK/CKMB % Calc TNP Troponin I (0-0.045) ng/ml NT-Pro-B Natriuret Pep (0-900) pg/ml Total Protein (6.4-8.2) gm/dl Albumin (3.4-5.0) gm/dl Globulin (2.5-4.0) gm/dl Albumin/Globulin Ratio (0.9-2) Procalcitonin (0-0.5) ng/ml Urine Color Urine Appearance (Clear) Urine pH (4.5-7.5) Ur Specific [place] (1.000-1.030) Urine Protein (Negative) Urine Glucose (UA) (Negative) Urine Ketones (Negative) Urine Blood (Negative) Urine Nitrite (Negative) Urine Bilirubin (Negative) Urine Urobilinogen (Negative) Ur Leukocyte Esterase (Negative) Urine WBC (Auto) (0-5) /hpf Urine RBC (Auto) (0-4) /hpf U Hyaline Cast (Auto) (0-5) /lpf U Epithel Cells (Auto) (0-5) /lpf Urine Bacteria (Auto) (Negative) SARS-CoV-2 (PCR) POSITIVE A* (Negative) Administered Medications Discontinued Medications Acetaminophen (Acetaminophen 1000 Mg/100 Ml Iv) 1,000 mg IV ONE ONE Stop: 06/15/21 12:44 Last Admin: 06/15/21 12:51 Dose: 1,000 mg Documented by: [id number] Ceftriaxone Sodium (Rocephin) 1,000 mg in 50 mls @ 100 mls/hr IV NOW STA Stop: 06/15/21 12:15 Last Admin: 06/15/21 12:37 Dose: 100 mls/hr Documented by: [id number] Sodium Chloride (Nss 1000ml) 500 mls @ 999 mls/hr IV .Q31M ONE Stop: 06/15/21 12:16 Last Admin: 06/15/21 12:37 Dose: 999 mls/hr Documented by: [id number] Sodium Chloride (Nss) 500 mls @ 999 mls/hr IV .Q31M ONE Stop: 06/15/21 13:48 Last Admin: 06/15/21 13:34 Dose: 999 mls/hr Documented by: [id number] Imaging Data Radiologist's Impression: Chest X-Ray 06/15/21 10:47 XR chest 1V portable HISTORY: 70 years-old Female SEPSIS acute sepsis COMPARISON: Chest radiograph 05/04/2019 TECHNIQUE: Supine AP view of the chest FINDINGS: Cardiac silhouette is moderately enlarged. Left subclavian pacer. Calcified plaque the thoracic aorta. Poorly vascular congestion with interstitial coarsening. There is no pneumothorax or large pleural effusion. Degenerative changes of the shoulders and spine. IMPRESSION: Cardiomegaly with pulmonary vascular congestion and interstitial coarsening suggestive of pulmonary edema versus interstitial pneumonitis. ACT 112: Negative or not required by law. The above report was generated using voice recognition software. It may contain grammatical, syntax or spelling errors. Electronically signed by: Henri Chanel M.D. 06/15/2021 11:[address] 06/15/21 10:47 CT head/brain wo con CLINICAL HISTORY: 70 years-old Female with AMS. Acutely altered mental status with renal failure TECHNIQUE: Multiple axial CT images of the head were obtained without contrast. A dose lowering technique was utilized adhering to the principles of ALARA. COMPARISON: CT abdomen and pelvis of same day, Head CT 05/13/2021, brain MRI , head CT 12/23/2014 FINDINGS: No acute intracranial hemorrhage, midline shift, hydrocephalus, territorial ischemia or abnormal extra-axial collection. Cerebral vascular calcifications. Minimal involutional changes. Senescent calcifications of the lentiform nuclei. Partially calcified focus of the central berta measuring 8 x 5 mm is new from 2014. Probable meningioma centered within the right cavernous sinus redemonstrated measuring approximately 3.9 x 2.4 cm on image 12 series 2. Again, this appears to encase the right internal carotid artery causes mild mass effect upon the adjacent temporal lobe. The calvarium is intact. The paranasal sinuses, mastoid air cells, and middle ear cavities are clear. IMPRESSION: 1. No acute intracranial abnormality. 2. Subcentimeter partially calcified lesion of the central berta is new from 10/22/2016. Considering the pulmonary lesions seen on the CT abdomen and pelvis study of same day, a metastatic focus is within the differential however would be atypical. 3. Extra-axial lesion centered within the right cavernous sinus and middle cranial fossa suggestive of a meningioma redemonstrated. ACT 112: Negative or not required by law. The above report was generated using voice recognition software. It may contain grammatical, syntax or spelling errors. Electronically signed by: Henri Chanel M.D. 06/15/2021 12:47 PM Abdomen/Pelvis CT 06/15/21 11:46 CT OF THE ABDOMEN AND PELVIS WITHOUT CONTRAST CLINICAL HISTORY: Renal failure. Altered mental status. COMPARISON STUDY: CT of the abdomen and pelvis November 24, 2011. TECHNIQUE: Axial images of the abdomen and pelvis were obtained without IV contrast. Images were reviewed in the axial, sagittal, and coronal planes. Automated exposure control was utilized for the study. A dose lowering technique was utilized adhering to the principles of ALARA. FINDINGS: Note is made of numerous solid noncalcified nodules within the lower lungs which are new since prior abdominal CT of November 24, 2011. Index right middle lobe nodule on image 45 of 486 measures 1.8 cm. Pacer leads are partially imaged. There is cardiomegaly. Evaluation of the abdomen and pelvis is suboptimal on this unenhanced examination. No pneumatosis, free air or portal venous gas is present. The liver is enlarged. There is probable hepatic s teatosis. Lateral segment is enlarged. There is mild nodularity liver surface. No hepatic lesions are identified on this unenhanced exam. There is no biliary ductal dilatation status post cholecystectomy. Unenhanced images of the spleen and adrenal glands are unremarkable. Note is made of a 6 mm left renal pelvis calculus. There is no hydronephrosis. There is a 7 mm right renal calculus. There are no ureteral calculi. There is an indeterminate 2.1 cm lesion within the lower pole the left kidney which measures above water attenuation. There is no evidence for a bowel obstruction. Colonic diverticulosis is noted without evidence for acute diverticulitis. The appendix is normal. Moreno balloon within the bladder is noted. Fat-containing umbilical and ventral hernias are present. Sclerotic lesions within the T8 and L5 vertebral bodies are new since prior abdominal CT. IMPRESSION: 1. Numerous noncalcified solid pulmonary nodules within the lower lungs which are suspicious for metastatic disease. Follow-up nonemergent chest CT is recomme nded as well as correlation with patient's oncologic history. 2. Sclerotic lesions within the T8 and L5 vertebral bodies which are suspicious for metastases. 3. 6 mm left renal pelvis calculus. Right-sided nephrolithiasis. No hydronephrosis. No ureteral calculi. 4. Hepatic steatosis and hepatomegaly. 5. Indeterminate 1 cm left renal lesion. This could reflect a hyperdense cyst or solid renal lesion. 6. Colonic diverticulosis without evidence for acute diverticulitis. ACT 112: Positive. There are findings on this exam that require communication between the performing entity and the patient following Patient Test Result Information Act ([place] Act 112) guidelines. Electronically signed by: Ye Moncada M.D. 06/15/2021 12:[address] 06/15/21 12:15 CT cervical spine wo con CT DOSE: 2721.44 mGy.cm CLINICAL HISTORY: 70 years-old Female with falls. Acute neck injury status post fall COMPARISON: Head CT of same day and also 05/13/2021 TECHNIQUE: Multiple axial CT images of the cervical spine were obtained without contrast. A dose lowering technique was utilized adhering to the principles of ALARA. FINDINGS: Mildly demineralized appearance the bones. Multilevel intervertebral disc space narrowing is moderate to severe at C5-C6 and severe at C6 or C7. Moderate spondylitic spurring with posterior disc osteophyte complex formations at these levels. Moderate to severe multilevel facet arthrosis. Multilevel neural foraminal narrowing. No acute fracture or subluxation. The cervical soft tissues appear unremarkable. Moderate bilateral mastoid effusions with fluid within the right middle ear cavity. No pneumothorax. 7 mm solid nodule of the left lung apex. Partially imaged left subclavian pacer leads. Calcified plaque of the carotid arteries. IMPRESSION: 1. No acute cervical spine fracture or subluxation. 2. 7 mm left apical pulmonary nodule. Correlation with a nonemergent follow-up chest CT is recommended to assess for additional pulmonary nodules. ACT 112: Negative or not required by law. The above report was generated using voice recognition software. It may contain grammatical, syntax or spelling errors. Electronically signed by: Henri Chanel M.D. 06/15/2021 12:29 PM Discharge Plan Visit Data Chief Complaint: Lethargic Stated Complaint: ILLNESS ED Provider: Elver Conde Discharge Problem: Acute renal failure, Acute alteration in mental status, Acute hyperkalemia, Weakness, Pulmonary edema, Falls frequently Patient Disposition: Being Evaluated by Hospitalist Forms Stand Alone Forms: [facility] Prescriptions Prescriptions: No Action celecoxib [Celebrex] 200 mg capsule 200 mg PO DAILY PRN (Reason: pain) Qty: 10 RF: 0 furosemide 40 mg tablet 40 mg PO DAILY RF: 0 potassium chloride 10 mEq capsule, extended release 10 meq PO BID RF: 0 venlafaxine 75 mg capsule,extended release 24hr 75 mg PO DAILY RF: 0 simvastatin 40 mg tablet 40 mg PO HS RF: 0 metformin 1,000 mg tablet 1,000 mg PO QPM RF: 0 lisinopril 10 mg tablet 10 mg PO DAILY RF: 0 glimepiride 4 mg tablet 4 mg PO QAM RF: 0 levothyroxine 150 mcg tablet 150 mcg PO DAILY RF: 0 gabapentin 300 mg capsule 300 mg PO TID RF: 0 zolpidem 10 mg tablet 10 mg PO HS RF: 0 Referrals Referrals: Hubert Cobos MD [Primary Care Provider] -
[2021-06-15 11:26] LABS: Basophils # (auto) 0.02 K/uL (0-0.2); Basophils % (auto) 0.5 %; Eosinophils # (auto) 0.02 K/uL (0-0.5); Eosinophils % (auto) 0.5 %; Hematocrit (blood only) 33.4 % (37-47); Hemoglobin 10.8 g/dL (12.0-16.0); Immature Granulocytes # (auto) 0.01 K/uL (0.00-0.02); Immature Granulocytes % (auto) 0.2 %; Lymphocytes # (auto) 1.16 K/uL (1.2-3.4); Lymphocytes % (auto) 27.2 %; Mean Corpuscular Hemoglobin 32.5 pg (25-34); Mean Corpuscular Hgb Conc 32.3 g/dL (32-36); Mean Corpuscular Volume 100.6 fL (80-100); Mean Platelet Volume 8.8 fL (7.4-10.4); Monocytes # (auto) 0.91 K/uL (0.11-0.59); Monocytes % (auto) 21.4 %; Neutrophils # (auto) 2.14 K/uL (1.4-6.5); Neutrophils % (auto) 50.2 %; Platelet Count 175 K/uL (130-400); RDW Coefficient of Variation 13.6 % (11.5-14.5); RDW Standard Deviation 50.7 fL (36.4-46.3); Red Blood Count 3.32 M/uL (4.2-5.4); White Blood Count 4.26 K/uL (4.8-10.8)
--- NOTE | 2021-06-15 11:27 | XRay Report ---
XR chest 1V portable HISTORY: 70 years-old Female SEPSIS acute sepsis COMPARISON: Chest radiograph 05/04/2019 TECHNIQUE: Supine AP view of the chest FINDINGS: Cardiac silhouette is moderately enlarged. Left subclavian pacer. Calcified plaque the thoracic aorta . Poorly vascular congestion with interstitial coarsening. There is no pneumothorax or large pleural effusion. Degenerative changes of the shoulders and spine. IMPRESSION: Cardiomegaly with pulmonary vascular congestion and interstitial coarsening suggestive of pulmonary edema versus interstitial pneumonitis. ACT 112: Negative or not required by law. The above report was generated using voice recognition software. It may contain grammatical, syntax o r spelling errors. Electronically signed by: Henri Chanel M.D. 06/15/2021 11:26 AM
[2021-06-15 11:36] LABS: INR 1.2 (0.9-1.1); Partial Thromboplastin Ratio 1.1; Prothrombin Time 11.8 Seconds (9.0-12.0)
[2021-06-15 11:42] LABS: Appearance Urine Clear (Clear); Bilirubin Urine Negative (Negative); Blood Urine Negative (Negative); Color Urine Yellow; Glucose Urine UA Negative (Negative); Ketones Urine Negative (Negative); Leukocyte Esterase Urine Negative (Negative); Nitrite Urine Negative (Negative); Protein Urine 1+ (Negative); Specific Gravity Urine 1.016 (1.000-1.030); Urobilinogen Urine Negative (Negative)
[2021-06-15 11:45] LABS: Alanine Aminotransferase 54 U/L (12-78); Albumin Level 3.3 gm/dl (3.4-5.0); Aspartate Aminotransferase 159 U/L (15-37); BUN Creatinine Ratio 16.5 (10-20); Blood Urea Nitrogen 54 mg/dl (7-18); Calcium 9.7 mg/dl (8.5-10.1); Carbon Dioxide 23 mmol/L (21-32); Chloride 101 mmol/L (98-107); Est GFR (African American) 15.7 ml/min; Est GFR (Non-African American) 13.5 ml/min; Glucose 105 mg/dl (70-99); Magnesium 2.6 mg/dl (1.8-2.4); Sodium 131 mmol/L (136-145)
[2021-06-15] MEDS ORDERED: cefTRIAXone SODIUM 1,000 MG/50 ML BAG IV STA (11:46)
[2021-06-15] MEDS ORDERED: SODIUM CHLORIDE 0.9% 1000ML 500 ML IV ONE ×2 (11:46→18:44)
[2021-06-15 11:52] LABS: Albumin Globulin Ratio 0.7 (0.9-2); Alkaline Phosphatase 116 U/L (45-117); Bilirubin,Total 0.4 mg/dl (0.2-1); Globulin 4.5 gm/dl (2.5-4.0); NT Pro B Type Natriuretic Pept 547 pg/ml (0-900); Potassium 6.5 mmol/L (3.5-5.1); Total Protein 7.8 gm/dl (6.4-8.2); Troponin I < 0.015 ng/ml (0-0.045)
[2021-06-15 12:06] LABS: Base Excess VBG -3.2 mEq/L; pH VBG 7.32 (7.36-7.41)
[2021-06-15 12:11] LABS: Bacteria Urine Automated 1+ (Negative)
--- NOTE | 2021-06-15 12:30 | CT Scan Report ---
CT cervical spine wo con CT DOSE: 2721.44 mGy.cm CLINICAL HISTORY: 70 years-old Female with falls. Acute neck injury status post fall COMPARISON: Head CT of same day and also 05/13/2021 TECHNIQUE: Multiple axial CT images of the cervical spine were obtained without contrast. A dose low ering technique was utilized adhering to the principles of ALARA. FINDINGS: Mildly demineralized appearance the bones. Multilevel intervertebral disc space narrowing i s moderate to severe at C5-C6 and severe at C6 or C7. Moderate spondylitic spurring with posterior di sc osteophyte complex formations at these levels. Moderate to severe multilevel facet arthrosis. Mult ilevel neural foraminal narrowing. No acute fracture or subluxation. The cervical soft tissues appear unremarkable. Moderate bilateral mastoid effusions with fluid within the right middle ear cavity. No pneumothorax. 7 mm solid nodule of the left lung apex. Partially stephanie ged left subclavian pacer leads. Calcified plaque of the carotid arteries. IMPRESSION: 1. No acute cervical spine fracture or subluxation. 2. 7 mm left apical pulmonary nodule. Correlation with a nonemergent follow-up chest CT is recommende d to assess for additional pulmonary nodules. ACT 112: Negative or not required by law. The above report was generated using voice recognition software. It may contain grammatical, syntax o r spelling errors. Electronically signed by: Henri Chanel M.D. 06/15/2021 12:29 PM
[2021-06-15 12:35] LABS: Creatine Kinase 83 U/L (26-192); Creatine Kinase MB < 1.0 ng/ml (0.5-3.6)
[2021-06-15] MEDS ORDERED: ACETAMINOPHEN 1000 MG/100 ML IV IV ONE (12:43)
--- NOTE | 2021-06-15 12:48 | CT Scan Report ---
CT head/brain wo con CLINICAL HISTORY: 70 years-old Female with AMS. Acutely altered mental status with renal failure TECHNIQUE: Multiple axial CT images of the head were obtained without contrast. A dose lowering tech nique was utilized adhering to the principles of ALARA. COMPARISON: CT abdomen and pelvis of same day, Head CT 05/13/2021, brain MRI 10/22/2016, head CT 015 FINDINGS: No acute intracranial hemorrhage, midline shift, hydrocephalus, territorial ischemia or abnormal extr a-axial collection. Cerebral vascular calcifications. Minimal involutional changes. Senescent calcifi cations of the lentiform nuclei. Partially calcified focus of the central berta measuring 8 x 5 mm is new from 2014. Probable meningioma centered within the right cavernous sinus redemonstrated measuring approximately 3.9 x 2.4 cm on image 12 series 2. Again, this appears to encase the right internal ca rotid artery causes mild mass effect upon the adjacent temporal lobe. The calvarium is intact. The paranasal sinuses, mastoid air cells, and middle ear cavities are clear . IMPRESSION: 1. No acute intracranial abnormality. 2. Subcentimeter partially calcified lesion of the central berta is new from 10/22/2016. Considering th e pulmonary lesions seen on the CT abdomen and pelvis study of same day, a metastatic focus is within the differential however would be atypical. 3. Extra-axial lesion centered within the right cavernous sinus and middle cranial fossa suggestive o f a meningioma redemonstrated. ACT 112: Negative or not required by law. The above report was generated using voice recognition software. It may contain grammatical, syntax o r spelling errors. Electronically signed by: Henri Chanel M.D. 06/15/2021 12:47 PM
--- NOTE | 2021-06-15 12:54 | CT Scan Report ---
CT OF THE ABDOMEN AND PELVIS WITHOUT CONTRAST CLINICAL HISTORY: Renal failure. Altered mental status. COMPARISON STUDY: CT of the abdomen and pelvis November 24, 2011. TECHNIQUE: Axial images of the abdomen and pelvis were obtained without IV contrast. Images were revi ewed in the axial, sagittal, and coronal planes. Automated exposure control was utilized for the forrest dy. A dose lowering technique was utilized adhering to the principles of ALARA. FINDINGS: Note is made of numerous solid noncalcified nodules within the lower lungs which are new si nce prior abdominal CT of November 24, 2011. Index right middle lobe nodule on image 45 of 486 measures 1.8 cm. Pacer leads are partially imaged. There is cardiomegaly. Evaluation of the abdomen and pelvis is suboptimal on this unenhanced examination. No pneumatosis, free air or portal venous gas is present. The liver is enlarged. There is probable hepatic steatosis. Lateral segment is enlarged. There is mi ld nodularity liver surface. No hepatic lesions are identified on this unenhanced exam. There is no b iliary ductal dilatation status post cholecystectomy. Unenhanced images of the spleen and adrenal gla nds are unremarkable. Note is made of a 6 mm left renal pelvis calculus. There is no hydronephrosis. There is a 7 mm right renal calculus. There are no ureteral calculi. There is an indeterminate 2.1 cm lesion within the lower pole the left kidney which measures above water attenuation. There is no gregg dence for a bowel obstruction. Colonic diverticulosis is noted without evidence for acute diverticuli tis. The appendix is normal. Moreno balloon within the bladder is noted. Fat-containing umbilical and ventral hernias are present. Sclerotic lesions within the T8 and L5 vertebral bodies are new since pr ior abdominal CT. IMPRESSION: 1. Numerous noncalcified solid pulmonary nodules within the lower lungs which are suspicious for meta static disease. Follow-up nonemergent chest CT is recommended as well as correlation with patient's o ncologic history. 2. Sclerotic lesions within the T8 and L5 vertebral bodies which are suspicious for metastases. 3. 6 mm left renal pelvis calculus. Right-sided nephrolithiasis. No hydronephrosis. No ureteral calcu li. 4. Hepatic steatosis and hepatomegaly. 5. Indeterminate 1 cm left renal lesion. This could reflect a hyperdense cyst or solid renal lesion. 6. Colonic diverticulosis without evidence for acute diverticulitis. ACT 112: Positive. There are findings on this exam that require communication between the performing entity and the patient following Patient Test Result Information Act ([place] Act 112) guidelines. Electronically signed by: Ye Moncada M.D. 06/15/2021 12:53 PM
[2021-06-15] MEDS ORDERED: SODIUM CHLORIDE 0.9% 500 ML IV ONE (13:18)
--- NOTE | 2021-06-15 13:47 | Hospitalist Progress Note ---
Date of Service June 15, 2021 Assessment & Plan (1) Acute respiratory failure with hypoxia: Plan: Acute hypoxic respiratory failure - CT-CS: No acute cervical spine fracture or subluxation. 7 mm left apical pulmonary nodule. Correlation with a nonemergent follow-up chest CT is recommended to assess for additional pulmonary nodules. - CT-A/P: Numerous noncalcified solid pulmonary nodules within the lower lungs which are suspicious for metastatic disease. Follow-up nonemergent chest CT is recommended as well as correlation with patient's oncologic history. Sclerotic lesions within the T8 and L5 vertebral bodies which are suspicious for metastases. 6 mm left renal pelvis calculus. Right-sided nephrolithiasis. No hydronephrosis. No ureteral calculi. Hepatic steatosis and hepatomegaly.. Indeterminate 1 cm left renal lesion. This could reflect a hyperdense cyst or solid renal lesion. Colonic diverticulosis without evidence for acute diverticulitis. - CT-H: No acute intracranial abnormality. Subcentimeter partially calcified lesion of the central berta is new from 10/22/2016. Considering the pulmonary lesions seen on the CT abdomen and pelvis study of same day, a metastatic focus is within the differential however would be atypical. Extra-axial lesion centered within the right cavernous sinus and middle cranial fossa suggestive of a meningioma redemonstrated. - CXR: Cardiomegaly with pulmonary vascular congestion and interstitial coarseni ng suggestive of pulmonary edema versus interstitial pneumonitis. - 37.7*H, COVID+, - WBC 4.26 - Hgb - VB.32/45/37 - K 6.5 - Cr 3.29 (1.73) - trop negative - CK ne - AST 159 (prior 145) - COVID POSITIVE - TTE 09/2018: LVEF 40-45% Nuclear stress test 12/03/2020: - Remote hx of breast cancer thought adequately treated - Febrile - Empiric rocephin for bacterial coverage CT chest pending COVID-19 positive Remdesivir not indicated due to GFR 15 Patient hypoxic but with elevated pro-[place] and febrile, no other Covid symptoms Steroids temporarily deferred No wheezing on exam Continue treatment as above (2) Acute renal failure: Plan: Acute renal failure Creatinine acutely elevated to 3.29 from prior normal baseline, slight uptrend in previous month Nephrotoxins held, Lasix held, DILLON held Nephrology consulted Received 500 cc bolus x2 in ER, continue IVF M as above and follow volume status BMP daily (3) Acute hyperkalemia: Plan: Hyperkalemia Patient nonoliguric, putting out urine but reduced in the last 24 hours With creatinine elevation to 3.29 from 1.73, Paced rhythm Veltassa, lactulose, insulin/dextrose, calcium gluconate given BMP every 6 hours Nephrology consulted for acute renal failure with hyperkalemia (4) Acute alteration in mental status: (5) Acute on chronic HFrEF (heart failure with reduced ejection fraction): Plan: Congestive heart failure with reduced ejection fraction EF 40-45% 2018 Furosemide 40 mg held for LOUISE, clinical volume depletion Patient intermittently hypotensive, appears volume overloaded Lasix held for LOUISE as noted Echo pending CT pending Not on beta-benjamín prior to admission, lisinopril held for LOUISE (6) Presence of cardiac pacemaker: (7) Pulmonary edema: Plan: -See above (8) History of breast cancer: Plan: Concern for metastatic lesions, history of breast cancer Sclerotic lessions on T8/L5, multiple pulmonary nodules in lower lung. Additionally subcentimeter partially calcified lesion of central betra new from 2017 Oncology consulted. Discussed with patient and family at bedside, they have seen both [facility] and [facility] in the past but would prefer to be seen here by davon Lopez oncologist for additional recommendations and evaluation. Patient is somnolent and hard of hearing, is not able to participate in meaningful risk/benefits and goals of care conversation at time of assessment. Patient will get hearing aids and also undergo supportive treatment as otherwise noted, and revisit. Palliative care consulted, discussed with family (9) Hypertension: Plan: Hypertension Lisinopril held for LOUISE -Hypotensive on admission (10) Hypothyroid: Plan: Hypothyroidism Continue Synthroid 150 mcg p.o. daily (11) Diabetes: Plan: Type 2 diabetes mellitus Metformin 1 g p.o. every afternoon held SSI Simvastatin 40 mg p.o. nightly Anxiety Continue venlafaxine 75 mg p.o. daily DVT prophylaxis: Heparin Diet: DM Inocente Root is a 70-year-old female with a past medical history of cardiomyopathy, osteoarthritis, cardiac pacemaker who presented with altered mental status. Has had fever in the last week and generalized weakness. On arrival to ER patient was noted to be hypoxic in the 70s. Remote hx of breast cancer s/p lumpectomy and radiation with Dr. Dominique and Dr. Hernadez. Weakness greatly increased in last week with some muscle jerking, weakness progressive for several weeks. Patient endorses fatigue, general feeling of unwellness. Feverish [employer]. Some fatigue, No chest pain, chest pressure. No leg swelling. Endorses some shortness of breath without difficulty breathing. Endorses history of pacer. History limited by hard of hearing and sedation, collateral taken from family who endorse progressive fatigue acutely worsened over 1 week. Endorses history of hypertension, diabetes, thyroid medication, and cardiac pacemaker. Medical History: Reviewed Medications: Reviewed.. Has only taken Synthroid today Surgical History: Reviewed Allergies: Reviewed. Mobic/Celebrix --> declined, bad sweats, dizziness Social History: No substances. Code Status: Disc w pt at bedside.DNR/DNI. Review of Systems Review of Systems: Limited by sedation and hard of hearing without hearing aids. Collateral from family. Endorses progressive weakness worsened in the last week, confusion. Intermittent nonproductive cough. No chest pain/chest pressure/nausea/vomiting/diarrhea. 10 point review systems negative otherwise except as noted in HPI. Physical Exam Physical Exam: General: Hard of hearing, appears ill but nontoxic. Somnolent. HEENT: Atraumatic, normocephalic. Pupils reactive to light. Extraocular move ments intact. Visual acuity and hearing grossly intact, although extremely hard of hearing without hearing aids. Pulm: Diminished, reduced air movement in left lower lobe with bibasilar crackles. Symmetrical chest rise. No increase work of breathing. No respiratory distress. Cardiac: RRR, -mrg. Radial pulses intact and symmetrical. Abdominal: Nontender, nondistended, soft. BS present. Extremities: Warm, dry. Veneer Drier Tailer strength intact and symmetrical. Bilateral pedal/ankle edema. Results & Data Results & Data ([facility]) Vital Signs (Past 12 Hours) Vital Signs Temp Pulse Pulse Resp BP BP Pulse Ox 06/15/21 12:31 37.7 C H 81 28 H 101/48 L 94 06/15/21 11:27 81 28 H 99 06/15/21 10:47 96 06/15/21 10:44 37.7 C H 84 28 H 99/54 L 96 PG Care Time/CCT Total # of Minutes Spent Total Time Spent with Patient: Total time spent is greater than 50% in coordination of care (as documented) at patient's floor/unit and/or counseling patient: Coding Level of Care Code 33703 Subseq Hosp Care Lvl 3 Diagnoses Acute respiratory failure with hypoxia J96.01 Acute renal failure N17.9 Acute renal failure type: unspecified Acute hyperkalemia E87.5 Acute alteration in mental status R41.82 Acute on chronic HFrEF (heart failure with reduced ejection fraction) I50.23 Presence of cardiac pacemaker Z95.0 Pulmonary edema J81.0 Chronicity: acute History of breast cancer Z85.3 Hypertension I10 Hypertension type: essential hypertension Hypothyroid E03.9 Diabetes E11.9 Diabetes mellitus type: type 2 Diabetes mellitus intermediate teacher insulin use: without intermediate teacher use Diabetes mellitus complication status: without complication (1) Acute renal failure Acute renal failure type: unspecified Qualified Code(s): N17.9 - Acute kidney failure, unspecified (2) Pulmonary edema Chronicity: acute Qualified Code(s): J81.0 - Acute pulmonary edema (3) Hypertension Hypertension type: essential hypertension Qualified Code(s): I10 - Essential (primary) hypertension (4) Diabetes Diabetes mellitus type: type 2 Diabetes mellitus senior living insulin use: without senior living use Diabetes mellitus complication status: without complication Qualified Code(s): E11.9 - Type 2 diabetes mellitus without complications
[2021-06-15] MEDS ORDERED: INSULIN HUMAN REGULAR PER UNIT 10 UNITS in SYRINGE 9.9 ML IV STA ×2 (14:37→20:45)
[2021-06-15] MEDS ORDERED: DEXTROSE 50% 50 ML SYRINGE IV STA ×2 (14:37→20:39)
[2021-06-15] MEDS ORDERED: PATIROMER CALCIUM SORBITEX 8.4 GM PACK PO SCH (15:29)
[2021-06-15] MEDS ORDERED: CALCIUM GLUCONATE 10% 1,000 MG in SODIUM CHLORIDE 0.9% 50 ML IV ONE (15:30)
[2021-06-15 16:26] LABS: BUN Creatinine Ratio 16.5 (10-20); Calcium 9.2 mg/dl (8.5-10.1); Creatinine Clr Calc Pharmacy 17.4 ml/min; Est GFR (African American) 16.1 ml/min; Est GFR (Non-African American) 13.9 ml/min; Potassium 6.4 mmol/L (3.5-5.1)
--- NOTE | 2021-06-15 17:58 | CT Scan Report ---
CT chest diagnostic wo con CLINICAL HISTORY: Hypoxia. Covid positive. Evaluate for possible underlying malignancy. COMPARISON STUDY: Portable chest from 06/15/2021 CT DOSE: 606.74 mGy.cm TECHNIQUE: Standard CT of the Chest was performed without IV contrast. A dose lowering technique was utilized adhering to the principles of ALARA. FINDINGS: Airway: The airway is clear. No endobronchial lesion is identified. Lungs: There are numerous noncalcified pulmonary nodules throughout both lungs ranging in size from 0 .5 to 2.5 cm. The lungs are clear of acute alveolar opacities, air bronchograms or pulmonary nodules. Mild chronic prominence of interstitial markings is also present bilaterally. Pleura: There is no evidence for pleural effusion. There is no evidence for pneumothorax. Mediastinum: There is no evidence for pathologic adenopathy on these limited noncontrast images. Hear t is mildly enlarged. There is extensive coronary artery calcification, mitral valve calcification an d aortic valve calcification. Cardiac pacer is in place. The thoracic aorta is within normal limits. Mild atelectatic calcifications also present. There is no evidence for pericardial effusion. Upper abdomen: There is hepatomegaly. Right adrenal gland is not included on this study. Left adrenal gland is within normal limits. There is a small hiatal hernia. Osseous structures: There is no acute osseous pathology. IMPRESSION: 1. Numerous noncalcified pulmonary nodules throughout both lungs characteristic of metastatic lung di sease. 2. Mild interstitial fibrotic changes are also present. 3. There is no acute chest disease on these noncontrast images. 4. No evidence for pathologic adenopathy. 5. Coronary artery calcification. 6. Hepatomegaly. 7. Additional nonacute findings as delineated above. ACT 112: Negative or not required by law. Electronically signed by: Rashaun Israel M.D. 06/15/2021 5:56 PM
[2021-06-15] MEDS ORDERED: ONDANSETRON INJ 2 MG/ML 2 ML VIAL IV PRN (18:13)
[2021-06-15] MEDS ORDERED: SODIUM CHLORIDE 0.45 % 1,000 ML IV SCH (18:13)
[2021-06-15] MEDS ORDERED: ACETAMINOPHEN 325 MG TAB PO PRN (18:13)
[2021-06-15 20:13] LABS: BUN Creatinine Ratio 15.6 (10-20); Calcium 9.1 mg/dl (8.5-10.1); Creatinine Clr Calc Pharmacy 17.3 ml/min; Est GFR (Non-African American) 13.8 ml/min; Potassium 6.2 mmol/L (3.5-5.1)
[2021-06-15] MEDS ORDERED: CALCIUM GLUCONATE 10% 1,000 MG in SODIUM CHLORIDE 0.9% 50 ML IV STA (20:41)
[2021-06-15] MEDS: dexAMETHasone 6 MG in SYRINGE 0 ML IV SCH (20:42)
[2021-06-15] MEDS: ENOXAPARIN INJ 40 MG/0.4 ML SYR SQ SCH (21:24)
[2021-06-15] MEDS: LACTULOSE SYRUP 30 GM/45 ML UDP PO SCH (21:24)
[2021-06-15 23:01] LABS: iSTAT Allen Test Pass; iSTAT Arterial Blood Gas HCO3 19 meg/L (19-24); iSTAT Arterial Blood Gas pCO2 40 mmHg (35-46); iSTAT Arterial Blood Gas pH 7.28 (7.35-7.45); iSTAT Arterial Blood Gas pO2 101 mmHg (80-95); iSTAT Carbon Dioxide 20 mmol/L (24-31); iSTAT Site L Radial
[2021-06-15] MEDS: SODIUM CHLORIDE 0.9% 1000ML 1,000 ML IV SCH (23:32)
[2021-06-16 00:45] LABS: BUN Creatinine Ratio 16.9 (10-20); Calcium 9.9 mg/dl (8.5-10.1); Creatinine Clr Calc Pharmacy 19.2 ml/min; Est GFR (African American) 18.2 ml/min; Est GFR (Non-African American) 15.7 ml/min; Potassium 5.8 mmol/L (3.5-5.1)
[2021-06-16 04:14] LABS: BUN Creatinine Ratio 18.6 (10-20); Creatinine Clr Calc Pharmacy 20.7 ml/min; Est GFR (African American) 19.9 ml/min; Est GFR (Non-African American) 17.2 ml/min; Potassium 5.9 mmol/L (3.5-5.1)
[2021-06-16] MEDS ORDERED: DEXTROSE 50% 50 ML SYRINGE IV STA (05:25)
[2021-06-16] MEDS ORDERED: INSULIN HUMAN REGULAR PER UNIT 10 UNITS in SYRINGE 9.9 ML IV STA (05:31)
[2021-06-16] MEDS: LEVOTHYROXINE SODIUM 150 MCG TABLET PO SCH (06:02)
[2021-06-16] MEDS ORDERED: DEXTROSE 50% 50 ML SYRINGE IV PRN (07:36)
[2021-06-16] MEDS ORDERED: GLUCOSE 10 TABS/TUBE PO PRN (07:36)
[2021-06-16] MEDS ORDERED: GLUCAGON FOR INJ 1 MG VIAL SQ PRN (07:36)
[2021-06-16] MEDS ORDERED: CARBOHYDRATES FOR HYPOGLYCEMIA PO PRN (07:36)
[2021-06-16] MEDS ORDERED: GLUCOSE 40% GEL 15 GM TUBE PO PRN (07:36)
[2021-06-16] MEDS: SODIUM CHLORIDE 0.9% 1000ML 1,000 ML IV SCH (08:11)
[2021-06-16] MEDS: INSULIN GLARGINE SOLOSTAR 100 UNITS/ML 3 ML PEN SC SCH ×2 (08:14→21:12)
[2021-06-16] MEDS: INSULIN ASPART 100 UNITS/ML 3 ML PEN SC SCH ×4 (08:14→21:12)
[2021-06-16 08:30] LABS: Basophils # (auto) 0.01 K/uL (0-0.2); Basophils % (auto) 0.3 %; Hematocrit (blood only) 32.4 % (37-47); Hemoglobin 10.5 g/dL (12.0-16.0); Immature Granulocytes # (auto) 0.01 K/uL (0.00-0.02); Immature Granulocytes % (auto) 0.3 %; Lymphocytes # (auto) 0.68 K/uL (1.2-3.4); Lymphocytes % (auto) 18.2 %; Mean Corpuscular Hemoglobin 32.7 pg (25-34); Mean Corpuscular Hgb Conc 32.4 g/dL (32-36); Mean Corpuscular Volume 100.9 fL (80-100); Mean Platelet Volume 8.8 fL (7.4-10.4); Monocytes # (auto) 0.27 K/uL (0.11-0.59); Monocytes % (auto) 7.2 %; Neutrophils # (auto) 2.77 K/uL (1.4-6.5); Platelet Count 170 K/uL (130-400); RDW Coefficient of Variation 13.8 % (11.5-14.5); RDW Standard Deviation 51.2 fL (36.4-46.3); Red Blood Count 3.21 M/uL (4.2-5.4); White Blood Count 3.74 K/uL (4.8-10.8)
[2021-06-16] MEDS: ENOXAPARIN INJ 40 MG/0.4 ML SYR SQ SCH (08:35)
[2021-06-16] MEDS: VENLAFAXINE HCL XR 75 MG CAPXR PO SCH (08:37)
[2021-06-16] MEDS: LACTULOSE SYRUP 30 GM/45 ML UDP PO SCH ×3 (08:37→20:28)
[2021-06-16 08:44] LABS: BUN Creatinine Ratio 18.5 (10-20); Calcium 9.7 mg/dl (8.5-10.1); Creatinine Clr Calc Pharmacy 22.4 ml/min; Est GFR (African American) 21.5 ml/min; Est GFR (Non-African American) 18.6 ml/min; Potassium 5.3 mmol/L (3.5-5.1)
--- NOTE | 2021-06-16 10:19 | Consultation Report ---
DATE OF SERVICE: 06/16/2021 REASON FOR CONSULT: Possible bone/lung metastasis. HISTORY OF PRESENT ILLNESS: Ms. Chan is a 70-year-old female with medical history significant for ER/RI positive breast cancer diagnosed in 2004, for which she is status post lumpectomy, adjuvant radiation treatment followed by 5 years of endocrine therapy with Arimidex under the care of Dr Hernadez at [facility]. She also has a medical history significant for osteoarthritis and cardiomyopathy for which she is status post cardiac pacemaker placement. She presented to the ED with worsening altered mental status. Most of the history was obtained from the patient's cnpoyony-ag-lgs (Skye) who happens to be a nurse. She states that over the past 6-8 months, the patient has declined functionally leading to multiple falls with noticeable decline in memory. Given worsening mental status, her PCP had obtained a CT head about 2 months ago, which was overall unrevealing. About 1 week, patient however became total care, requiring help from family members to perform ADLs. Her [id number] states that on Tuesday, she was noted to be lethargic and displaying involuntary muscle movements. She was also noted to be very sedated and difficult to communicate with. As a result of these symptoms, she was brought to the Emergency Department at [facility]. Labs obtained in the ED demonstrated macrocytic anemia. She was also found to have hyperkalemia with worsening in baseline kidney function. COVID-19 testing was positive. Imaging studies performed on admission had revealed a chest x-ray that revealed cardiomegaly with pulmonary vascular congestion and interstitial coarsening suggestive of pulmonary edema versus interstitial pneumonitis. Head CT revealed subcentimeter partially calcified lesion of the central berta, new from 10/22/2016 as well as extra-axial lesion centered within the right cavernous sinus and middle cranial fossa suggestive of a meningioma. CT chest performed on 06/15/2021 had revealed numerous noncalcified pulmonary nodules throughout both lungs characteristic of metastatic lung disease as well as mild interstitial fibrotic changes. CT abdomen and pelvis revealed numerous noncalcified solid pulmonary nodules within the lower lungs, suspicious for metastatic disease as well as sclerotic lesions within the T8 and L5 vertebral bodies also suggestive of metastasis. PAST MEDICAL HISTORY: 1. Meningioma. 2. Breast cancer, status post lumpectomy and adjuvant radiation treatment. 3. Diabetes mellitus type 2. 4. Hypercholesterolemia. 5. Hypertension. 6. Hypothyroidism. PAST SURGICAL HISTORY: 1. History of cholecystectomy. 2. History of partial mastectomy. 3. History of carpal tunnel surgery. MEDICATIONS PRIOR TO ADMISSION: 1. Furosemide 40 mg p.o. daily. 2. Gabapentin 300 mg p.o. t.i.d. 3. Glimepiride 4 mg p.o. daily. 4. Levothyroxine 150 mcg p.o. daily. 5. Lisinopril 10 mg p.o. daily. 6. Metformin 1000 mg p.o. daily. 7. Simvastatin 40 mg p.o. daily. 8. Venlafaxine 75 mg p.o. daily. 9. Ambien 10 mg p.o. daily. ALLERGIES: MELOXICAM. SOCIAL HISTORY: Noncontributory. FAMILY HISTORY: Noncontributory. REVIEW OF SYSTEMS: Unable to obtain from the patient. LABORATORY STUDIES: CBC obtained on 06/16/2021 significant for white cell count of 3.7, hemoglobin 10.5, hematocrit 32.4, MCV 100.9, platelet count 170,000. Chemistry significant for sodium 139, potassium 5.3, chloride 110, carbon dioxide 19, BUN 47, creatinine 2.53. IMAGING STUDIES: Chest x-ray obtained on 06/15/2021 revealed cardiomegaly with pulmonary vascular congestion and interstitial coarsening suggestive of pulmonary edema versus interstitial pneumonitis. Head CT on 06/15/2021 revealed: 1. No acute intracranial abnormality. 2. Subcentimeter partially calcified lesion of the central berta, is new from 10/22/2016. Considering the pulmonary lesions seen on CT, abdomen and pelvis study of the same day, metastatic focus is within the differential. 3. Extraaxial lesion centered within the right cavernous sinus and middle cranial fossa suggestive of meningioma redemonstrated. CT abdomen and pelvis on 06/15/2021: 1. Numerous noncalcified solid pulmonary nodules within the lower lungs, which are suspicious for metastatic disease. 2. Sclerotic lesions within the T8 and L5 vertebral bodies, which are suspicious for metastasis. 3. A 6 mm left renal pelvis calculus. 4. Hepatic steatosis and hepatomegaly. 5. Indeterminate 1 cm left renal lesion. 6. Colonic diverticulosis without evidence of acute diverticulitis. Cervical spine CT: 1. No acute cervical spine fracture or subluxation. 2. A 7 mm left apical pulmonary nodule. CT chest performed on 06/15/2021, impression: 1. Numerous noncalcified pulmonary nodules throughout both lungs characteristic of metastatic lung disease measuring in size 0.5-2.5 cm. 2. Mild interstitial fibrotic changes also present. 3. There is no acute chest disease on this noncontrast images. 4. No evidence of pathologic adenopathy. 5. Coronary artery calcification. 6. Hepatomegaly. IMPRESSION: 1. History of estrogen receptor positive breast cancer in 2004, status post lumpectomy and adjuvant radiation treatment followed by 5 years of Arimidex. 2. Altered mental status. 3. Poor performance status. 4. Multiple pulmonary nodules. 5. Bone lesions suspicious for metastasis. 6. Cardiomegaly. 7. Hepatomegaly. 8. COVID 19 infection A 70-year-old female with history of estrogen receptor positive breast cancer in remission since 2004 who presented with worsening altered mental status and was found to be COVID-[address] CAP imaging performed on admission was suggestive of metastatic lung and bone lesions. CT head also revealed possible lesion in central berta. Discussed my thoughts with the patient's dvvtnenu-is-jor, her son and over the phone. I explained to them that she would benefit from biopsy of lung lesion to establish diagnosis, primary pathology and receptor status which would determine treatment options. She would also benefit from PET-CT as well as brain MRI, which can both be done outpatient. Will plan to see back in clinic upon discharge from hospital PLAN: 1. Recommend CT-guided lung biopsy, PET-CT and brain MRI, which can all be performed as an outpatient when she has recovered from acute illness 2. She has mild macrocytic anemia for which she would benefit from B12 and folate studies. Thank you for this consult. Oncology will follow while the patient is in the hospital. Please feel free to call if you have any other questions. Job ID: [id number] [facility] CLINICJoel
[2021-06-16] MEDS ORDERED: PATIROMER CALCIUM SORBITEX 8.4 GM PACK PO SCH (11:00)
[2021-06-16 11:36] LABS: BUN Creatinine Ratio 18.9 (10-20); Calcium 9.6 mg/dl (8.5-10.1); Est GFR (African American) 23.4 ml/min; Est GFR (Non-African American) 20.2 ml/min; Potassium 5.2 mmol/L (3.5-5.1)
[2021-06-16] MEDS ORDERED: cefTRIAXone SODIUM 2,000 MG in DEXTROSE 5% 50 ML IV SCH (12:00)
--- NOTE | 2021-06-16 12:22 | Nephrology Consultation ---
Date of Consultation June 16, 2021 Assessment & Plan (1) Acute renal failure: * LOUISE due to COVID pneumonia, dehydration in the setting of DILLON inhibitor therapy * 06/15/[address] wo contrast: 6 mm L renal calculus, 7 mm R renal calculus. 2.1 cm lower pole L renal lesion. No hydronephrosis * Kidney function is improving w/ cautious hydration (Cr 3.2 --> 2.3), patient is nonoliguric * Continue to hold lisinopril, furosemide and metformin * Continue hydration w/ 0.9NS * Monitor PRP, UO * Will need follow up imaging of L kidney w/ contrast once patient has fully recovered from pneumonia and kidney function has normalized (2) Hyperkalemia: * KCl and DILLON inhibitor have been held * K is trending down following Veltassa therapy * Recommend stopping Veltassa following dose this am (3) Pneumonia due to COVID-19 virus: * On dexamethasone therapy History of Present Illness Reason for Consultation: LOUISE, hyperkalemia Attending Physician: Garry Marquez MD History of Present Illness Ms. Chan is a 70 year old white female who is seen at the request of the [facility] hospitalist service for evaluation of LOUISE, hyperkalemia. Medical records in the EMR were reviewed today and are summarized as follows: Ms. Chna has no prior h/o renal dysfunction. Her baseline Cr is 0.9. Her medical history is significant for AODM, HTN, cardiomyopathy, pacemaker placement, OA and hypothyroidism. She presented to the EMD yesterday for evaluation of confusion and recurrent falls. She was found to be hypoxemic w/ RA SaO2 70's. CXR revealed pulmonary edema vs. viral pneumonitis. COVID testing was +. Cr was 3.3 w/ K 6.5. ECG revealed a paced rhythm. Ms. Chan was admitted to the hospitalist service. Lisinopril, KCl, furosemide and metformin were held. Cautious hydration was provided and one dose of Veltassa administered. Allergies Allergy/AdvReac Type Severity Reaction Status Date / Time No Known Drug Allergies Allergy Verified 09/23/20 11:42 meloxicam [From Mobic] AdvReac Confusion, Verified 06/15/21 14:04 fevers, sweats Home Medications Medication Instructions Recorded Confirmed Type furosemide 40 mg tablet 40 mg PO DAILY 05/02/19 06/15/21 History gabapentin 300 mg capsule 300 mg PO TID 05/02/19 06/15/21 History glimepiride 4 mg tablet 4 mg PO QAM 05/02/19 06/15/21 History levothyroxine 150 mcg tablet 150 mcg PO DAILY 05/02/19 06/15/21 History lisinopril 10 mg tablet 10 mg PO DAILY 05/02/19 06/15/21 History metformin 1,000 mg tablet 1,000 mg PO QPM 05/02/19 06/15/21 History potassium chloride 10 mEq 10 meq PO BID 05/02/19 06/15/21 History capsule,extended release simvastatin 40 mg tablet 40 mg PO HS 05/02/19 06/15/21 History venlafaxine 75 mg capsule,extended 75 mg PO DAILY 05/02/19 06/15/21 History release 24 hr zolpidem 10 mg tablet 10 mg PO HS 05/02/19 06/15/21 History celecoxib 200 mg capsule (Celebrex) 200 mg PO DAILY PRN #10 cap 10/21/20 06/15/21 Rx Patient History Medical History Benign brain tumor meningioma Breast cancer s/p lumpectomy Diabetes Hypercholesteremia Hypertension Hypothyroid Surgical History History of carpal tunnel surgery History of cholecystectomy History of dilation and curettage History of lumpectomy History of parathyroid surgery Family History Father Pacemaker Social History Smoking Status: Never smoker Second Hand Exposure: No; Hx Alcohol Use: No Hx Substance Use: No Preferred Language: Slovak Communication Ability: Effective High School Business Teacher Required: No Beliefs That Will Affect Care: None marital status: Current Living Situation: Spouse Other Information That Helps Us Care for You: No Feels Safe at Home: Yes Assistive Devices: Walker Review of Systems Review of Systems: Unobtainable due to cognitive status Physical Exam Constitutional: + overweight; not in distress ENMT: Mouth: + dry oral mucous membranes Respiratory: Auscultation: + rales (at bases bilaterally) Cardiovascular: RRR, no murmur, no edema Gastrointestinal (Abdomen): normal bowel sounds, soft, nontender, no hepatosplenomegaly Skin: + turgor decreased Neurologic: awake Results & Data ([facility]) Vital Signs (Past 12 Hours) Vital Signs Temp Pulse Resp BP Pulse Ox 06/16/21 11:17 37.1 C 88 19 116/57 L 95 06/16/21 07:19 37.1 C 86 19 108/55 L 98 06/16/21 04:08 36.6 C 87 18 110/57 L 97 Laboratory Results Laboratory Tests 06/15/21 06/16/21 06/16/21 10:56 07:38 07:38 WBC 3.74 L Hgb 10.5 L Hct 32.4 L Plt Count 170 Sodium 139 Potassium 5.3 H Chloride 110 H Carbon Dioxide 19 L BUN 47 H Creatinine 2.53 H Glucose 229 H Calcium 9.7 Urine Color Yellow Urine Appearance Clear Urine pH 5.0 Ur Specific Girard 1.016 Urine Protein 1+ H Urine Glucose (UA) Negative Urine Blood Negative Urine Nitrite Negative Urine RBC (Auto) 5-10 H PG Care Time/CCT Total # of Minutes Spent Total Time Spent with Patient: Total time spent is greater than 50% in coordination of care (as documented) at patient's floor/unit and/or counseling patient: Coding Level of Care Code 52266 Inpt Consult Level 5 Diagnoses Pneumonia due to COVID-19 virus U07.1; J12.82 Acute renal failure N17.9 Acute renal failure type: unspecified Hyperkalemia E87.5 (1) Acute renal failure Acute renal failure type: unspecified Qualified Code(s): N17.9 - Acute kidney failure, unspecified
[2021-06-16] MEDS: FOLIC ACID 1 MG TAB PO SCH (18:59)
--- NOTE | 2021-06-16 19:00 | XCELERA ---
[id number]
--- NOTE | 2021-06-16 19:00 | Hospitalist Progress Note ---
Date of Service June 16, 2021 Assessment & Plan (1) Acute respiratory failure with hypoxia: Plan: Discussed care with patient's family by phone. CT chest relatively clear, no signs of pneumonia, antibiotics discontinued. Continue Covid treatment. Patient with metabolic acidosis in the setting of acute injury kidney and hyperkalemia on admission, improving with supportive care. Continuing steroids, Covid treatment and care, stopping Veltassa, continuing lactulose and trending BMP at this time. Patient was also seen by oncology today. Recommending CT- guided lung biopsy, PET/CT, and brain MRI all as outpatient. Patient with sclerotic lesions and pulmonary nodules with potential central berta intracranial lesion also suspicious for potential metastatic cancer, this was discussed with patient on admission but due to difficulty hearing and confusion in the setting of acute illness was understood by family but not the patient. Family requests that a family member be present when discussing the results and the patient likely has metastatic cancer when she is cognitively clear enough to understand this. Given her Covid positive status discussed with family that this was difficult as visitors are not allowed in the Covid room. Discussed with nursing supervisor loading. If patient requires continued stay in the Covid unit then her granddaughter Rhona (who is an ER nurse at this facility) could be at bedside in full PPE, or potentially be transferred to PP room in PCU to have another family member present. Acute hypoxic respiratory failure suspect 2/2 Covid pneumonia - CT-CS: No acute cervical spine fracture or subluxation. 7 mm left apical pulmonary nodule. Correlation with a nonemergent follow-up chest CT is recommended to assess for additional pulmonary nodules. - CT-A/P: Numerous noncalcified solid pulmonary nodules within the lower lungs which are suspicious for metastatic disease. Follow-up nonemergent chest CT is recommended as well as correlation with patient's oncologic history. Sclerotic lesions within the T8 and L5 vertebral bodies which are suspicious for metastases. 6 mm left renal pelvis calculus. Right-sided nephrolithiasis. No hydronephrosis. No ureteral calculi. Hepatic steatosis and hepatomegaly.. Indeterminate 1 cm left renal lesion. This could reflect a hyperdense cyst or solid renal lesion. Colonic diverticulosis without evidence for acute diverticulitis. - CT-H: No acute intracranial abnormality. Subcentimeter partially calcified lesion of the central berta is new from 10/22/2016. Considering the pulmonary lesions seen on the CT abdomen and pelvis study of same day, a metastatic focus is within the differential however would be atypical. Extra-axial lesion centered within the right cavernous sinus and middle cranial fossa suggestive of a meningioma redemonstrated. - CXR: Cardiomegaly with pulmonary vascular congestion and interstitial coarsening suggestive of pulmonary edema versus interstitial pneumonitis. - 37.7*H, COVID+, - WBC 4.26 - Hgb - VBG consistent with metabolic acidosis, gradually improving with support of LOUISE as below - K 6.5 - Cr 3.29 (1.73) - trop negative - CK ne - AST 159 (prior 145) - COVID POSITIVE - TTE 09/2018: LVEF 40-45% - Remote hx of breast cancer thought adequately treated - Febrile - Empiric rocephin for bacterial coverage CT chest1. Numerous noncalcified pulmonary nodules throughout both lungs characteristic of metastatic lung disease. Mild interstitial fibrotic changes are also present. There is no acute chest disease on these noncontrast images. No evidence for pathologic adenopathy. Coronary artery calcification. I actually saw him in the cafeteria today and told me did not recognize him as he looked more casual in a mask and like through me for second Hepatomegaly. Additional nonacute findings as delineated above. COVID-19 positive Remdesivir not indicated due to GFR 15 Patient hypoxic but with elevated pro-[place] and febrile, no other Covid symptoms Steroids temporarily deferred No wheezing on exam Continue treatment as above yet (2) Acute renal failure: Plan: Acute renal failure Creatinine acutely elevated to 3.29 from prior normal baseline, Cr 2.36 today Nephrotoxins held, Lasix held, DILLON held Nephrology consulted Received 500 cc bolus x2 in ER, continue IVFM as above and follow volume status BMP daily - Will require followup imaging of L kidney w/ contrast once recovered and renal function normalized (3) Acute hyperkalemia: Plan: Hyperkalemia Patient nonoliguric, putting out urine but reduced in the last 24 hours With creatinine elevation to 3.29 from 1.73. Renal function as above Paced rhythm Veltassa, lactulose, insulin/dextrose, calcium gluconate given on admit BMP every 6 hours - Continue lactulose, continue fluid support as needed. D/c veltassa (4) Acute alteration in mental status: (5) Acute on chronic HFrEF (heart failure with reduced ejection fraction): Plan: Congestive heart failure with reduced ejection fraction EF 40-45% 2018 Furosemide 40 mg held for LOUISE, clinical volume depletion Patient intermittently hypotensive, appears volume overloaded Lasix held for LOUISE as noted Echo pending CT as above Not on beta-benjamín prior to admission, lisinopril held for LOUISE (6) Presence of cardiac pacemaker: (7) Pulmonary edema: Plan: -See above (8) History of breast cancer: Plan: Concern for metastatic lesions, history of breast cancer Sclerotic lessions on T8/L5, multiple pulmonary nodules in lower lung. Additionally subcentimeter partially calcified lesion of central berta new from 2017 Oncology consulted. On admission discussed with patient and family at bedside, they have seen both [facility] and [facility] in the past but would prefer to be seen here by davon Lopez oncologist for additional recommendations and evaluation. Patient is somnolent and hard of hearing, is not able to participate in meaningful risk/benefits and goals of care conversation at time of assessment. Patient will get hearing aids and also undergo supportive treatment as otherwise noted, and revisit. - See above for additional family discussion. - Onc recommending outpt biopsy, PET scan, MRI-H. (9) Hypertension: Plan: Hypertension Lisinopril held for LOUISE -Hypotensive on admission (10) Hypothyroid: Plan: Hypothyroidism Continue Synthroid 150 mcg p.o. daily (11) Diabetes: Plan: Type 2 diabetes mellitus Metformin 1 g p.o. every afternoon held SSI Simvastatin 40 mg p.o. nightly Anxiety Continue venlafaxine 75 mg p.o. daily DVT prophylaxis: Heparin Diet: DM Admission and Anticipated Discharge Date Admission Date: June 15, 2021 Subjective Patient seen at bedside. Oriented to name, season. Usually thinks in [facility], easily redirectable. Reports she feels tired, denies shortness of breath at bedside. Some inattention requiring redirection. Discussed care with patient's family by phone as well. CT chest relatively clear, no signs of pneumonia, antibiotics discontinued. Continue Covid treatment. Patient with metabolic acidosis in the setting of acute injury kidney and hyperkalemia on admission, improving with supportive care. Continuing steroids, Covid treatment and care, stopping Veltassa, continuing lactulose and trending BMP at this time. Patient was also seen by oncology today. Recommending CT-guided lung biopsy, PET/CT, and brain MRI all as outpatient. Patient with sclerotic lesions and pulmonary nodules with potential central berta intracranial lesion also suspicious for potential metastatic cancer, this was discussed with patient on admission but due to difficulty hearing and confusion in the setting of acute illness was understood by family but not the patient. Family requests that a family member be present when discussing the results and the patient likely has metastatic cancer when she is cognitively clear enough to understand this. Given her Covid positive status discussed with family that this was difficult as visitors are not allowed in the Covid room. Discussed with nursing supervisor loading. If patient requires continued stay in the Covid unit then her granddaughter Rhona (who is an ER nurse at this facility) could be at bedside in full PPE, or potentially be transferred to PP room in PCU to have another family member present. Review of Systems Review of Systems: Patient fatigue, review somewhat limited by cognitive status but grossly denies shortness of breath, difficulty breathing, chest pain, chest pressure, numbness, tingling, lightheadedness, dizziness, abdominal pain, general pain, rash, headache, vision change, hearing change. No cough this morning. Physical Exam Physical Exam: General: Oriented to name and season. Appears fatigued, but nontoxic. HEENT: Atraumatic, normocephalic. Pulm: CTAB A&P. -wheezes, -rales, -rhonchi. Symmetrical chest rise. No increase work of breathing. No respiratory distress. Cardiac: RRR, -mrg. Radial pulses intact and symmetrical. Abdominal: Nontender, nondistended, soft. BS present. Results & Data Results & Data ([facility]) Vital Signs (Past 12 Hours) Vital Signs Temp Pulse Resp BP Pulse Ox 06/16/21 15:06 36.5 C 87 20 105/54 L 95 06/16/21 11:17 37.1 C 88 19 116/57 L 95 06/16/21 07:19 37.1 C 86 19 108/55 L 98 PG Care Time/CCT Total # of Minutes Spent Total Time Spent with Patient: Total time spent is greater than 50% in coordination of care (as documented) at patient's floor/unit and/or counseling patient: Coding Level of Care Code 48539 Subseq Hosp Care Lvl 3 Diagnoses Acute respiratory failure with hypoxia J96.01 Acute renal failure N17.9 Acute renal failure type: unspecified Acute hyperkalemia E87.5 Acute alteration in mental status R41.82 Acute on chronic HFrEF (heart failure with reduced ejection fraction) I50.23 Presence of cardiac pacemaker Z95.0 Pulmonary edema J81.0 Chronicity: acute History of breast cancer Z85.3 Hypertension I10 Hypertension type: essential hypertension Hypothyroid E03.9 Diabetes E11.9 Diabetes mellitus type: type 2 Diabetes mellitus longterm insulin use: without manager terminal use Diabetes mellitus complication status: without complication (1) Acute renal failure Acute renal failure type: unspecified Qualified Code(s): N17.9 - Acute kidney failure, unspecified (2) Pulmonary edema Chronicity: acute Qualified Code(s): J81.0 - Acute pulmonary edema (3) Hypertension Hypertension type: essential hypertension Qualified Code(s): I10 - Essential (primary) hypertension (4) Diabetes Diabetes mellitus type: type 2 Diabetes mellitus longterm insulin use: without manager terminal use Diabetes mellitus complication status: without complication Qualified Code(s): E11.9 - Type 2 diabetes mellitus without complications
[2021-06-16] MEDS: dexAMETHasone 6 MG in SYRINGE 0 ML IV SCH (20:28)
[2021-06-17] MEDS: LEVOTHYROXINE SODIUM 150 MCG TABLET PO SCH (05:45)
--- NOTE | 2021-06-17 06:23 | Electrocardiogram Report ---
Test Reason : Blood Pressure : / mmHG Vent. Rate : 086 BPM Atrial Rate : 086 BPM P-R Int : 174 ms QRS Dur : 214 ms QT Int : 458 ms P-R-T Axes : 049 -71 080 degrees QTc Int : 548 ms Atrial-sensed ventricular-paced rhythm Abnormal ECG When compared with ECG of 02-MAY-2019 17:08, Ventricular pacing is now present Confirmed by Antwan Motta ([id number]) on 06/17/2021 6:22:59 AM Referred By: SELF Confirmed By:Antwan Motta
[2021-06-17] MEDS ORDERED: Influenza Vaccine-High Dose (Fluzone-HD) PF 65+ 0.7 ML SYR IM ONE (07:30)
[2021-06-17] MEDS ORDERED: PNEUMOCOCCAL Polysaccharide Vaccine 25mcg/0.5mL vial/Syr IM ONE (07:30)
[2021-06-17 07:43] LABS: Hematocrit (blood only) 32.8 % (37-47); Hemoglobin 10.6 g/dL (12.0-16.0); Immature Granulocytes # (auto) 0.01 K/uL (0.00-0.02); Immature Granulocytes % (auto) 0.2 %; Lymphocytes # (auto) 0.87 K/uL (1.2-3.4); Lymphocytes % (auto) 13.5 %; Mean Corpuscular Hemoglobin 32.4 pg (25-34); Mean Corpuscular Hgb Conc 32.3 g/dL (32-36); Mean Corpuscular Volume 100.3 fL (80-100); Mean Platelet Volume 8.8 fL (7.4-10.4); Monocytes # (auto) 0.49 K/uL (0.11-0.59); Monocytes % (auto) 7.6 %; Neutrophils # (auto) 5.08 K/uL (1.4-6.5); Neutrophils % (auto) 78.7 %; Platelet Count 173 K/uL (130-400); RDW Coefficient of Variation 13.9 % (11.5-14.5); Red Blood Count 3.27 M/uL (4.2-5.4); White Blood Count 6.45 K/uL (4.8-10.8)
[2021-06-17 08:12] LABS: Calcium 9.6 mg/dl (8.5-10.1); Creatinine Clr Calc Pharmacy 34.2 ml/min; Est GFR (African American) 36.9 ml/min; Est GFR (Non-African American) 31.8 ml/min; Potassium 5.3 mmol/L (3.5-5.1)
[2021-06-17] MEDS: INSULIN ASPART 100 UNITS/ML 3 ML PEN SC SCH ×4 (08:30→21:18)
[2021-06-17] MEDS: THIAMINE HCL 100 MG TAB PO SCH (08:33)
[2021-06-17] MEDS: LACTULOSE SYRUP 30 GM/45 ML UDP PO SCH ×3 (08:33→20:02)
[2021-06-17] MEDS: ENOXAPARIN INJ 40 MG/0.4 ML SYR SQ SCH (08:33)
[2021-06-17] MEDS: FOLIC ACID 1 MG TAB PO SCH (08:34)
[2021-06-17] MEDS: VENLAFAXINE HCL XR 75 MG CAPXR PO SCH (08:34)
[2021-06-17] MEDS ORDERED: SODIUM CHLORIDE 0.9% 1000ML 1,000 ML IV SCH (08:45)
[2021-06-17] MEDS: INSULIN GLARGINE SOLOSTAR 100 UNITS/ML 3 ML PEN SC SCH ×2 (09:51→21:19)
--- NOTE | 2021-06-17 09:54 | Nephrology Progress Note ---
Date of Service June 17, 2021 Assessment & Plan (1) Acute renal failure: Plan: * LOUISE due to COVID pneumonia, dehydration in the setting of DILLON inhibitor therapy * 06/15/[address] wo contrast: 6 mm L renal calculus, 7 mm R renal calculus. 2.1 cm lower pole L renal lesion. No hydronephrosis * Kidney function is improving w/ cautious hydration (Cr 3.2 --> 1.6; baseline 0.9), patient is nonoliguric * Continue to hold lisinopril, furosemide and metformin * Will provide 1L IV HCO3 solution to help correct acidemia and hyperkalemia * Monitor PRP, UO * Will need follow up imaging of L kidney w/ contrast once patient has fully recovered from pneumonia and kidney function has normalized (2) Hyperkalemia: Plan: * KCl and DILLON inhibitor have been held * Will provide one dose Patiromer and change to HCO3 solution to help correct serum potassium (3) Pneumonia due to COVID-19 virus: Plan: * On dexamethasone therapy Admission and Anticipated Discharge Date Admission Date: June 15, 2021 Subjective Ms. Chan was evaluated in her hospital room this morning. She was breathing comfortably on O2 at 4L/min NC. She voiced no new medical concerns. Review of Systems Review of Systems: Unobtainable due to cognitive status Physical Exam Constitutional: + overweight; not in distress ENMT: Mouth: + dry oral mucous membranes Respiratory: Auscultation: + rales (at bases bilaterally) Cardiovascular: RRR, no murmur, no edema Gastrointestinal (Abdomen): normal bowel sounds, soft, nontender, no hepatosplenomegaly Skin: + turgor decreased Neurologic: awake Results & Data ([facility]) Vital Signs (Past 12 Hours) Vital Signs Temp Pulse Pulse Resp BP Pulse Ox 06/17/21 07:06 36.9 C 84 19 118/65 96 06/17/21 03:47 36.8 C 69 17 127/59 L 98 06/16/21 23:59 81 06/16/21 22:58 36.9 C 79 16 123/52 L 98 Laboratory Results Laboratory Tests 06/17/21 06/17/21 07:26 07:26 WBC 6.45 Hgb 10.6 L Hct 32.8 L Plt Count 173 Sodium 141 Potassium 5.3 H Chloride 114 H Carbon Dioxide 17 L BUN 42 H Creatinine 1.62 H D Glucose 196 H PG Care Time/CCT Total # of Minutes Spent Total Time Spent with Patient: Total time spent is greater than 50% in coordination of care (as documented) at patient's floor/unit and/or counseling patient: Coding Level of Care Code 05600 Subseq Hosp Care Lvl 3 Diagnoses Acute renal failure N17.9 Acute renal failure type: unspecified Hyperkalemia E87.5 Pneumonia due to COVID-19 virus U07.1; J12.82 (1) Acute renal failure Acute renal failure type: unspecified Qualified Code(s): N17.9 - Acute kidney failure, unspecified
[2021-06-17] MEDS ORDERED: SODIUM BICARBONATE 8.4% 150 MEQ in WATER, STERILE 1,000 ML IV SCH (10:00)
[2021-06-17] MEDS ORDERED: PATIROMER CALCIUM SORBITEX 8.4 GM PACK PO ONE (10:03)
--- NOTE | 2021-06-17 14:14 | Hospitalist Progress Note ---
Date of Service June 17, 2021 Assessment & Plan (1) Acute respiratory failure with hypoxia: Plan: Visitation/goals of CARE note: Discussed care with patient's family by phone. CT chest relatively clear, no signs of pneumonia, antibiotics discontinued. Continue Covid treatment. Patient with metabolic acidosis in the setting of acute injury kidney and hyperkalemia on admission, improving with supportive care. Continuing steroids, Covid treatment and care, stopping Veltassa, continuing lactulose and trending BMP at this time. Patient was also seen by oncology today. Recommending CT-guided lung biopsy, PET/CT, and brain MRI all as outpatient. Patient with sclerotic lesions and pulmonary nodules with potential central berta intracranial lesion also suspicious for potential metastatic cancer, this was discussed with patient on admission but due to di fficulty hearing and confusion in the setting of acute illness was understood by family but not the patient. Family requests that a family member be present when discussing the results and the patient likely has metastatic cancer when she is cognitively clear enough to understand this. Given her Covid positive status discussed with family that this was difficult as visitors are not allowed in the Covid room. Discussed with nursing production supervisor trainee. If patient requires continued stay in the Covid unit then her granddaughter Rhona (who is an ER nurse at this facility) could be at bedside in full PPE, or potentially be transferred to SAP ANALYST room in PCU to have another family member present. 06/17 patient has not been able to be transferred to a personal room, plan to have discussion regarding likely metastatic cancer at bedside with Rhona present as above this afternoon. Acute hypoxic respiratory failure suspect 2/2 Covid pneumonia - CT-CS: No acute cervical spine fracture or subluxation. 7 mm left apical pulmonary nodule. Correlation with a nonemergent follow-up chest CT is recommended to assess for additional pulmonary nodules. - CT-A/P: Numerous noncalcified solid pulmonary nodules within the lower lungs which are suspicious for metastatic disease. Follow-up nonemergent chest CT is recommended as well as correlation with patient's oncologic history. Sclerotic lesions within the T8 and L5 vertebral bodies which are suspicious for metastases. 6 mm left renal pelvis calculus. Right-sided nephrolithiasis. No hydronephrosis. No ureteral calculi. Hepatic steatosis and hepatomegaly.. Indeterminate 1 cm left renal lesion. This could reflect a hyperdense cyst or solid renal lesion. Colonic diverticulosis without evidence for acute diverticulitis. - CT-H: No acute intracranial abnormality. Subcentimeter partially calcified lesion of the central berta is new from 10/22/2016. Considering the pulmonary lesions seen on the CT abdomen and pelvis study of same day, a metastatic focus is within the differential however would be atypical. Extra-axial lesion centered within the right cavernous sinus and middle cranial fossa suggestive of a meningioma redemonstrated. - CXR: Cardiomegaly with pulmonary vascular congestion and interstitial coarsening suggestive of pulmonary edema versus interstitial pneumonitis. - 37.7*H, COVID+, - WBC 4.26 on admission - Hgb stable - VBG consistent with metabolic acidosis, gradually improving with support of LOUISE as below - K 6.5 on admission, management as below - Cr 3.29 on admission, downtrending 1.60 06/17. - trop negative - CK neg - AST 159 (prior 145). Trended. - COVID POSITIVE - TTE 09/2018: LVEF 40-45% - Remote hx of breast cancer thought adequately treated - Febrile on admission, afebrile presently - Empiric rocephin for bacterial coverage on admission, discontinued given CT results CT chest1. Numerous noncalcified pulmonary nodules throughout both lungs characteristic of metastatic lung disease. Mild interstitial fibrotic changes are also present. There is no acute chest disease on these noncontrast images. No evidence for pathologic adenopathy. Coronary artery calcification. Hepatomegaly. Additional nonacute findings as delineated above. COVID-19 positive Remdesivir not indicated due to GFR 15 Patient hypoxic but with elevated pro-[place] and febrile, no other Covid symptoms Decadron 6 mg IV daily No wheezing on exam Continue treatment as above yet (2) Acute renal failure: Plan: Acute renal failure Creatinine acutely elevated to 3.29 from prior normal baseline, creatinine downtrending Nephrotoxins held, Lasix held, DILLON held Nephrology consulted. Received 500 cc bolus x2 in ER Fluid switch to bicarb, additional one-time Veltassa given as below BMP daily - Will require followup imaging of L kidney w/ contrast once recovered and renal function normalized (3) Acute hyperkalemia: Plan: Hyperkalemia Patient nonoliguric, putting out urine but reduced in the last 24 hours With creatinine elevation to 3.29 from 1.73. Renal function as above Paced rhythm Veltassa, lactulose, insulin/dextrose, calcium gluconate given on admit Fluid switch to bicarb, additional one-time Veltassa given - Continue lactulose (4) History of breast cancer: Plan: Concern for metastatic lesions, history of breast cancer Sclerotic lessions on T8/L5, multiple pulmonary nodules in lower lung. Additionally subcentimeter partially calcified lesion of central berta new from 2017 Oncology consulted. On admission discussed with patient and family at bedside, they have seen both [facility] and [facility] in the past but would prefer to be seen here by davon Lopez oncologist for additional recommendations and evaluation. Patient is somnolent and hard of hearing, is not able to participate in meaningful risk/benefits and goals of care conversation at time of assessment. Patient will get hearing aids and also undergo supportive treatment as otherwise noted, and revisit. - See above for additional family discussion. - Onc recommending outpt biopsy, PET scan, MRI-H. (5) Acute alteration in mental status: Plan: With some waxing and waning hospital delirium ? Metabolic encephalopathy of acute illness from Covid versus underlying encephalopathy 2/2 possible intracranial metastasis Somewhat improved today, continue to follow clinically with treatment as above Patient receiving dexamethasone for Covid (6) Acute on chronic HFrEF (heart failure with reduced ejection fraction): Plan: Congestive heart failure with reduced ejection fraction EF 40-45% 2018 Furosemide 40 mg held for LOUISE, clinical volume depletion Patient intermittently hypotensive, appears volume overloaded Lasix held for LOUISE as noted Echo pending CT as above Not on beta-benjamín prior to admission, lisinopril held for LOUISE (7) Presence of cardiac pacemaker: (8) Pulmonary edema: Plan: -See above (9) Hypertension: Plan: Hypertension Lisinopril held for LOUISE -Hypotensive on admission (10) Hypothyroid: Plan: Hypothyroidism Continue Synthroid 150 mcg p.o. daily (11) Diabetes: Plan: Type 2 diabetes mellitus Metformin 1 g p.o. every afternoon held SSI Simvastatin 40 mg p.o. nightly (12) Anxiety: Plan: Anxiety Continue venlafaxine 75 mg p.o. daily Plan: DVT prophylaxis: Dose adjusted Lovenox Diet: DM Admission and Anticipated Discharge Date Admission Date: June 15, 2021 Subjective Seen at the bedside this morning. Waxing and waning cognitive status with some confusion and short attention per nursing staff and her family who have also talked her via the phone. Per family she seemed somewhat confused last night, but then had a conversation by phone an hour later where she seemed completely at her baseline and cognitively intact. Had also talked to Ivett this morning and she seemed to understand what was being said and near normal, if slightly forgetful. At bedside Ivett is oriented roughly to time of year, "must be June because we were preparing for Thanksgiving when I came in "place, and name but not date or day of week. Ivett reports that she would like to be home, and would like to get home soon as possible although she is appreciative of care received in the hospital. Discussed that would like to get her home soon as possible, however her hyperkalemia and oxygen requirement with Covid are currently letter keeping her in the hospital. Discussed management plan and potential discharge directory, patient amenable to this. Patient reports that at this time she feels close to her normal baseline, but also recognizes that she is on oxygen which she does not normally use at home. Updated family by phone, daughter Eric will be here this afternoon to be at bedside for discussion regarding metastatic cancer, see prior note regarding this. Review of Systems Review of Systems: All systems reviewed & are unremarkable except as noted in Subjective Physical Exam Physical Exam: General: Oriented to name and season. Appears fatigued, but nontoxic. HEENT: Atraumatic, normocephalic. Pulm: CTAB A&P. -wheezes, -rales, -rhonchi. Symmetrical chest rise. No increase work of breathing. No respiratory distress. Cardiac: RRR, -mrg. Radial pulses intact and symmetrical. Abdominal: Nontender, nondistended, soft. BS present. Results & Data Results & Data ([facility]) Vital Signs (Past 12 Hours) Vital Signs Temp Pulse Resp BP Pulse Ox Pulse Ox Pulse Ox 06/17/21 12:37 36.4 C L 81 20 136/58 L 96 06/17/21 11:01 95 06/17/21 11:00 94 06/17/21 07:06 36.9 C 84 19 118/65 96 06/17/21 03:47 36.8 C 69 17 127/59 L 98 PG Care Time/CCT Total # of Minutes Spent Total Time Spent with Patient: Total time spent is greater than 50% in coordination of care (as documented) at patient's floor/unit and/or counseling patient: Coding Level of Care Code 63383 Subseq Hosp Care Lvl 3 Diagnoses Acute respiratory failure with hypoxia J96.01 Acute renal failure N17.9 Acute renal failure type: unspecified Acute hyperkalemia E87.5 Acute alteration in mental status R41.82 Acute on chronic HFrEF (heart failure with reduced ejection fraction) I50.23 Presence of cardiac pacemaker Z95.0 Pulmonary edema J81.0 Chronicity: acute History of breast cancer Z85.3 Hypertension I10 Hypertension type: essential hypertension Hypothyroid E03.9 Diabetes E11.9 Diabetes mellitus type: type 2 Diabetes mellitus adjunct faculty for medical 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 insulin use: without mcfp use Diabetes mellitus complication status: without complication Anxiety F41.9 (1) Acute renal failure Acute renal failure type: unspecified Qualified Code(s): N17.9 - Acute kidney failure, unspecified (2) Pulmonary edema Chronicity: acute Qualified Code(s): J81.0 - Acute pulmonary edema (3) Hypertension Hypertension type: essential hypertension Qualified Code(s): I10 - Essential (primary) hypertension (4) Diabetes Diabetes mellitus type: type 2 Diabetes mellitus mcfp insulin use: without adjunct faculty for medical terminology use Diabetes mellitus complication status: without complication Qualified Code(s): E11.9 - Type 2 diabetes mellitus without complications
[2021-06-17] MEDS: dexAMETHasone 6 MG in SYRINGE 0 ML IV SCH (20:02)
[2021-06-18] MEDS: LEVOTHYROXINE SODIUM 150 MCG TABLET PO SCH (04:37)
[2021-06-18] MEDS: ENOXAPARIN INJ 40 MG/0.4 ML SYR SQ SCH ×2 (08:23→20:17)
[2021-06-18] MEDS: LACTULOSE SYRUP 30 GM/45 ML UDP PO SCH ×3 (08:24→20:18)
[2021-06-18] MEDS: VENLAFAXINE HCL XR 75 MG CAPXR PO SCH (08:24)
[2021-06-18] MEDS: FOLIC ACID 1 MG TAB PO SCH (08:24)
[2021-06-18] MEDS: THIAMINE HCL 100 MG TAB PO SCH (08:24)
[2021-06-18 08:31] LABS: BUN Creatinine Ratio 33.3 (10-20); Calcium 9.1 mg/dl (8.5-10.1); Creatinine Clr Calc Pharmacy 41.8 ml/min; Est GFR (African American) 47.7 ml/min; Est GFR (Non-African American) 41.1 ml/min; Potassium 4.9 mmol/L (3.5-5.1)
[2021-06-18] MEDS: INSULIN ASPART 100 UNITS/ML 3 ML PEN SC SCH ×4 (09:32→20:17)
[2021-06-18] MEDS: INSULIN GLARGINE SOLOSTAR 100 UNITS/ML 3 ML PEN SC SCH ×2 (09:33→21:33)
--- NOTE | 2021-06-18 11:27 | Nephrology Progress Note ---
Date of Service June 18, 2021 Assessment & Plan (1) Acute renal failure: (2) Acute respiratory failure with hypoxia: (3) Hypertension: (4) Hyperkalemia: Plan: LOUISE the setting of dehydration above, admitted with copied into pneumonia and decreased p.o. intake. Had baseline has normal renal function, baseline creatinine 0.9, a creatinine was 3.3 on admission improved and down to 1.3 this morning. Electrolyte acceptable. Blood pressure, volume status acceptable. Overall clinically doing much better. -- Expect renal function to continue to improve, try to maintain positive fluid balance, encourage increased p.o. intake. Continue to monitor renal function electrolyte while inpatient. will sign off Admission and Anticipated Discharge Date Admission Date: June 15, 2021 Subjective Ivett was seen and examined in her room this morning. Overall she has been feeling well, denies any further shortness of breath or chest pain. Feels thirsty. Renal function continues to improve, creatinine down to 1.3. Blood pressure well controlled. Volume status acceptable. Review of Systems Review of Systems: Detailed review of system was otherwise unremarkable. Physical Exam Constitutional: WD/WN, vitals as above + ill appearing and + morbidly obese; no acute distress Eyes: + anicteric sclerae ENMT: Ears: no hearing impairment and no external ear abnormality Nose: nasal mucous membranes not dry Neck: normal visual inspection Respiratory: normal respiratory effort; no respiratory distress Auscultation: lungs clear to auscultation bilaterally Cardiovascular: Rate/Rhythm: regular rate and regular rhythm Heart Sounds: normal S1 and normal S2 Extremities: no edema Skin: normal turgor; no rashes Neurologic: no focal motor deficits and not confused Psychiatric: Orientation: alert and oriented x 3 Results & Data ([facility]) Vital Signs (Past 12 Hours) Vital Signs Temp Pulse Pulse Resp BP Pulse Ox 06/18/21 07:30 36.4 C L 62 18 133/77 95 06/18/21 06:56 36.4 C L 82 19 121/64 96 06/18/21 04:02 36.5 C 88 20 138/66 97 06/17/21 23:59 85 06/17/21 23:27 36.5 C 89 20 122/64 96 PG Care Time/CCT Total # of Minutes Spent Total Time Spent with Patient: Total time spent is greater than 50% in coordination of care (as documented) at patient's floor/unit and/or counseling patient: Coding Level of Care Code 75551 Subseq Hosp Care Lvl 2 Diagnoses Acute renal failure N17.9 Acute renal failure type: unspecified Acute respiratory failure with hypoxia J96.01 Hypertension I10 Hypertension type: essential hypertension Hyperkalemia E87.5 (1) Acute renal failure Acute renal failure type: unspecified Qualified Code(s): N17.9 - Acute kidney failure, unspecified (2) Hypertension Hypertension type: essential hypertension Qualified Code(s): I10 - Essential (primary) hypertension
--- NOTE | 2021-06-18 12:22 | Hospitalist Progress Note ---
Date of Service June 18, 2021 Assessment & Plan (1) Acute respiratory failure with hypoxia: Plan: Social: Discussed care with patient's family by phone. CT chest relatively clear, no signs of pneumonia, antibiotics discontinued. Continue Covid treatment. [place] ent with metabolic acidosis in the setting of acute injury kidney and hyperkalemia on admission, improving with supportive care. Continuing steroids, Covid treatment and care, stopping Veltassa, continuing lactulose and trending BMP at this time. Patient was also seen by oncology today. Recommending CT- guided lung biopsy, PET/CT, and brain MRI all as outpatient. Patient with sclerotic lesions and pulmonary nodules with potential central berta intracranial lesion also suspicious for potential metastatic cancer, this was discussed with patient on admission but due to difficulty hearing and confusion in the setting of acute illness was understood by family but not the patient. 06/18: Care discussed with family, concern for significant alteration in mental status in the last week from her prior baseline. Discussed CT findings, and mild mass-effect of meningioma which was known and reportedly stable. No cerebral edema or brainstem edema/mass-effect is appreciated. Will follow up wi th MRIbrain, kidney status improving and near normal with neurology input. Will discuss with patient's family, would like to continue with evaluation, recognize that goals of care are both for her to get stronger and be more independent towards her previous baseline but also to return home and not go to rehab so that she can be with her . Acute hypoxic respiratory failure suspect 2/2 Covid pneumonia - CT-CS: No acute cervical spine fracture or subluxation. 7 mm left apical pulmonary nodule. Correlation with a nonemergent follow-up chest CT is recommended to assess for additional pulmonary nodules. - CT-A/P: Numerous noncalcified solid pulmonary nodules within the lower lungs which are suspicious for metastatic disease. Follow-up nonemergent chest CT is recommended as well as correlation with patient's oncologic history. Sclerotic lesions within the T8 and L5 vertebral bodies which are suspicious for metastases. 6 mm left renal pelvis calculus. Right-sided nephrolithiasis. No hydronephrosis. No ureteral calculi. Hepatic steatosis and hepatomegaly.. Indeterminate 1 cm left renal lesion. This could reflect a hyperdense cyst or solid renal lesion. Colonic diverticulosis without evidence for acute diverticulitis. - CT-H: No acute intracranial abnormality. Subcentimeter partially calcified lesion of the central berta is new from 10/22/2016. Considering the pulmonary lesions seen on the CT abdomen and pelvis study of same day, a metastatic focus is within the differential however would be atypical. Extra-axial lesion centered within the right cavernous sinus and middle cranial fossa suggestive of a meningioma redemonstrated. - CXR: Cardiomegaly with pulmonary vascular congestion and interstitial coarsening suggestive of pulmonary edema versus interstitial pneumonitis. - 37.7*H, COVID+, on admission - WBC 4.26 on admission - Hgb stable - VBG consistent with metabolic acidosis, gradually improving with support of LOUISE as below - K 6.5 on admission, management as below - Cr 3.29 on admission, downtrending 1.60 06/17. - trop negative - CK neg - AST 159 (prior 145). Trended. - COVID POSITIVE - TTE 09/2018: LVEF 40-45% - Remote hx of breast cancer thought adequately treated - Febrile on admission, remains afebrile - Empiric rocephin for bacterial coverage on admission, discontinued given CT results CT chest1. Numerous noncalcified pulmonary nodules throughout both lungs characteristic of metastatic lung disease. Mild interstitial fibrotic changes are also present. There is no acute chest disease on these noncontrast images. No evidence for pathologic adenopathy. Coronary artery calcification. Hepatomegaly. Additional nonacute findings as delineated above. COVID-19 positive Remdesivir not indicated due to GFR 15 Patient hypoxic but with elevated pro-[place] and febrile, no other Covid symptoms Decadron 6 mg IV daily No wheezing on exam Continue treatment as above yet (2) Encephalopathy: Plan: Differential includes metabolic in setting of LOUISE and Covid infection, in addition to potential intracranial origin with known meningioma with slight mass-effect and new brainstem calcification suspicious for metastatic cancer without signs of edema on imaging Continue treatment for LOUISE and Covid as otherwise noticed Patient on dexamethasone for Covid treatment, no vasogenic edema on initial imaging will defer high-dose steroids at this time MRIbrain with contrast pending for characterization, patient with nearly resolved LOUISE Neurology consulted (3) Acute renal failure: Plan: Acute renal failure Creatinine acutely elevated to 3.29 from prior normal baseline, creatinine downtrending near normalized Nephrotoxins held, Lasix held, DILLON held Nephrology consulted. Received 500 cc bolus x2 in ER BMP daily - Will require followup imaging of L kidney w/ contrast once recovered and renal function normalized (4) Acute hyperkalemia: Plan: Hyperkalemia Patient nonoliguric With creatinine elevation to 3.29 from 1.73 on admission renal function as above Paced rhythm Veltassa, lactulose, insulin/dextrose, calcium gluconate given on admit, additional Veltassa, lactulose, bicarbonate fluids given with improvement Normalized 06/18, will discontinue lactulose and continue to trend (5) History of breast cancer: Plan: Concern for metastatic lesions, history of breast cancer Sclerotic lessions on T8/L5, multiple pulmonary nodules in lower lung. Additionally subcentimeter partially calcified lesion of central berta new from 2017 Oncology consulted. On admission discussed with patient and family at bedside, they have seen both [facility] and [facility] in the past but would prefer to be seen here by davon Lopez oncologist for additional recommendations and evaluation. Patient is somnolent and hard of hearing, is not able to participate in meaningful risk/benefits and goals of care conversation at time of assessment. Patient will get hearing aids and also undergo supportive treatment as otherwise noted, and revisit. - See above for additional family discussion. - Onc recommending outpt biopsy, PET scan, MRI-H. Given encephalopathy? Effective above, MRIbrain with contrast pending (6) Acute alteration in mental status: Plan: See encephalopathy above (7) Acute on chronic HFrEF (heart failure with reduced ejection fraction): Plan: Congestive heart failure with reduced ejection fraction EF 40-45% 2018 Furosemide 40 mg held for LOUISE, clinical volume depletion Patient intermittently hypotensive, appears volume overloaded Lasix held for LOUISE as noted Echo with normal LV size, EF 45%, hypokinesis of anterior septum and apical area CT as above Not on beta-benjamín prior to admission, lisinopril held for LOUISE (8) Presence of cardiac pacemaker: (9) Pulmonary edema: Plan: -See above (10) Hypertension: Plan: Hypertension Lisinopril held for LOUISE -Hypotensive on admission (11) Hypothyroid: Plan: Hypothyroidism Continue Synthroid 150 mcg p.o. daily (12) Diabetes: Plan: Type 2 diabetes mellitus Metformin 1 g p.o. every afternoon held SSI Simvastatin 40 mg p.o. nightly (13) Anxiety: Plan: Anxiety Continue venlafaxine 75 mg p.o. daily (14) Obesity, Class III, BMI 40-49.9 (morbid obesity): Plan: As above Plan: DVT prophylaxis: Dose adjusted Lovenox Diet: DM Admission and Anticipated Discharge Date Admission Date: June 15, 2021 Subjective Seen at bedside this morning. Oriented to place, month, and name still poorly oriented today requiring frequent redirection during conversation. Patient reports she feels tired, but otherwise "okay, I want to go home ". Reports she remembers what was discussed yesterday, but is unable to verbalize back to provider the details of the conversation. Denies headache, vision change, dizziness, shortness of breath, difficulty breathing, chest pain, chest pressure, diarrhea, constipation, pain at bedside. Reports she has been peeing okay, was on the commode this morning. Care discussed with family, concern for significant alteration in mental status in the last week from her prior baseline. Discussed CT findings, and mild mass- effect of meningioma which was known and reportedly stable. No cerebral edema or brainstem edema/mass-effect is appreciated. Will follow up with MRIbrain, kidney status improving and near normal with neurology input. Will discuss with patient's family, would like to continue with evaluation, recognize that goals of care are both for her to get stronger and be more independent towards her previous baseline but also to return home and not go to rehab so that she can be with her . Review of Systems Review of Systems: All systems reviewed & are unremarkable except as noted in Subjective Physical Exam Physical Exam: General: Oriented to name and season. Appears fatigued, but nontoxic. HEENT: Atraumatic, normocephalic. Visual acuity and hearing grossly intact, very hard of hearing without hearing aids. Pulm: CTAB A&P. -wheezes, -rales, -rhonchi. Symmetrical chest rise. No increase work of breathing. No respiratory distress. Cardiac: RRR, -mrg. Radial pulses intact and symmetrical. Abdominal: Nontender, nondistended, soft. BS present. Extremities: Warm, dry. Results & Data Results & Data ([facility]) Vital Signs (Past 12 Hours) Vital Signs Temp Pulse Pulse Resp BP Pulse Ox Pulse Ox 06/18/21 11:00 95 06/18/21 08:00 86 06/18/21 07:30 36.4 C L 62 18 133/77 95 06/18/21 06:56 36.4 C L 82 19 121/64 96 06/18/21 04:02 36.5 C 88 20 138/66 97 PG Care Time/CCT Total # of Minutes Spent Total Time Spent with Patient: Total time spent is greater than 50% in coordination of care (as documented) at patient's floor/unit and/or counseling patient: Coding Level of Care Code 59078 Subseq Hosp Care Lvl 3 Diagnoses Acute respiratory failure with hypoxia J96.01 Acute renal failure N17.9 Acute renal failure type: unspecified Acute hyperkalemia E87.5 History of breast cancer Z85.3 Acute alteration in mental status R41.82 Acute on chronic HFrEF (heart failure with reduced ejection fraction) I50.23 Presence of cardiac pacemaker Z95.0 Pulmonary edema J81.0 Chronicity: acute Hypertension I10 Hypertension type: essential hypertension Hypothyroid E03.9 Diabetes E11.9 Diabetes mellitus complication status: without complication 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: without truck 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 manager use Diabetes mellitus type: type 2 Anxiety F41.9 Encephalopathy G93.40 Obesity, Class III, BMI 40-49.9 (morbid obesity) E66.01 (1) Diabetes Diabetes mellitus complication status: without complication 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
[2021-06-18 16:39] LABS: BUN Creatinine Ratio 31.9 (10-20); Calcium 9.6 mg/dl (8.5-10.1); Creatinine Clr Calc Pharmacy 38.8 ml/min; Est GFR (African American) 43.6 ml/min; Est GFR (Non-African American) 37.6 ml/min; Potassium 5.1 mmol/L (3.5-5.1)
[2021-06-18] MEDS ORDERED: SODIUM CHLORIDE 0.9% 1000ML 500 ML IV ONE (17:23)
[2021-06-18] MEDS ORDERED: SODIUM CHLORIDE 0.9% 1000ML 1,000 ML IV SCH (17:30)
[2021-06-18] MEDS ORDERED: AZITHROMYCIN 500 MG in DEXTROSE 5% 250 ML IV ONE (18:59)
--- NOTE | 2021-06-18 19:58 | XRay Report ---
XR chest 1V portable CLINICAL HISTORY: tachypnea COMPARISON STUDY: Chest radiograph and chest CT June 15, 2021. FINDINGS: Dual lead left subclavian pacemaker is in place. Cardiomegaly is noted. No pneumothorax or pleural effusion. Pulmonary vascular congestion is unchanged. There is no consolidation to suggest pn eumonia. Numerous pulmonary nodules are better depicted on recent chest CT. IMPRESSION: 1. Cardiomegaly with pulmonary vascular congestion, unchanged. 2. Multiple pulmonary nodules shown on prior chest CT are not well visualized by radiography. ACT 112: Negative or not required by law. Electronically signed by: Ye Moncada M.D. 06/18/2021 7:56 PM
[2021-06-18] MEDS: dexAMETHasone 6 MG in SYRINGE 0 ML IV SCH (20:16)
[2021-06-18 20:26] LABS: Hematocrit (blood only) 33.7 % (37-47); Hemoglobin 10.9 g/dL (12.0-16.0); Immature Granulocytes # (auto) 0.02 K/uL (0.00-0.02); Immature Granulocytes % (auto) 0.3 %; Lymphocytes # (auto) 0.93 K/uL (1.2-3.4); Lymphocytes % (auto) 13.9 %; Mean Corpuscular Hemoglobin 32.5 pg (25-34); Mean Corpuscular Volume 100.6 fL (80-100); Mean Platelet Volume 8.5 fL (7.4-10.4); Monocytes # (auto) 0.42 K/uL (0.11-0.59); Monocytes % (auto) 6.3 %; Neutrophils # (auto) 5.34 K/uL (1.4-6.5); Neutrophils % (auto) 79.5 %; Platelet Count 160 K/uL (130-400); RDW Standard Deviation 51.7 fL (36.4-46.3); Red Blood Count 3.35 M/uL (4.2-5.4); White Blood Count 6.71 K/uL (4.8-10.8)
[2021-06-18 20:29] LABS: Allen Test POS (Pos); Base Excess ABG -2.7 mEq/L (-9-1.8); HCO3 ABG 20 mmol/L (19-24); PCO2 ABG 30 mmHg (35-46); PO2 ABG 63 mmHg (80-95); pH ABG 7.45 (7.35-7.45)
[2021-06-18 20:33] LABS: Mean Corpuscular Hgb Conc 32.3 g/dL (32-36)
[2021-06-19] MEDS: LEVOTHYROXINE SODIUM 150 MCG TABLET PO SCH (06:30)
[2021-06-19 07:14] LABS: BUN Creatinine Ratio 29.4 (10-20); Calcium 8.6 mg/dl (8.5-10.1); Est GFR (African American) 41.2 ml/min; Est GFR (Non-African American) 35.5 ml/min; Potassium 4.8 mmol/L (3.5-5.1)
[2021-06-19] MEDS: THIAMINE HCL 100 MG TAB PO SCH (09:16)
[2021-06-19] MEDS: ENOXAPARIN INJ 40 MG/0.4 ML SYR SQ SCH ×2 (09:16→21:08)
[2021-06-19] MEDS: VENLAFAXINE HCL XR 75 MG CAPXR PO SCH (09:16)
[2021-06-19] MEDS: FOLIC ACID 1 MG TAB PO SCH (09:17)
[2021-06-19] MEDS: LACTULOSE SYRUP 30 GM/45 ML UDP PO SCH ×3 (09:17→22:48)
[2021-06-19] MEDS: INSULIN GLARGINE SOLOSTAR 100 UNITS/ML 3 ML PEN SC SCH ×2 (09:39→21:38)
[2021-06-19] MEDS: INSULIN ASPART 100 UNITS/ML 3 ML PEN SC SCH ×4 (09:39→21:37)
[2021-06-19] MEDS ORDERED: dexAMETHasone 4 MG in SYRINGE 0 ML IV ONE (17:00)
[2021-06-19 17:39] LABS: Appearance Urine Turbid (Clear); Bacteria Urine Automated Negative (Negative); Bilirubin Urine Negative (Negative); Blood Urine 2+ (Negative); Color Urine Yellow; Epithelial Cell Urine Auto >30 /lpf (0-5); Glucose Urine UA Negative (Negative); Ketones Urine Negative (Negative); Leukocyte Esterase Urine Negative (Negative); Nitrite Urine Negative (Negative); Protein Urine 2+ (Negative); Specific Gravity Urine 1.019 (1.000-1.030); Urobilinogen Urine Negative (Negative)
[2021-06-19 18:09] LABS: Uric Acid Crystals Urine Present (None Prsent)
--- NOTE | 2021-06-19 19:35 | Hospitalist Progress Note ---
Date of Service June 19, 2021 Assessment & Plan (1) Acute respiratory failure with hypoxia: Plan: Social: Discussed care with patient's family by phone. CT chest relatively clear, no signs of pneumonia, antibiotics discontinued. Continue Covid treatment. [place] ent with metabolic acidosis in the setting of acute injury kidney and hyperkalemia on admission, improving with supportive care. Continuing steroids, Covid treatment and care, stopping Veltassa, continuing lactulose and trending BMP at this time. Patient was also seen by oncology today. Recommending CT- guided lung biopsy, PET/CT, and brain MRI all as outpatient. Patient with sclerotic lesions and pulmonary nodules with potential central berta intracranial lesion also suspicious for potential metastatic cancer, this was discussed with patient on admission but due to difficulty hearing and confusion in the setting of acute illness was understood by family but not the patient. 06/18: Care discussed with family, concern for significant alteration in mental status in the last week from her prior baseline. Discussed CT findings, and mild mass-effect of meningioma which was known and reportedly stable. No cerebral edema or brainstem edema/mass-effect is appreciated. Will follow up wi th MRIbrain, kidney status improving and near normal with neurology input. Will discuss with patient's family, would like to continue with evaluation, recognize that goals of care are both for her to get stronger and be more independent towards her previous baseline but also to return home and not go to rehab so that she can be with her . 06/19: Patient again with a repeat episode of confusion. On bedside evaluation patient with sharp difference in alertness from morning, but without focal neurologic deficits on exam. MRI pending, steroids empirically increased to every 6 hour dosing for potential edema as MRI may be delayed due to [facility] staffing being required due to pacer. Acute hypoxic respiratory failure suspect 2/2 Covid pneumonia - CT-CS: No acute cervical spine fracture or subluxation. 7 mm left apical pulmonary nodule. Correlation with a nonemergent follow-up chest CT is recommended to assess for additional pulmonary nodules. - CT-A/P: Numerous noncalcified solid pulmonary nodules within the lower lungs which are suspicious for metastatic disease. Follow-up nonemergent chest CT is recommended as well as correlation with patient's oncologic history. Sclerotic lesions within the T8 and L5 vertebral bodies which are suspicious for metastases. 6 mm left renal pelvis calculus. Right-sided nephrolithiasis. No hydronephrosis. No ureteral calculi. Hepatic steatosis and hepatomegaly.. Indeterminate 1 cm left renal lesion. This could reflect a hyperdense cyst or solid renal lesion. Colonic diverticulosis without evidence for acute diverticulitis. - CT-H: No acute intracranial abnormality. Subcentimeter partially calcified lesion of the central berta is new from 10/22/2016. Considering the pulmonary lesions seen on the CT abdomen and pelvis study of same day, a metastatic focus is within the differential however would be atypical. Extra-axial lesion centered within the right cavernous sinus and middle cranial fossa suggestive of a meningioma redemonstrated. - CXR: Cardiomegaly with pulmonary vascular congestion and interstitial coarsening suggestive of pulmonary edema versus interstitial pneumonitis. - 37.7*H, COVID+, on admission - WBC 4.26 on admission - Hgb stable - VBG consistent with metabolic acidosis, gradually improving with support of LOUISE as below - K 6.5 on admission, management as below - Cr 3.29 on admission, downtrending 1.60 06/17. - trop negative - CK neg - AST 159 (prior 145). Trended. - COVID POSITIVE - TTE 09/2018: LVEF 40-45% - Remote hx of breast cancer thought adequately treated - Febrile on admission, remains afebrile - Empiric rocephin for bacterial coverage on admission, discontinued given CT results CT chest1. Numerous noncalcified pulmonary nodules throughout both lungs characteristic of metastatic lung disease. Mild interstitial fibrotic changes are also present. There is no acute chest disease on these noncontrast images. No evidence for pathologic adenopathy. Coronary artery calcification. Hepa tomegaly. Additional nonacute findings as delineated above. COVID-19 positive Remdesivir not indicated due to GFR 15 Patient hypoxic but with elevated pro-[place] and febrile, no other Covid symptoms Decadron 6 mg IV daily converted to 4 mg every 6 hours as noted above No wheezing on exam Continue treatment as above yet (2) Encephalopathy: Plan: Differential includes metabolic in setting of LOUISE and Covid infection, in addition to potential intracranial origin with known meningioma with slight mass-effect and new brainstem calcification suspicious for metastatic cancer without signs of edema on imaging Continue treatment for LOUISE and Covid as otherwise noticed Patient on dexamethasone for Covid treatment No vasogenic edema appreciated on initial imaging, patient with morning improvement around steroid dosing in afternoon fluctuation in mentation. On reevaluation no focal neuro deficits but dramatic increase in somnolence and ABG did not indicate hypercarbic retention. Steroids empirically increased to 4 mg every 6 hours in case of vasogenic edema as cause, MRI as below. If negative consider decreased back to daily Covid dosing and suspect due to delirium/Covid illness with impaired baseline. MRIbrain pending, contrast deferred due to risk of systemic fibrosis in the setting of LOUISE (3) Acute renal failure: Plan: Acute renal failure Creatinine acutely elevated to 3.29 from prior normal baseline, creatinine initially improved, remains above normal Nephrotoxins held, Lasix held, DILLON held Nephrology consulted. Received 500 cc bolus x2 in ER BMP daily - Will require followup imaging of L kidney w/ contrast once recovered and renal function normalized (4) Acute hyperkalemia: Plan: Hyperkalemia Patient nonoliguric With creatinine elevation to 3.29 from 1.73 on admission renal function as above Paced rhythm Veltassa, lactulose, insulin/dextrose, calcium gluconate given on admit, additional Veltassa, lactulose, bicarbonate fluids given with improvement Normalized 06/18, will discontinue lactulose and continue to trend (5) History of breast cancer: Plan: Concern for metastatic lesions, history of breast cancer Sclerotic lessions on T8/L5, multiple pulmonary nodules in lower lung. Additionally subcentimeter partially calcified lesion of central berta new from 2016 Oncology consulted. On admission discussed with patient and family at bedside, [place] [facility] [place] [place] [facility] in the past but would prefer to be seen here by davon Lopez oncologist for additional recommendations and evaluation. Patient is somnolent and hard of hearing, is not able to participate in meaningful risk/benefits and goals of care conversation at time of assessment. Patient will get hearing aids and also undergo supportive treatment as otherwise noted, and revisit. - See above for additional family discussion. - Onc recommending outpt biopsy, PET scan, MRI-H. Given encephalopathy? Concern for mentation, MRI brain ordered while inpatient pending as above (6) Acute alteration in mental status: Plan: See encephalopathy above (7) Acute on chronic HFrEF (heart failure with reduced ejection fraction): Plan: Congestive heart failure with reduced ejection fraction EF 40-45% 2018 Furosemide 40 mg held for LOUISE, clinical volume depletion Patient intermittently hypotensive, appears volume overloaded Lasix held for LOUISE as noted Echo with normal LV size, EF 45%, hypokinesis of anterior septum and apical area CT as above Not on beta-benjamín prior to admission, lisinopril held for LOUISE (8) Presence of cardiac pacemaker: (9) Pulmonary edema: Plan: -See above (10) Hypertension: Plan: Hypertension Lisinopril held for LOUISE -Hypotensive on admission (11) Hypothyroid: Plan: Hypothyroidism Continue Synthroid 150 mcg p.o. daily (12) Diabetes: Plan: Type 2 diabetes mellitus Metformin 1 g p.o. every afternoon held SSI Simvastatin 40 mg p.o. nightly (13) Anxiety: Plan: Anxiety Continue venlafaxine 75 mg p.o. daily (14) Obesity, Class III, BMI 40-49.9 (morbid obesity): Plan: As above Plan: DVT prophylaxis: Dose adjusted Lovenox Diet: DM Admission and Anticipated Discharge Date Admission Date: June 15, 2021 Subjective Seen at bedside this morning. Morning assessment patient appeared improved, was alert to name, place, and to month although not today. Reported she looks forward to going home, but felt tired. No other questions or concerns. Has been up and was able to walk to the commode and get herself to the chair. On afternoon assessment patient increased with fatigue, poorly oriented, extremely somnolent. Arouses and is able to answer some questions, including her name her 's name and where she has but otherwise offers minimal conversation. Had a similar episode previously, no hypercarbia appreciated on ABG, CXR unchanged. Review of Systems Review of Systems: Unobtainable due to cognitive status Initially 10 point review systems negative limited somewhat by patient fatigue and cognitive status, unobtainable on revisit in afternoon Physical Exam Physical Exam: General: Oriented to name and season. Appears fatigued, but nontoxic. Update: On afternoon reassessment mentation limited, arouses and is able to give name, 's name, and place but appears more disoriented and very somnolent. HEENT: Atraumatic, normocephalic. Visual acuity and hearing grossly intact, very hard of hearing without hearing aids. Pupils intact and reactive to light, equal/symmetrical Pulm: CTAB A&P. -wheezes, -rales, -rhonchi. Symmetrical chest rise. No increase work of breathing. No respiratory distress. Cardiac: RRR, -mrg. Radial pulses intact and symmetrical. Abdominal: Nontender, nondistended, soft. BS present. Extremities: Warm, dry. Help Desk Supervisor strength 5/5 bilaterally, patient had just self transferred from bed to chair upon arriving to room and sat with good apparent hip flexion strength. Results & Data Results & Data ([facility]) Vital Signs (Past 12 Hours) Vital Signs Temp Pulse Pulse Resp BP Pulse Ox Pulse Ox 06/19/21 18:00 91 06/19/21 15:16 69 06/19/21 15:09 38.2 C H 70 18 111/57 L 94 06/19/21 11:00 92 06/19/21 10:56 36.6 C 88 17 101/55 L 92 06/19/21 08:00 83 PG Care Time/CCT Total # of Minutes Spent Total Time Spent with Patient: Total time spent is greater than 50% in coordination of care (as documented) at patient's floor/unit and/or counseling patient: Coding Level of Care Code 47816 Subseq Hosp Care Lvl 3 Diagnoses Acute respiratory failure with hypoxia J96.01 Encephalopathy G93.40 Acute renal failure N17.9 Acute renal failure type: unspecified Acute hyperkalemia E87.5 History of breast cancer Z85.3 Acute alteration in mental status R41.82 Acute on chronic HFrEF (heart failure with reduced ejection fraction) I50.23 Presence of cardiac pacemaker Z95.0 Pulmonary edema J81.0 Chronicity: acute Hypertension I10 Hypertension type: essential hypertension Hypothyroid E03.9 Diabetes E11.9 Diabetes mellitus type: type 2 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: without laborer marine terminal use Diabetes mellitus complication status: without complication Anxiety F41.9 Obesity, Class III, BMI 40-49.9 (morbid obesity) E66.01 (1) Acute renal failure Acute renal failure type: unspecified Qualified Code(s): N17.9 - Acute kidney failure, unspecified (2) Pulmonary edema Chronicity: acute Qualified Code(s): J81.0 - Acute pulmonary edema (3) Hypertension Hypertension type: essential hypertension Qualified Code(s): I10 - Essential (primary) hypertension (4) Diabetes Diabetes mellitus type: type 2 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
--- NOTE | 2021-06-19 19:41 | History & Physical Report ---
Date of Service June 15, 2021 Assessment & Plan (1) Acute alteration in mental status: (2) Acute hyperkalemia: (3) Acute on chronic HFrEF (heart failure with reduced ejection fraction): (4) Acute renal failure: (5) Acute respiratory failure with hypoxia: (6) Anxiety: (7) Hypothyroid: (8) Hypertension: (9) History of breast cancer: (10) Encephalopathy: (11) Diabetes: (12) Pneumonia due to COVID-19 virus: (13) Presence of cardiac pacemaker: (14) Weakness: Plan: Acute hypoxic respiratory failure - CT-CS:No acute cervical spine fracture or subluxation. 7 mm left apical pulmonary nodule. Correlation with a nonemergent follow-up chest CT is recommended to assess for additional pulmonary nodules. - CT-A/P: Numerous noncalcified solid pulmonary nodules within the lower lungs which are suspicious for metastatic disease. Follow-up nonemergent chest CT is recommended as well as correlation with patient's oncologic history. Sclerotic lesions within the T8 and L5 vertebral bodies which are suspicious for metastases. 6 mm left renal pelvis calculus. Right-sided nephrolithiasis. No hydronephrosis. No ureteral calculi. Hepatic steatosis and hepatomegaly.. Indeterminate 1 cm left renal lesion. This could reflect a hyperdense cyst or solid renal lesion. Colonic diverticulosis without evidence for acute diverticulitis. - CT-H: No acute intracranial abnormality. Subcentimeter partially calcified lesion of the central berta is new from 10/22/2016. Considering the pulmonary lesions seen on the CT abdomen and pelvis study of same day, a metastatic focus is within the differential however would be atypical. Extra-axial lesion centered within the right cavernous sinus and middle cranial fossa suggestive of a meningioma redemonstrated. - CXR: Cardiomegaly with pulmonary vascular congestion and interstitial coarsening suggestive of pulmonary edema versus interstitial pneumonitis. - 37.7*H, COVID+, - WBC 4.26 - Hgb - VB.32/45/37 - K 6.5 - Cr 3.29 (1.73) - trop negative - CK ne - AST 159 (prior 145) - COVID POSITIVE - TTE 09/2018: LVEF 40-45% Nuclear stress test 12/03/2020: - Remote hx of breast cancer thought adequately treated - Febrile - Empiric rocephin for bacterial coverage CT chest pending COVID-19 positive Remdesivir not indicated due to GFR 15 Patient hypoxic but with elevated pro-[place] and febrile, no other Covid symptoms Steroids temporarily deferred No wheezing on exam Continue treatment as above (2) Acute renal failure: Plan: Acute renal failure Creatinine acutely elevated to 3.29 from prior normal baseline, slight uptrend in previous month Nephrotoxins held, Lasix held, DILLON held Nephrology consulted Received 500 cc bolus x2 in ER, continue IVF M as above and follow volume status BMP daily (3) Acute hyperkalemia: Plan: Hyperkalemia Patient nonoliguric, putting out urine but reduced in the last 24 hours With creatinine elevation to 3.29 from 1.73, Paced rhythm Veltassa, lactulose, insulin/dextrose, calcium gluconate given BMP every 6 hours Nephrology consulted for acute renal failure with hyperkalemia (4) Acute alteration in mental status: (5) Acute on chronic HFrEF (heart failure with reduced ejection fraction): Plan: Congestive heart failure with reduced ejection fraction EF 40-45% 2018 Furosemide 40 mg held for LOUISE, clinical volume depletion Patient intermittently hypotensive, appears volume overloaded Lasix held for LOUISE as noted Echo pending CT pending Not on beta-benjamín prior to admission, lisinopril held for LOUISE (6) Presence of cardiac pacemaker: (7) Pulmonary edema: Plan: -See above (8) History of breast cancer: Plan: Concern for metastatic lesions, history of breast cancer Sclerotic lessions on T8/L5, multiple pulmonary nodules in lower lung. Additionally subcentimeter partially calcified lesion of central berta new from 2017 Oncology consulted. Discussed with patient and family at bedside, they have seen both [facility] [place] and [facility] in the past but would prefer to be seen here by [facility] oncologist for additional recommendations and evaluation. Patient is somnolent and hard of hearing, is not able to participate in meaningful risk/benefits and goals of care conversation at time of assessment. Patient will get hearing aids and also undergo supportive treatment as otherwise noted, and revisit. Palliative care consulted, discussed with family (9) Hypertension: Plan: Hypertension Lisinopril held for LOUISE -Hypotensive on admission (10) Hypothyroid: Plan: Hypothyroidism Continue Synthroid 150 mcg p.o. daily (11) Diabetes: Plan: Type 2 diabetes mellitus Metformin 1 g p.o. every afternoon held SSI Simvastatin 40 mg p.o. nightly Anxiety Continue venlafaxine 75 mg p.o. daily DVT prophylaxis: Heparin Diet: DM Admission and Anticipated Discharge Date Admission Date: June 15, 2021 History of Present Illness Chief Complaint: weakness Primary Care Provider: Hubert Cobos MD Ivett is a 70-year-old female with a past medical history of cardiomyopathy, osteoarthritis, cardiac pacemaker who presented with altered mental status. Has had fever in the last week and generalized weakness. On arrival to ER patient was noted to be hypoxic in the 70s. Remote hx of breast cancer s/p lumpectomy and radiation with Dr. Dominique and Dr. Hernadez. Weakness greatly increased in last week with some muscle jerking, weakness progressive for several weeks. Patient endorses fatigue, general feeling of unwellness. 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 Some fatigue, No chest pain, chest pressure. No leg swelling. Endorses some shortness of breath without difficulty breathing. Endorses history of pacer. History limited by hard of hearing and sedation, collateral taken from family who endorse progressive fatigue acutely worsened over 1 week. Endorses history of hypertension, diabetes, thyroid medication, and cardiac pacemaker. Medical History: Reviewed Medications: Reviewed.. Has only taken Synthroid today Surgical History: Reviewed Allergies: Reviewed. Mobic/Celebrix --> declined, bad sweats, dizziness Social History: No substances. Code Status: Disc w pt at bedside.DNR/DNI. Allergies Allergy/AdvReac Type Severity Reaction Status Date / Time No Known Drug Allergies Allergy Verified 09/23/20 11:42 meloxicam [From Mobic] AdvReac Confusion, Verified 06/15/21 14:04 fevers, sweats Home Medications Medication Instructions Recorded Confirmed Type furosemide 40 mg tablet 40 mg PO DAILY 05/02/19 06/15/21 History gabapentin 300 mg capsule 300 mg PO TID 05/02/19 06/15/21 History glimepiride 4 mg tablet 4 mg PO QAM 05/02/19 06/15/21 History levothyroxine 150 mcg tablet 150 mcg PO DAILY 05/02/19 06/15/21 History lisinopril 10 mg tablet 10 mg PO DAILY 05/02/19 06/15/21 History metformin 1,000 mg tablet 1,000 mg PO QPM 05/02/19 06/15/21 History potassium chloride 10 mEq 10 meq PO BID 05/02/19 06/15/21 History capsule,extended release simvastatin 40 mg tablet 40 mg PO HS 05/02/19 06/15/21 History venlafaxine 75 mg capsule,extended 75 mg PO DAILY 05/02/19 06/15/21 History release 24 hr zolpidem 10 mg tablet 10 mg PO HS 05/02/19 06/15/21 History celecoxib 200 mg capsule (Celebrex) 200 mg PO DAILY PRN #10 cap 10/21/20 06/15/21 Rx Past Med/Surg History Medical History Benign brain tumor meningioma Breast cancer s/p lumpectomy Diabetes Hypercholesteremia Hypertension Hypothyroid Surgical History History of carpal tunnel surgery History of cholecystectomy History of dilation and curettage History of lumpectomy History of parathyroid surgery Family History Father Pacemaker Social History Smoking Status: Never smoker Second Hand Exposure: No; Hx Alcohol Use: No Hx Substance Use: No Preferred Language: Georgian Communication Ability: Effective Director Of Housing Required: No Beliefs That Will Affect Care: None marital status: Current Living Situation: Spouse Other Information That Helps Us Care for You: No Feels Safe at Home: Yes Assistive Devices: Walker Review of Systems Review of Systems: Limited by sedatio n and hard of hear ing without hearin g aids. Collatera l from family. En dorses progressive weakness worsened in the last week, confusion. Inter mittent nonproduct steven cough. No tamara st pain/chest pres sure/nausea/vomiti ng/diarrhea. 10 p oint review system s negative otherwi se except as noted in HPI. Physical Exam Physical Exam: General: Hard of hearing, appears i ll but nontoxic. Somnolent. HEENT: Atraumatic, normoc ephalic. Pupils r eactive to light. Extraocular movem ents intact. Visu al acuity and hear ing grossly intact , although extreme ly hard of hearing without hearing a ids. Pulm: Diminis hed, reduced air m ovement in left lo wer lobe with biba silar crackles. S ymmetrical chest r ise. No increase w ork of breathing. No respiratory dis tress. Cardiac: RR R, -mrg. Radial pu lses intact and sy mmetrical. Abdomin al: Nontender, non distended, soft. B S present. Extremi ties: Warm, dry. Medical Delivery Technician strength inta ct and symmetrical . Bilateral pedal /ankle edema. Results & Data Results & Data ([facility]) Vital Signs (Past 12 Hours) Vital Signs Temp Pulse Pulse Resp BP Pulse Ox Pulse Ox 06/19/21 18:00 91 06/19/21 15:16 69 06/19/21 15:09 38.2 C H 70 18 111/57 L 94 06/19/21 11:00 92 06/19/21 10:56 36.6 C 88 17 101/55 L 92 06/19/21 08:00 83 Code Status & VTE Plan VTE Prophylaxis Plan VTE Prophylaxis will be ordered: Yes PG Care Time/CCT Total # of Minutes Spent Total Time Spent with Patient: Total time spent is greater than 50% in coordination of care (as documented) at patient's floor/unit and/or counseling patient: Coding Level of Care Code 75178 Initial Inpt Care Lvl 3 Diagnoses Acute alteration in mental status R41.82 Acute hyperkalemia E87.5 Acute on chronic HFrEF (heart failure with reduced ejection fraction) I50.23 Acute renal failure N17.9 Acute renal failure type: unspecified Acute respiratory failure with hypoxia J96.01 Anxiety F41.9 Hypothyroid E03.9 Hypertension I10 Hypertension type: essential hypertension History of breast cancer Z85.3 Encephalopathy G93.40 Diabetes E11.9 Diabetes mellitus type: type 2 Diabetes mellitus emt intermediate insulin use: without emt intermediate use Diabetes mellitus complication status: without complication Pneumonia due to COVID-19 virus U07.1; J12.82 Presence of cardiac pacemaker Z95.0 Weakness R53.1 (1) Acute renal failure Acute renal failure type: unspecified Qualified Code(s): N17.9 - Acute kidney failure, unspecified (2) Hypertension Hypertension type: essential hypertension Qualified Code(s): I10 - Essential (primary) hypertension (3) Diabetes Diabetes mellitus type: type 2 Diabetes mellitus emt intermediate insulin use: without detention use Diabetes mellitus complication status: without complication Qualified Code(s): E11.9 - Type 2 diabetes mellitus without complications
[2021-06-19] MEDS ORDERED: AZITHROMYCIN 250 MG in DEXTROSE 5% 250 ML IV SCH (21:00)
[2021-06-19] MEDS: dexAMETHasone 4 MG in SYRINGE 0 ML IV SCH (22:47)
[2021-06-20] MEDS ORDERED: ALBUT/IPRATROP 3MG/0.5MG NEB 3 ML VIAL NEB STA (00:51)
[2021-06-20] MEDS ORDERED: ALBUTEROL 0.083% NEBU SOLN 3 ML VIAL ONE (01:03)
[2021-06-20] MEDS: dexAMETHasone 4 MG in SYRINGE 0 ML IV SCH ×3 (05:34→17:35)
[2021-06-20] MEDS: LEVOTHYROXINE SODIUM 150 MCG TABLET PO SCH (05:34)
[2021-06-20] MEDS: VENLAFAXINE HCL XR 75 MG CAPXR PO SCH ×2 (08:02→08:56)
[2021-06-20] MEDS: THIAMINE HCL 100 MG TAB PO SCH ×2 (08:02→08:56)
[2021-06-20] MEDS: FOLIC ACID 1 MG TAB PO SCH ×2 (08:02→08:56)
[2021-06-20] MEDS: ENOXAPARIN INJ 40 MG/0.4 ML SYR SQ SCH (08:03)
[2021-06-20] MEDS: LACTULOSE SYRUP 30 GM/45 ML UDP PO SCH ×3 (08:03→14:00)
[2021-06-20] MEDS: INSULIN GLARGINE SOLOSTAR 100 UNITS/ML 3 ML PEN SC SCH (08:04)
[2021-06-20 08:41] LABS: BUN Creatinine Ratio 34.7 (10-20); Calcium 8.6 mg/dl (8.5-10.1); Creatinine Clr Calc Pharmacy 34.7 ml/min; Est GFR (African American) 38.6 ml/min; Est GFR (Non-African American) 33.3 ml/min; Potassium 4.8 mmol/L (3.5-5.1)
[2021-06-20 08:42] LABS: Hematocrit (blood only) 33.7 % (37-47); Hemoglobin 10.8 g/dL (12.0-16.0); Mean Corpuscular Hemoglobin 32.6 pg (25-34); Mean Corpuscular Volume 101.8 fL (80-100); Mean Platelet Volume 8.9 fL (7.4-10.4); Platelet Count 186 K/uL (130-400); RDW Coefficient of Variation 14.4 % (11.5-14.5); RDW Standard Deviation 53.7 fL (36.4-46.3); Red Blood Count 3.31 M/uL (4.2-5.4); White Blood Count 8.15 K/uL (4.8-10.8)
[2021-06-20] MEDS: INSULIN ASPART 100 UNITS/ML 3 ML PEN SC SCH ×3 (09:17→17:31)
[2021-06-20 09:30] LABS: Basophils # (auto) 0.01 K/uL (0-0.2); Basophils % (auto) 0.1 %; Immature Granulocytes # (auto) 0.03 K/uL (0.00-0.02); Immature Granulocytes % (auto) 0.4 %; Lymphocytes # (auto) 0.65 K/uL (1.2-3.4); Monocytes # (auto) 0.37 K/uL (0.11-0.59); Monocytes % (auto) 4.5 %; Neutrophils # (auto) 7.09 K/uL (1.4-6.5)
[2021-06-20] MEDS ORDERED: LORazepam 0.25 MG/0.5 ML VIAL IV STA (09:42)
[2021-06-20] MEDS ORDERED: LORazepam 2 MG/4 ML VIAL ONE (09:46)
[2021-06-20 11:02] LABS: Base Excess VBG -9.1 mEq/L; pH VBG 7.19 (7.36-7.41)
[2021-06-20] MEDS ORDERED: FUROSEMIDE 40 MG/4 ML VIAL IV ONE (11:05)
[2021-06-20] MEDS ORDERED: ACETAMINOPHEN 1000 MG/100 ML IV IV ONE ×2 (11:10→11:21)
[2021-06-20] MEDS ORDERED: FUROSEMIDE 40 MG/4 ML VIAL IV STA (11:10)
--- NOTE | 2021-06-20 11:16 | XRay Report ---
SINGLE VIEW CHEST CLINICAL HISTORY: Hypoxia. Covid pneumonia. FINDINGS: An AP, portable, upright chest radiograph is compared to study dated 06/18/2021 and correla stef with chest CT dated 06/15/2021. A 2-lead cardiac pacemaker is unchanged in position and partially obscures the left mid chest. The heart is enlarged noting atherosclerotic calcification of the thora cic aorta. Multifocal airspace consolidation is seen throughout both lungs, right greater than left. This has significantly worsened as compared to 06/18/2021. This largely obscures underlying pulmonary nodules. No large pleural effusion or pneumothorax is seen. The skeletal structures are osteopenic. The bony thorax is grossly intact. IMPRESSION: 1. Multifocal airspace consolidation has significantly worsened as compared to 06/18/2021. This is co nsistent with the reported history of viral pneumonia. Radiographic follow-up to resolution is recomm ended. Correlate clinically for evidence of superimposed pulmonary edema. 2. Cardiomegaly and cardiac pacemaker. 3. No large pleural effusion is identified. ACT 112: Negative or not required by law. Electronically signed by: Donell Mortensen M.D. 06/20/2021 11:15 AM
[2021-06-20 11:19] LABS: Thyroid Stimulating Hormone 0.044 uIu/ml (0.300-4.500)
[2021-06-20] MEDS ORDERED: MoRPHine SULFATE 2 MG/ML CARP IV PRN (11:27)
[2021-06-20] MEDS ORDERED: ACETAMINOPHEN 1,000 MG/100 ML VIAL IV ONE (11:30)
--- NOTE | 2021-06-20 11:44 | Hospitalist Progress Note ---
Date of Service June 20, 2021 Assessment & Plan (1) Acute respiratory failure with hypoxia and hypercapnia: Plan: Patient with severe, progressive acute hypoxic/hypercarbic respiratory failure this am. Multifactorial - COVID-19 pneumonia + acute/chronic systolic CHF +/- bacterial superinfection. She is now hypercarbic and in significant distress despite BiPAP. She has been on high-dose steroids since yesterday due to concern that worsening mental status was cerebral edema from her meningioma +/- pontine lesion (?metastatic lesion). Will attempt lasix 60mg IV x 1 now for diuresis. Consider empiric IV antibiotics. I am very concerned that even with maximal medical efforts she will not survive this. I called and spoke with pt's 2 daughters, Cally and Rhona. I explained the current problems, the worsening status of this am, etc. They confirmed DNR/DNI status. I explained further that the likelihood of survival is very low and that we likely will need to pursue a comfort care pathway very soon. They voiced understanding. While awaiting diuresis will try to keep patient comfortable - give tylenol 1gm IV x 1 now for fever, and start morphine 2mg IV q1h prn for pain/air hunger. (2) Pneumonia due to COVID-19 virus: Plan: severe, much worse today, now with #1 above (3) Acute on chronic HFrEF (heart failure with reduced ejection fraction): Plan: EF 45% lasix 60mg IV x 1 now (4) Metabolic encephalopathy: Plan: obtunded 2nd to hypercarbia, high ammonia, encephalopathy from COVID; can't rule out new stroke; can't rule out intracranial metastatic disease (pontine lesion on CT head) (5) Obesity, Class III, BMI 40-49.9 (morbid obesity): (6) Diabetes: (7) Hypertension: (8) Hypothyroid: (9) History of breast cancer: (10) Acute renal failure: (11) Presence of cardiac pacemaker: (12) Lung nodules: Plan: worrisome for metastatic disease (13) Abnormal CT scan, head: Plan: baseline meningioma pontine metastatic lesion? other? (14) Meningioma: Plan: critical care time 60 minutes including complex care coordination, speaking with daughters, etc. Admission and Anticipated Discharge Date Admission Date: June 15, 2021 Subjective received urgent correspondence this am from staff that patient was not tolerating her MRI apparently when she laid flat for her MRI she became immediately cyanotic and desatted oxymask increased to 15 L and brought back to COVID unit prior to the MRI she was essentially unresponsive, unable to take pills, etc upon return to COVID unit she was having increased work of breathing, retractions STAT order for BIPAP upon my bedside arrival patient was on BIPAP with 100% FiO2 satting 86% on such patient completely unresponsive cxr just taken - extensive airspace opacities - much worse than previous cxr Review of Systems Review of Systems: Unobtainable due to reduced consciousness Physical Exam Physical Exam: gen - significant resp distress/increased work of breathing with tachypnea, retractions, accessory muscle use; unresponsive to sternal rub eyes - appear symmetric (did not have light to test pupillary response) neck - JVD to the jaw heart - tones very distant, s1 s2 lungs - extensive crackles all lung segments with increased work of breathing as above abd - soft NT ND BS+ ext - no edema neuro - equivocal babinski on R; neg on L; no spontaneous movements of any limb Results & Data Results & Data ([facility]) Vital Signs (Past 12 Hours) Vital Signs Temp Pulse Pulse Resp BP Pulse Ox 06/20/21 11:15 37.4 C 73 25 H 87/51 L 90 06/20/21 10:59 87 L 06/20/21 10:54 62 34 H 86 L 06/20/21 10:08 35 H 76 L 06/20/21 07:12 37.7 C H 90 22 120/53 L 92 06/20/21 05:44 108/54 L 06/20/21 03:23 37.3 C 93 H 28 H 94/50 L 92 06/20/21 01:57 37.4 C 99 H 32 H 110/53 L 93 06/20/21 01:52 103 H 94 06/20/21 01:14 70 34 H 93 06/20/21 00:51 32 H 90 06/19/21 23:48 60 Laboratory Results Laboratory Results - last 24 hr 06/19/21 06/19/21 06/19/21 11:44 16:38 17:25 WBC RBC Hgb Hct MCV MCH MCHC RDW Std Deviation RDW Coeff of Edy Plt Count MPV Immature Gran % (Auto) Neut % (Auto) Lymph % (Auto) [place] % (Auto) Eos % (Auto) Baso % (Auto) Neut # (Auto) Lymph # (Auto) [place] # (Auto) Eos # (Auto) Baso # (Auto) Immature Gran # (Auto) VBG pH VBG pCO2 VBG pO2 VBG HCO3 VBG O2 Saturation VBG Base Excess Barometric Pressure Sodium Potassium Chloride Carbon Dioxide Anion Gap BUN Creatinine Est Cr Clr Drug Dosing Est GFR ( Amer) Est GFR (Non-Af Amer) BUN/Creatinine Ratio Glucose POC Glucose 212 H 151 H Calcium AST ALT Ammonia Total Creatine Kinase NT-Pro-B Natriuret Pep TSH Urine Color Yellow Urine Appearance Turbid A Urine pH 5.0 Ur Specific Raymond 1.019 Urine Protein 2+ H Urine Glucose (UA) Negative Urine Ketones Negative Urine Blood 2+ H Urine Nitrite Negative Urine Bilirubin Negative Urine Urobilinogen Negative Ur Leukocyte Esterase Negative Urine WBC (Auto) 5-10 H Urine RBC (Auto) 10-30 H U Hyaline Cast (Auto) 10-30 H U Epithel Cells (Auto) >30 H Urine Bacteria (Auto) Negative Ur Renal Epithelial Cell Not Reportable Uric Acid Crystals Present A Urine Yeast Not Reportable 06/19/21 06/20/21 06/20/21 21:09 07:54 08:03 WBC RBC Hgb Hct MCV MCH MCHC RDW Std Deviation RDW Coeff of Edy Plt Count MPV Immature Gran % (Auto) Neut % (Auto) Lymph % (Auto) [place] % (Auto) Eos % (Auto) Baso % (Auto) Neut # (Auto) Lymph # (Auto) [place] # (Auto) Eos # (Auto) Baso # (Auto) Immature Gran # (Auto) VBG pH VBG pCO2 VBG pO2 VBG HCO3 VBG O2 Saturation VBG Base Excess Barometric Pressure Sodium 145 Potassium 4.8 Chloride 115 H Carbon Dioxide 18 L Anion Gap 11.0 BUN 54 H Creatinine 1.56 H Est Cr Clr Drug Dosing 34.7 Est GFR ( Amer) 38.6 Est GFR (Non-Af Amer) 33.3 BUN/Creatinine Ratio 34.7 H Glucose 263 H POC Glucose 196 H 236 H Calcium 8.6 AST ALT Ammonia Total Creatine Kinase NT-Pro-B Natriuret Pep TSH Urine Color Urine Appearance Urine pH Ur Specific Raymond Urine Protein Urine Glucose (UA) Urine Ketones Urine Blood Urine Nitrite Urine Bilirubin Urine Urobilinogen Ur Leukocyte Esterase Urine WBC (Auto) Urine RBC (Auto) U Hyaline Cast (Auto) U Epithel Cells (Auto) Urine Bacteria (Auto) Ur Renal Epithelial Cell Uric Acid Crystals Urine Yeast 06/20/21 06/20/21 06/20/21 08:03 10:37 10:37 WBC 8.15 RBC 3.31 L Hgb 10.8 L Hct 33.7 L MCV 101.8 H MCH 32.6 MCHC 32.0 RDW Std Deviation 53.7 H RDW Coeff of Edy 14.4 Plt Count 186 MPV 8.9 Immature Gran % (Auto) 0.4 Neut % (Auto) 87.0 Lymph % (Auto) 8.0 [place] % (Auto) 4.5 Eos % (Auto) 0.0 Baso % (Auto) 0.1 Neut # (Auto) 7.09 H Lymph # (Auto) 0.65 L [place] # (Auto) 0.37 Eos # (Auto) 0.00 Baso # (Auto) 0.01 Immature Gran # (Auto) 0.03 H VBG pH VBG pCO2 VBG pO2 VBG HCO3 VBG O2 Saturation VBG Base Excess Barometric Pressure Sodium Potassium Chloride Carbon Dioxide Anion Gap BUN Creatinine Est Cr Clr Drug Dosing Est GFR ( Amer) Est GFR (Non-Af Amer) BUN/Creatinine Ratio Glucose POC Glucose Calcium AST 178 H ALT 48 Ammonia 36.5 H Total Creatine Kinase 110 NT-Pro-B Natriuret Pep 50953 H TSH 0.044 L Urine Color Urine Appearance Urine pH Ur Specific Raymond Urine Protein Urine Glucose (UA) Urine Ketones Urine Blood Urine Nitrite Urine Bilirubin Urine Urobilinogen Ur Leukocyte Esterase Urine WBC (Auto) Urine RBC (Auto) U Hyaline Cast (Auto) U Epithel Cells (Auto) Urine Bacteria (Auto) Ur Renal Epithelial Cell Uric Acid Crystals Urine Yeast 06/20/21 10:49 WBC RBC Hgb Hct MCV MCH MCHC RDW Std Deviation RDW Coeff of Edy Plt Count MPV Immature Gran % (Auto) Neut % (Auto) Lymph % (Auto) [place] % (Auto) Eos % (Auto) Baso % (Auto) Neut # (Auto) Lymph # (Auto) [place] # (Auto) Eos # (Auto) Baso # (Auto) Immature Gran # (Auto) VBG pH 7.19 L VBG pCO2 52 H VBG pO2 43 VBG HCO3 19 VBG O2 Saturation 67.0 VBG Base Excess -9.1 Barometric Pressure 732.0 Sodium Potassium Chloride Carbon Dioxide Anion Gap BUN Creatinine Est Cr Clr Drug Dosing Est GFR ( Amer) Est GFR (Non-Af Amer) BUN/Creatinine Ratio Glucose POC Glucose Calcium AST ALT Ammonia Total Creatine Kinase NT-Pro-B Natriuret Pep TSH Urine Color Urine Appearance Urine pH Ur Specific Raymond Urine Protein Urine Glucose (UA) Urine Ketones Urine Blood Urine Nitrite Urine Bilirubin Urine Urobilinogen Ur Leukocyte Esterase Urine WBC (Auto) Urine RBC (Auto) U Hyaline Cast (Auto) U Epithel Cells (Auto) Urine Bacteria (Auto) Ur Renal Epithelial Cell Uric Acid Crystals Urine Yeast Diagnostic Findings Chest X-Ray 06/20/21 10:35 SINGLE VIEW CHEST CLINICAL HISTORY: Hypoxia. Covid pneumonia. FINDINGS: An AP, portable, upright chest radiograph is compared to study dated 06/18/2021 and correlated with chest CT dated 06/15/2021. A 2-lead cardiac pacemaker is unchanged in position and partially obscures the left mid chest. The heart is enlarged noting atherosclerotic calcification of the thoracic aorta. Multifocal airspace consolidation is seen throughout both lungs, right greater than left. This has significantly worsened as compared to 06/18/2021. This largely obscures underlying pulmonary nodules. No large pleural effusion or pneumothorax is seen. The skeletal structures are osteopenic. The bony thorax is grossly intact. IMPRESSION: 1. Multifocal airspace consolidation has significantly worsened as compared to 06/18/2021. This is consistent with the reported history of viral pneumonia. Radiographic follow-up to resolution is recommended. Correlate clinically for evidence of superimposed pulmonary edema. 2. Cardiomegaly and cardiac pacemaker. 3. No large pleural effusion is identified. ACT 112: Negative or not required by law. Electronically signed by: Donell Mortensen M.D. 06/20/2021 11:15 AM PG Care Time/CCT Total # of Minutes Spent Total Time Spent with Patient: Total time spent is greater than 50% in coordination of care (as documented) at patient's floor/unit and/or counseling patient: Critical Care Time: Yes 60 Coding Level of Care Code None Diagnoses Acute on chronic HFrEF (heart failure with reduced ejection fraction) I50.23 Pneumonia due to COVID-19 virus U07.1; J12.82 Acute respiratory failure with hypoxia and hypercapnia J96.01; J96.02 Metabolic encephalopathy G93.41 Obesity, Class III, BMI 40-49.9 (morbid obesity) E66.01 Diabetes E11.9 Diabetes mellitus type: type 2 Diabetes mellitus long-term insulin use: without long-term use Diabetes mellitus complication status: without complication Hypertension I10 Hypertension type: essential hypertension Hypothyroid E03.9 History of breast cancer Z85.3 Acute renal failure N17.9 Acute renal failure type: unspecified Presence of cardiac pacemaker Z95.0 Lung nodules [address] scan, head R93.0 Meningioma D32.9 Additional Codes Critical Care Time - Critical Care Time: Yes ([id number]) Comment 60 min CC time (1) Diabetes Diabetes mellitus type: type 2 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
[2021-06-20 16:37] LABS: Base Excess VBG -4.8 mEq/L; Oxygen Saturation VBG 96.6 %; pH VBG 7.4 (7.36-7.41)
[2021-06-20] MEDS ORDERED: LORazepam 0.5 MG/1 ML VIAL IV PRN (17:56)
[2021-06-20] MEDS ORDERED: GLYCOPYRROLATE 0.2 MG/ML VIAL IV PRN (17:56)
[2021-06-20] MEDS ORDERED: STAT IV Infusion **Titration per Protocol STA (17:56)
[2021-06-20] MEDS ORDERED: ATROPINE SULFATE 1% OP SOLN 5 ML BTL SL PRN (17:56)
[2021-06-20] MEDS ORDERED: SCOPOLAMINE 1 MG TDSY TD SCH (18:00)
[2021-06-20] MEDS ORDERED: MoRPHine SULF/NSS 250 MG/250 ML BTL IV SCH (18:00)
[2021-06-20 20:07] VITALS: BP 141/66; PULSE 129; TEMP 99.1
[2021-06-20 21:47] VITALS: O2SAT 91
--- NOTE | 2021-06-20 22:50 | Death Pronouncement Note ---
Date of Service June 20, 2021 Pronouncement Note Admission Date Admission Date: June 15, 2021 Date and Time of Date of : 06/20/21 Time of : 22:46 Contributing Factors (1) Acute respiratory failure with hypoxia and hypercapnia: (2) Pneumonia due to COVID-19 virus: (3) Acute on chronic HFrEF (heart failure with reduced ejection fraction): (4) Metabolic encephalopathy: (5) Obesity, Class III, BMI 40-49.9 (morbid obesity): (6) Diabetes: (7) Hypertension: (8) Hypothyroid: (9) History of breast cancer: (10) Acute renal failure: (11) Presence of cardiac pacemaker: (12) Lung nodules: (13) Abnormal CT scan, head: (14) Meningioma: Hospital Course Hospital Course: See note Summary Additional details: Notified by nursing that patient had ceased to breath on 06/20/21. Patient evaluated at bedside and without pulse, respirations, heart sounds, pupils fixed and dilated. Pronounced at 22:46. Family noting that patient WOULD NOT want an autopsy. Additional Data Confirmation of : no pulse, no respirations, no heart sounds and pupils fixed and dilated Family: at bedside Attending/PCP notified?: No Attending physician: Tuan Trevizo Was code activated?: No Autopsy requested?: No forensic science examiner notified?: No Organ bank notified?: No Advance directives: No Resident Activity Tracking Resident Involvement: Resident Care Provided and Laboratory Aide Coverage Note Care Provided: Adult Hospital Medicine
[2021-06-21] MEDS ORDERED: CHECK SCOPOLAMINE PATCH PLACEMENT SCH
--- NOTE | 2021-06-21 21:06 | Discharge Summary ---
Date of Service Date of Admission: 06/15/2021 Date of : 06/20/21 Time of : 22:46 Admission HPI Per Admitting Provider Ivett is a 70-year-old female with a past medical history of cardiomyopathy, osteoarthritis, cardiac pacemaker who presented with altered mental status. Has had fever in the last week and generalized weakness. On arrival to ER patient was noted to be hypoxic in the 70s. Remote hx of breast cancer s/p lumpectomy and radiation with Dr. Dominique and Dr. Hernadez. Weakness greatly increased in last week with some muscle jerking, weakness progressive for several weeks. Patient endorses fatigue, general feeling of unwellness. 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 Some fatigue, No chest pain, chest pressure. No leg swelling. Endorses some shortness of breath without difficulty breathing. Endorses history of pacer. History limited by hard of hearing and sedation, collateral taken from family who endorse progressive fatigue acutely worsened over 1 week. Endorses history of hypertension, diabetes, thyroid medication, and cardiac pacemaker. Medical History: Reviewed Medications: Reviewed.. Has only taken Synthroid today Surgical History: Reviewed Allergies: Reviewed. Mobic/Celebrix --> declined, bad sweats, dizziness Social History: No substances. Code Status: Disc w pt at bedside.DNR/DNI. Principal Diagnosis Acute hypoxic/hypercapnic respiratory failure 2nd to COVID-19 Pneumonia Discharge Exam Last physical exam prior to patient going on comfort care: gen - significant resp distress/increased work of breathing with tachypnea, retractions, accessory muscle use; unresponsive to sternal rub neck - JVD to the jaw heart - tones very distant, s1 s2 lungs - extensive crackles all lung segments with increased work of breathing as above abd - soft NT ND BS+ ext - no edema neuro - equivocal babinski on R; neg on L; no spontaneous movements of any limb Exam at time of - pupils fixed/dilated, no response to pain, no response to voice, no audible heart tones, no spontaneous respiratory effort, no palpable pulse (exam performed by pronouncing physician). Discharge Data Allergies Allergy/AdvReac Type Severity Reaction Status Date / Time No Known Drug Allergies Allergy Verified 09/23/20 11:42 meloxicam [From Mobic] AdvReac Confusion, Verified 06/15/21 14:04 fevers, sweats Consultations Nephrology Oncology Cardiology Procedures Performed Echocardiogram - EF 45% with LV wall motion abnormalities Ordered Studies 06/15/21 10:47 CT head/brain wo con Stat 06/15/21 11:46 CT abd pelvis wo con Stat 06/15/21 12:15 CT cervical spine wo con Stat 06/15/21 17:07 CT chest diagnostic wo con Stat Hospital Course (1) Acute respiratory failure with hypoxia and hypercapnia: Patient presented with 1 week of fever, weakness/fatigue, and altered mental status. Upon ER presentation O2 sats were in the 70s. COVID-19 testing was positive. She was admitted and placed in airborne isolation. Initially she only required NC O2. Dexamethasone therapy was employed but Remdesivir was deferred as her CrCl was too low for such. She received diuresis for suspected acute/chronic CHF. Her stay was complicated by acute renal failure, mildly elevated ammonia levels, hyperkalemia, and transaminitis. There was also concern of bacterial superinfection. Patient's respiratory status gradually worsened during the stay, and on 06/20/21 she required the use of BIPAP due to the development of hypercarbia and increased work of breathing. There was suspicion that she was developing early ARDS from COVID-19 pneumonia. In the 48 hours prior to her her mental status worsened significantly as well. Her dexamethasone was increased to high-dose out of concern that she had cerebral edema from the pontine lesion seen on CT head. Attempts at MRI brain to determine the etiology of the pontine lesion were not successful. On the afternoon of 06/20 a discussion was held with her daughters. It was discussed that in order for her to survive she would need intubation & mechanical ventilation. Her family stated that Mrs Chan would not want full code measures. Her work of breathing continued to worsen further on 06/20 despite maximal medical efforts and BIPAP. At that time comfort care measures were initiated. The patient passed peacefully later that night at 2246 on 06/20. (2) Pneumonia due to COVID-19 virus: (3) Acute respiratory distress syndrome (ARDS) due to 2019 novel coronavirus: (4) Acute on chronic HFrEF (heart failure with reduced ejection fraction): (5) Metabolic encephalopathy: 2nd to hypercarbia, high ammonia, encephalopathy from COVID; could not rule out new stroke; could not rule out intracranial metastatic disease (pontine lesion on CT head) (6) Obesity, Class III, BMI 40-49.9 (morbid obesity): (7) Diabetes: (8) Hypertension: (9) Hypothyroid: (10) History of breast cancer: (11) Acute renal failure: (12) Presence of cardiac pacemaker: (13) Lung nodules: seen on CT imaging -- worrisome for metastatic disease, perhaps recurrent breast cancer (14) Abnormal CT scan, head: baseline meningioma seen pontine metastatic lesion vs other also seen (15) Meningioma: (16) Hyperkalemia: (17) Transaminitis: (18) Hyperammonemia: Total Time Total Time Spent Total Time Spent (In Minutes): 20 minutes - to complete discharge summary Discharge Plan Discharge Items Patient Disposition: Discharge Diagnosis: Addtl Attending Provider Instructions: See note Other Date/Time: 06/20/21 22:46 Coding Level of Care Code None Diagnoses Acute respiratory failure with hypoxia and hypercapnia J96.01; J96.02 Pneumonia due to COVID-19 virus U07.1; J12.82 Acute on chronic HFrEF (heart failure with reduced ejection fraction) I50.23 Metabolic encephalopathy G93.41 Obesity, Class III, BMI 40-49.9 (morbid obesity) E66.01 Diabetes E11.9 Diabetes mellitus complication status: without complication 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
== END 2021-06-20 23:58 | disposition expired | DRG 177 ==
LOC: ED 10:37 → SUATTDRO 14:37 → EDINP 14:37 → 2S 17:44 → 3N 06-20 18:22